=== PATIENT | female | born 1995 | race Caucasian/White ===

== ENCOUNTER 2016-09-04 19:25 | Emergency (ER) | payer OTHER ==
[2016-09-04] MEDS ORDERED: PYRIDOXINE 100 MG/ML 1 ML VIAL IVP STA (19:42)
[2016-09-04] MEDS ORDERED: diphenhydrAMINE 50 MG/ML 1 ML VIAL IVP STA (19:42)
[2016-09-04] MEDS ORDERED: SODIUM CHLORIDE 0.9% 1,000 ML IV STA ×2 (19:42)
[2016-09-04] MEDS ORDERED: SODIUM CHLORIDE 0.9% 500 ML IV STA (19:42)
[2016-09-04 20:11] LABS: Basophils % (A) 0 %; CH 32.2; CHCM 34.7; Eosinophils # (A) 0.1 k/uL (0-0.7); Eosinophils % (A) 1 %; HCT 35.8 % (34.0-46.0); HDW 2.67; HGB 12.3 gm/dL (11.4-16.0); Luc # (Auto) 0.26; Luc % (Auto) 3; Lymphocytes # (A) 2.1 k/uL (1.0-4.8); Lymphocytes % (A) 23 %; MCHC 34.3 g/dL (31.0-37.0); MCV 93.3 fL (80.0-100.0); Mean Platelet Volume 8.7; Monocytes # (A) 0.5 k/uL (0-1.0); Monocytes % (A) 5 %; Neutrophils # (A) 6.5 k/uL (1.3-7.7); Neutrophils % (A) 69 %; RBC 3.83 m/uL (3.80-5.40); RDW 13.5 % (11.5-15.5); WBC 9.5 k/uL (3.8-10.6); WBC (Perox) 10.04
[2016-09-04 20:25] LABS: ALT 28 U/L (9-52); AST 18 U/L (14-36); Alkaline Phosphatase 53 U/L (38-126); Anion Gap 11 mmol/L; Blood Urea Nitrogen 8 mg/dL (7-17); Calcium 9.1 mg/dL (8.4-10.2); Carbon Dioxide 24 mmol/L (22-30); Chloride 103 mmol/L (98-107); Glucose 78 mg/dL (74-99); Magnesium 1.8 mg/dL (1.6-2.3); Non-African American GFR(MDRD) >60 (>60 ml/min/1.73 sqM); Potassium 4.2 mmol/L (3.5-5.1); Sodium 138 mmol/L (137-145); Total Bilirubin 0.3 mg/dL (0.2-1.3); Total Protein 6.2 g/dL (6.3-8.2)
[2016-09-04 20:41] LABS: Amorphous Sediment,Urine Rare /hpf; Appearance,Urine Cloudy (Clear); Bacteria,Urine Rare /hpf; Bilirubin,Urine Negative (Negative); Glucose,Urine (UA) Negative (Negative); Ketones,Urine 3+ (Negative); Leukocyte Esterase,Urine Trace (Negative); Mucus,Urine Rare /hpf; Nitrite,Urine Negative (Negative); PH, Urine 6.5 (5.0-8.0); Particle Count 4159; Protein,Urine Negative (Negative); RBC,Urine 1 /hpf (0-5); Specific Gravity,Urine 1.012 (1.001-1.035); Squamous Epithelial Cell,Urine 4 /hpf (0-4); UA Billing (MACRO vs. MICRO) MICRO; Urobilinogen,Urine <2.0 mg/dL (<2.0); WBC,Urine 3 /hpf (0-5)
--- NOTE | 2016-09-04 20:56 | ED ---
General Adult HPI - General Chief complaint: Nausea/Vomiting/Diarrhea Stated complaint: 16 wks / vomiting Time Seen by Provider: 09/04/16 19:41 Source: patient, RN notes reviewed, old records reviewed Mode of arrival: ambulatory Limitations: no limitations - History of Present Illness Initial comments: This is a 21-year-old female here for nausea vomiting abdominal pain. Patient is around 1314 weeks . This is patient's . Patient also has had gallbladder issues with this . She is complaining of suprapubic of bowel pain as well as epigastric upper quadrant about pain, decreased appetite, anorexia, denying fever. No diarrhea. Patient to call her OB who was concerned and had her come to emergency room. Patient currently not actively vomiting. Denies any chest pain or shortness of breath - Related Data Home Medications Medication Instructions Recorded Confirmed Pnv with Ca,No.72/Iron/FA 1 tab PO DAILY 09/04/16 09/04/16 [ Plus Tablet] Allergies Allergy/AdvReac Type Severity Reaction Status Date / Time tramadol HCl [From Ultra] Allergy Nausea & Verified 09/04/16 20:33 Vomiting & Diarrhea Iodinated Contrast Media - AdvReac Vomiting Verified 09/04/16 20:33 Oral and [Iodinated Contrast Media - IV Dye] Review of Systems ROS Statement: Those systems with pertinent positive or pertinent negative responses have been documented in the HPI. ROS Other: All systems not noted in ROS Statement are negative. Past Medical History Past Medical History: No Reported History History of Any Multi-Drug Resistant Organisms: MRSA Date of last positivie culture/infection: unk MDRO Source:: unk Past Surgical History: Ear Surgery, Tonsillectomy Additional Past Surgical History / Comment(s): arm tumor bx, tubes in and out of ears Past Psychological History: Depression Smoking Status: Former smoker Past Alcohol Use History: None Reported Past Drug Use History: None Reported General Exam Limitations: no limitations General appearance: alert, in no apparent distress Head exam: Present: atraumatic, normocephalic, normal inspection Eye exam: Present: normal appearance, PERRL, EOMI. Absent: scleral icterus, conjunctival injection, periorbital swelling ENT exam: Present: normal exam, mucous membranes moist Neck exam: Present: normal inspection. Absent: tenderness, meningismus, lymphadenopathy Respiratory exam: Present: normal lung sounds bilaterally. Absent: respiratory distress, wheezes, rales, rhonchi, stridor Cardiovascular Exam: Present: regular rate, normal rhythm, normal heart sounds. Absent: systolic murmur, diastolic murmur, rubs, gallop, clicks GI/Abdominal exam: Present: soft, normal bowel sounds. Absent: distended, tenderness, guarding, rebound, rigid Extremities exam: Present: normal inspection, full ROM, normal capillary refill. Absent: tenderness, pedal edema, joint swelling, calf tenderness Back exam: Present: normal inspection Neurological exam: Present: alert, oriented X3, CN II-XII intact Psychiatric exam: Present: normal affect, normal mood Skin exam: Present: warm, dry, intact, normal color. Absent: rash Course Vital Signs 09/04/16 09/04/16 19:33 22:00 Temperature 98.0 F 97.8 F Pulse Rate 93 82 Respiratory 18 16 Rate Blood Pressure 104/62 107/64 O2 Sat by Pulse 97 98 Oximetry - Reevaluation(s) Reevaluation #1: 09/04/16 22:09 Patient's symptoms are improved Medical Decision Making - Medical Decision Making 18-year-old female to ER for nausea vomiting anorexia, positive . Imaging and lab tests is normal. Patient's symptoms are improved and can be discharged home, follow-up with primary care doctor for further evaluation of decreased appetite nausea and vomiting - Lab Data Result diagrams: 09/04/16 20:05 09/04/16 20:05 Lab Results 09/04/16 09/04/16 09/04/16 Range/Units 20:05 20:05 20:05 WBC 9.5 (3.8-10.6) k/uL RBC 3.83 (3.80-5.40) m/uL Hgb 12.3 (11.4-16.0) gm/dL Hct 35.8 (34.0-46.0) % MCV 93.3 (80.0-100.0) fL MCH 32.0 (25.0-35.0) pg MCHC 34.3 (31.0-37.0) g/dL RDW 13.5 (11.5-15.5) % Plt Count 160 (150-450) k/uL Neutrophils % 69 % Lymphocytes % 23 % Monocytes % 5 % Eosinophils % 1 % Basophils % 0 % Neutrophils # 6.5 (1.3-7.7) k/uL Lymphocytes # 2.1 (1.0-4.8) k/uL Monocytes # 0.5 (0-1.0) k/uL Eosinophils # 0.1 (0-0.7) k/uL Basophils # 0.0 (0-0.2) k/uL Sodium 138 (137-145) mmol/L Potassium 4.2 (3.5-5.1) mmol/L Chloride 103 (98-107) mmol/L Carbon Dioxide 24 (22-30) mmol/L Anion Gap 11 mmol/L BUN 8 (7-17) mg/dL Creatinine 0.40 L (0.52-1.04) mg/dL Est GFR (MDRD) Af Amer >60 (>60 ml/min/1.73 sqM) Est GFR (MDRD) Non-Af >60 (>60 ml/min/1.73 sqM) Glucose 78 (74-99) mg/dL Plasma Lactic Acid Cortez 0.7 (0.7-2.0) mmol/L Calcium 9.1 (8.4-10.2) mg/dL Magnesium 1.8 (1.6-2.3) mg/dL Total Bilirubin 0.3 (0.2-1.3) mg/dL AST 18 (14-36) U/L ALT 28 (9-52) U/L Alkaline Phosphatase 53 (38-126) U/L Total Protein 6.2 L (6.3-8.2) g/dL Albumin 3.8 (3.5-5.0) g/dL Urine Color Urine Appearance (Clear) Urine pH (5.0-8.0) Ur Specific [employer] (1.001-1.035) Urine Protein (Negative) Urine Glucose (UA) (Negative) Urine Ketones (Negative) Urine Blood (Negative) Urine Nitrate (Negative) Urine Bilirubin (Negative) Urine Urobilinogen (<2.0) mg/dL Ur Leukocyte Esterase (Negative) Urine RBC (0-5) /hpf Urine WBC (0-5) /hpf Ur Squamous Epith Cells (0-4) /hpf Amorphous Sediment (None) /hpf Urine Bacteria (None) /hpf Urine Mucus (None) /hpf 09/04/16 Range/Units 20:30 WBC (3.8-10.6) k/uL RBC (3.80-5.40) m/uL Hgb (11.4-16.0) gm/dL Hct (34.0-46.0) % MCV (80.0-100.0) fL MCH (25.0-35.0) pg MCHC (31.0-37.0) g/dL RDW (11.5-15.5) % Plt Count (150-450) k/uL Neutrophils % % Lymphocytes % % Monocytes % % Eosinophils % % Basophils % % Neutrophils # (1.3-7.7) k/uL Lymphocytes # (1.0-4.8) k/uL Monocytes # (0-1.0) k/uL Eosinophils # (0-0.7) k/uL Basophils # (0-0.2) k/uL Sodium (137-145) mmol/L Potassium (3.5-5.1) mmol/L Chloride (98-107) mmol/L Carbon Dioxide (22-30) mmol/L Anion Gap mmol/L BUN (7-17) mg/dL Creatinine (0.52-1.04) mg/dL Est GFR (MDRD) Af Amer (>60 ml/min/1.73 sqM) Est GFR (MDRD) Non-Af (>60 ml/min/1.73 sqM) Glucose (74-99) mg/dL Plasma Lactic Acid Cortez (0.7-2.0) mmol/L Calcium (8.4-10.2) mg/dL Magnesium (1.6-2.3) mg/dL Total Bilirubin (0.2-1.3) mg/dL AST (14-36) U/L ALT (9-52) U/L Alkaline Phosphatase (38-126) U/L Total Protein (6.3-8.2) g/dL Albumin (3.5-5.0) g/dL Urine Color Yellow Urine Appearance Cloudy H (Clear) Urine pH 6.5 (5.0-8.0) Ur Specific [employer] 1.012 (1.001-1.035) Urine Protein Negative (Negative) Urine Glucose (UA) Negative (Negative) Urine Ketones 3+ H (Negative) Urine Blood Negative (Negative) Urine Nitrate Negative (Negative) Urine Bilirubin Negative (Negative) Urine Urobilinogen <2.0 (<2.0) mg/dL Ur Leukocyte Esterase Trace H (Negative) Urine RBC 1 (0-5) /hpf Urine WBC 3 (0-5) /hpf Ur Squamous Epith Cells 4 (0-4) /hpf Amorphous Sediment Rare H (None) /hpf Urine Bacteria Rare H (None) /hpf Urine Mucus Rare H (None) /hpf - Radiology Data Radiology results: report reviewed (Ultrasound gallbladder negative for acute disease, ultrasound pelvis negative), image reviewed Disposition Clinical Impression: Abdominal pain affecting , Hyperemesis gravidarum Disposition: HOME SELF-CARE Condition: Good Instructions: Acute Nausea and Vomiting (ED) Referrals: Wiliam Prasad MD [Primary Care Provider] - 1-2 days
--- NOTE | 2016-09-04 21:49 | US ---
EXAMINATION TYPE: US gallbladder DATE OF EXAM: 09/04/2016 9:12 PM COMPARISON: NONE CLINICAL HISTORY: 16 weeks , vomiting, r/o gb anomalies. EXAM MEASUREMENTS: Liver Length: 15.0 cm Gallbladder Wall: 0.2 cm ChD: 0.3 cm Right Kidney: 11.3 x 6.1 x 4.5 cm TECHNOLOGIST IMPRESSION: Pancreas: tail not seen due to overlying bowel gas Liver: wnl Gallbladder: wnl Evidence for sonographic Montalvo's sign: neg CHD: wnl Right Kidney: wnl IMPRESSION: Normal gallbladder. No gallstones or dilated ducts. Right kidney appears normal. No free fluid. Normal Values: Liver Length: < 16cm wnl, 17-18cm upper limits, >18cm enlarged Renal Length = 9 - 12cm GB Wall: < 0.3cm CBD: < 0.6cm or < 1.0cm post cholecystectomy
--- NOTE | 2016-09-04 21:52 | US ---
EXAMINATION TYPE: US OB >= 14 wk fetus DATE OF EXAM: 09/04/2016 9:35 PM COMPARISON: None CLINICAL HISTORY: vomiting, 16 weeks , look at babies growth, TECHNIQUE: Transabdominal (TA) GESTATIONAL AGE / DATING Dates by LMP: (16 weeks/5 days) EDC: 02/14/2017 Dates by Current Scan: (15 weeks/6 days) EDC: 02/20/2017 SURVEY IUP: Single PLACENTA: Anterior PREVIA: No Previa LUKE: 10.1 cm CERVICAL LENGTH (transabdominal: norm > 3.0cm): 3.6 cm BIOMETRY PRESENTATION: Breech LIE: Longitudinal BPD: 3.2 cm 15 weeks / 6 days HC: 12.2 cm 16 weeks / 1 days AC: 9.7 cm 15 weeks / 5 days FL: 1.7 cm 15 weeks / 1 days ESTIMATED WEIGHT IN GRAMS: 126.5 grams ESTIMATED WEIGHT IN LBS/OZS: 0 lbs. 4 oz. WEIGHT PERCENTAGE BASED ON ESTABLISHED DATES: <3% HC/AC: 1.3 Normal FL/AC: 17.7 Normal HEART RATE: 160 bpm RHYTHM: Normal TECHNOLOGIST IMPRESSION: Live IUP measuring 15 weeks 6 days IMPRESSION: The ultrasound gestational age is 15 weeks 6 days. Cervix is closed. I see no complicating process. I do not have an old exam to compare to evaluate growth rate.
[2016-09-04 22:01] VITALS: BP 107/64; PULSE 82; RESP 16; TEMP 97.8
== END 2016-09-04 22:38 | disposition home or self-care (01) ==
LOC: EC 19:25
DX: O21.0 Mild hyperemesis gravidarum (principal); Z3A.15 15 weeks gestation of pregnancy; Z79.899 Other long term (current) drug therapy; Z88.5 Allergy status to narcotic agent; Z91.041 Radiographic dye allergy status; Z87.891 Personal history of nicotine dependence
CPT/HCPCS: 99284; 96374; 96375; 96361 ×2; 36415; 93005; 80053; 83605; 83735; 85025; 81001; 87086; 76805; 76705; J1200; J3415

== ENCOUNTER 2017-06-16 14:02 | Emergency (ER) | payer OTHER ==
[2017-06-16] MEDS ORDERED: ORPHENADRINE 30 MG/ML 2 ML VIAL IVP STA (14:28)
[2017-06-16] MEDS ORDERED: METOCLOPRAMIDE 5 MG/ML 2 ML VIAL IVP STA (14:28)
[2017-06-16] MEDS ORDERED: diphenhydrAMINE 50 MG/ML 1 ML VIAL IVP STA (14:28)
[2017-06-16] MEDS ORDERED: KETOROLAC 30 MG/ML 1 ML VIAL IVP STA (14:28)
--- NOTE | 2017-06-16 14:39 | ED ---
General Adult HPI - General Chief complaint: Head Injury Stated complaint: neck pain Time Seen by Provider: 06/16/17 14:15 Source: patient Mode of arrival: ambulatory Limitations: no limitations - History of Present Illness Initial comments: Nadiya is a 22-year-old female who presents to the emergency department for evaluation of headache and neck pain after a slip and fall yesterday. Patient reports that yesterday afternoon she was playing outside with her children, she states that she was running in the rain when she's and fell onto her right side , she reports she fell laterally and believes she may have struck the right side of her head on a toy on the ground. She denies any loss of consciousness. She was able to stand up immediately and ambulate independently into her home. She reports that she felt well and immediately afterwards but woke up this morning with aching pain in her neck and a headache. She does have a history of chronic migraines for which she takes Tylenol for and Fioricet. She reports that she has tried both of these this morning with no improvement in the neck pain or headache. - Related Data Home Medications Medication Instructions Recorded Confirmed Acetaminophen-Codeine 300-30mg 1 tab PO Q6H PRN 06/16/17 06/16/17 [Tylenol #3] Butalb/APAP/Caff 50-325-40Mg 1 tab PO Q4H PRN 06/16/17 06/16/17 [Fioricet 50-325-40] Ibuprofen [Motrin] 800 mg PO Q8H PRN 06/16/17 06/16/17 Previous Rx's Medication Instructions Recorded Methocarbamol [Robaxin-750] 750 mg PO TID #30 tablet 06/16/17 Allergies Allergy/AdvReac Type Severity Reaction Status Date / Time Iodinated Contrast- Oral and Allergy Rash/Hives Verified 06/16/17 14:43 IV Dye [Iodinated Contrast Media - IV Dye] tramadol HCl [From Ultram] Allergy Rash/Hives Verified 06/16/17 14:43 Review of Systems ROS Statement: Those systems with pertinent positive or pertinent negative responses have been documented in the HPI. ROS Other: All systems not noted in ROS Statement are negative. Past Medical History Past Medical History: No Reported History Additional Past Medical History / Comment(s): migraines, chronic neck pain./ History of Any Multi-Drug Resistant Organisms: None Reported Date of last positivie culture/infection: unk MDRO Source:: unk Past Surgical History: Ear Surgery, Tonsillectomy Additional Past Surgical History / Comment(s): arm tumor bx, tubes in and out of ears Past Psychological History: Anxiety, Depression Smoking Status: Current every day smoker Past Alcohol Use History: None Reported Past Drug Use History: None Reported General Exam Limitations: no limitations General appearance: alert, in no apparent distress Head exam: Present: atraumatic, normocephalic, normal inspection Eye exam: Present: normal appearance, PERRL, EOMI. Absent: scleral icterus, conjunctival injection, periorbital swelling, periorbital tenderness ENT exam: Present: normal exam, other (poor dentition, evidence of multiple tooth extractions, no broken teeth or oral injury) Neck exam: Present: normal inspection, tenderness (tenderness to palpation of paraspinal muscles, no midline tenderness), full ROM. Absent: lymphadenopathy, thyromegaly Respiratory exam: Present: normal lung sounds bilaterally. Absent: respiratory distress Cardiovascular Exam: Present: regular rate, normal rhythm GI/Abdominal exam: Present: soft, normal bowel sounds. Absent: distended Rectal exam: Present: deferred Extremities exam: Present: normal inspection, full ROM, normal capillary refill. Absent: pedal edema Back exam: Present: normal inspection, full ROM Neurological exam: Present: alert, oriented X3, CN II-XII intact, normal gait, other (normal strength in bilateral upper and lower extremities) Expanded Neurological exam: Present: protecting the airway. Absent: inattentive, memory loss-remote event, memory loss-recent event, ataxia, receptive aphasia, expressive aphasia, total aphasia, tremor Patient oriented to: Present: person, place, time Speech: Present: fluid speech Cranial nerves: EOM's Intact: Normal, Facial Sensation: Normal Motor strength exam: RUE: 5, LUE: 5, RLE: 5, LLE: 5 Eye Response: (4) open spontaneously Motor Response: (6) obeys commands Verbal Response: (5) oriented Psychiatric exam: Present: flat affect Skin exam: Present: warm, dry, intact. Absent: cyanosis, diaphoretic, erythema , petechiae, pallor, mottled, abrasion Course Vital Signs 06/16/17 06/16/17 14:09 16:07 Temperature 98.5 F 98 F Pulse Rate 80 79 Respiratory 20 16 Rate Blood Pressure 109/59 112/56 O2 Sat by Pulse 98 99 Oximetry Medical Decision Making - Medical Decision Making Patient was seen and evaluated, history was obtained from the patient and review of medical record History with a slip and fall yesterday, may have struck her head on a toy or the ground. No loss of consciousness, no memory change, no nausea or vomiting, no blurred vision this time the patient has no signs of significant intracranial injury or even a concussion. Patient with full range of motion the cervical spine, no focal neurologic deficit, no evidence of intoxication, no distracting injury. At this time the patient's cervical spine is cleared via Nexus criteria no further indication for imaging Patient with tenderness to palpation of the paraspinal muscles and complain of a headache, likely similar to a whiplash injury. At this point I will treat for headache. Patient received medications, was reevaluated and was sleeping comfortably in the bed. I woke the patient asked her how she was feeling short reported that she was feeling better. I had a conversation with patient regarding her symptoms. I advised her that she is likely suffering from cervical muscle strain and that she will likely have some tightness. I advised her to into her usual activities of daily living but to avoid any heavy lifting. I discussed with her the importance of stretching to prevent any further muscle spasm. I advised the patient we'll discharge her home on a by mouth muscle relaxant. I advised her to alternate heat and ice and to maintain hydration. All questions pertaining to care were answered to the best of my ability and patient was discharged home in stable condition. Disposition Clinical Impression: Fall at home, Cervical muscle strain, Headache Disposition: HOME SELF-CARE Condition: Good Instructions: Cervical Strain (ED) Prescriptions: Methocarbamol [Robaxin-750] 750 mg PO TID #30 tablet Referrals: Wiliam Prasad MD [Primary Care Provider] - 1-2 days Time of Disposition: 15:59
[2017-06-16 16:08] VITALS: BP 112/56; PULSE 79; RESP 16; TEMP 98
== END 2017-06-16 16:24 | disposition home or self-care (01) ==
LOC: EC 14:02
DX: S16.1XXA Strain of muscle, fascia and tendon at neck level, initial encounter (principal); R51 Headache; F17.200 Nicotine dependence, unspecified, uncomplicated; Z86.69 Personal history of other diseases of the nervous system and sense organs; Z91.041 Radiographic dye allergy status; Z88.5 Allergy status to narcotic agent; W01.0XXA Fall on same level from slipping, tripping and stumbling without subsequent striking against object, initial encounter; Y93.89 Activity, other specified; Y92.009 Unspecified place in unspecified non-institutional (private) residence as the place of occurrence of the external cause
CPT/HCPCS: 96375 ×4; 96374 ×2; 99283 ×2; J1200; J2360; J2765; J1885

== ENCOUNTER 2018-03-07 12:03 | Inpatient (IN) | payer OTHER ==
--- NOTE | 2018-03-07 12:46 | US ---
EXAMINATION TYPE: US OB limited DATE OF EXAM: 03/07/2018 COMPARISON: NONE CLINICAL HISTORY: heart tones. EXAM PERFORMED: Transabdominal (TA) GESTATIONAL AGE / DATING Physician Established: (37 weeks/1 days) EDC: 03/27/2018 No growth performed on today?s study per ordering physician HEART RATE: No heart tones Nurse in room for ultrasound and aware of results. IMPRESSION: DEMISE.
[2018-03-07] MEDS ORDERED: METHYLERGONOVINE 0.2 MG/ML 1 ML AMP IM PRN (13:01)
[2018-03-07] MEDS ORDERED: LIDOCAINE 1% (PF) 10 MG/ML (30 ML SDV) SQ PRN (13:01)
[2018-03-07] MEDS ORDERED: ACETAMINOPHEN IV (For NPO) 1,000 MG in EMPTY BAG 1 BAG IVPB STA ×2 (13:19→15:38)
[2018-03-07] MEDS: LACTATED RINGERS 1,000 ML IV SCH ×4 (13:22→22:01)
[2018-03-07 13:31] LABS: Glucose,Urine (UA) 1+ (Negative); Ketones,Urine Negative (Negative); Protein,Urine Negative (Negative)
[2018-03-07 13:31] LABS: Anisocytosis Slight; Basophils # (A) 0.1 k/uL (0-0.2); Basophils % (A) 0 %; Eosinophils # (A) 0.2 k/uL (0-0.7); Eosinophils % (A) 2 %; HCT 29.2 % (34.0-46.0); HGB 8.9 gm/dL (11.4-16.0); Hypochromasia Marked; Lymphocytes # (A) 1.9 k/uL (1.0-4.8); Lymphocytes % (A) 16 %; MCHC 30.5 g/dL (31.0-37.0); MCV 75.4 fL (80.0-100.0); Mean Platelet Volume 9.5; Microcytosis Slight; Monocytes # (A) 0.6 k/uL (0-1.0); Monocytes % (A) 5 %; Neutrophils # (A) 9.4 k/uL (1.3-7.7); Neutrophils % (A) 76 %; Platelet Count 161 k/uL (150-450); Poikilocytosis Moderate; RBC 3.87 m/uL (3.80-5.40); RDW 17.8 % (11.5-15.5); WBC 12.4 k/uL (3.8-10.6)
[2018-03-07] MEDS ORDERED: CITRIC ACID-SODIUM CITRATE 15 ML CUP PO ONE ×2 (13:32→13:33)
[2018-03-07] MEDS ORDERED: ceFAZolin IN SWFI 2 GM/20 ML SYRINGE IVP ONE (13:32)
[2018-03-07 13:39] VITALS: BMI 2867.7
[2018-03-07 13:41] LABS: Amphetamine Screen,Urine Not Detected (NotDetected); Barbiturate Screen,Urine Not Detected (NotDetected); Benzodiazepines Screen,Urine Not Detected (NotDetected); Cocaine Screen,Urine Not Detected (NotDetected); Methadone Screen, Urine Not Detected (NotDetected); Opiate Screen,Urine Not Detected (NotDetected); Oxycodone Screen, Urine Not Detected (NotDetected); Phencyclidine Screen,Urine Not Detected (NotDetected); Tricyclic Antidepressant,Urine Not Detected (NotDetected); Urn Cannabinoid Scrn Not Detected (NotDetected)
[2018-03-07 14:04] LABS: Partial Thromboplastin Time 21.8 sec (22.0-30.0); Prothrombin Time 9.7 sec (9.0-12.0)
[2018-03-07] MEDS ORDERED: fentaNYL (PF) 50 MCG/ML 2 ML AMP ONE (14:22)
[2018-03-07] MEDS ORDERED: PHENYLEPHRINE-0.9% NACL SYG 1 MG/10 ML SYRINGE ONE (14:22)
[2018-03-07] MEDS ORDERED: KETOROLAC 30 MG/ML 1 ML VIAL ONE (14:22)
[2018-03-07] MEDS ORDERED: PROPOFOL 10 MG/ML 20 ML VIAL IV ONE (14:22)
[2018-03-07] MEDS ORDERED: OXYTOCIN 10 UNIT/ML 1 ML VIAL ONE (14:22)
[2018-03-07] MEDS ORDERED: DEXAMETHASONE SOD PHOS (MDV) 100 MG/10 ML VIAL ONE (14:22)
[2018-03-07] MEDS ORDERED: ONDANSETRON 4 MG/2 ML VIAL ONE (14:22)
[2018-03-07] MEDS ORDERED: HYDROmorphone (PF) 1 MG/ML ONE (14:22)
[2018-03-07] MEDS ORDERED: MIDAZOLAM 2 MG/2 ML VIAL ONE (14:22)
[2018-03-07] MEDS ORDERED: diphenhydrAMINE 25 MG CAP PO PRN (15:35)
[2018-03-07] MEDS ORDERED: METOCLOPRAMIDE 5 MG/ML 2 ML VIAL IVP PRN (15:35)
[2018-03-07] MEDS ORDERED: diphenhydrAMINE 50 MG/ML 1 ML VIAL IVP PRN ×2 (15:35)
[2018-03-07] MEDS ORDERED: HYDROcodone/APAP 5-325MG 1 EACH TAB PO PRN (15:35)
[2018-03-07] MEDS ORDERED: ZOLPIDEM 5 MG TAB PO PRN (15:35)
[2018-03-07] MEDS ORDERED: ACETAMINOPHEN TAB 325 MG TAB PO PRN (15:35)
[2018-03-07] MEDS ORDERED: diphenhydrAMINE 50 MG CAP PO PRN (15:35)
[2018-03-07] MEDS ORDERED: NALOXONE 0.4 MG/ML 1 ML VIAL IV PRN (15:35)
[2018-03-07] MEDS ORDERED: ONDANSETRON 4 MG/2 ML VIAL IVP PRN (15:35)
--- NOTE | 2018-03-07 15:35 | P.OP ---
Date of Procedure: 03/07/18 Preoperative Diagnosis: IUP at 37 and one sevenths weeks, interuterine demise, history of C- section 1 Postoperative Diagnosis: Same, plus uterine window amnioticmembrane noted Procedure(s) Performed: Repeat section Anesthesia: spinal Surgeon: Monika Holloway Estimated Blood Loss (ml): 500 IV fluids (ml): 1,200 Urine output (ml): 300 Pathology: other (Placenta, fetus) Condition: stable Disposition: observation Indications for Procedure: History of 1, patient request Operative Findings: Significant thinning of the lower uterine segment with amniotic membranes visualized, extensive bladder adhesions to the lower uterine segment Description of Procedure: Patient was counseled in the triage room and the risks of given interuterine demise patient elects given prior history. She was taken to the operating suite where spinal anesthesia was then obtained by the anesthesia department. She was prepped and draped in normal sterile fashion in the dorsal supine position. A Avila catheter was placed under sterile technique. A scalpel is then used to make a Pfannenstiel incision through her prior incision. This was carried through to the underlying layer of fascia, the fascia was incised and this incision was extended laterally with Lara scissors. The superior aspect of the fascial incision was then grasped with Kohker clamps, elevated and underlying rectus muscle was dissected off sharply. This was then repeated on the inferior aspect of the fascial incision which was grasped with Kohker clamps, elevated and the rectus muscles dissected off sharply once again. The rectus muscles were in the midline, the peritoneum was identified and entered. The incision was then extended superiorly and inferiorly with good visualization the bladder. The bladder blade was then inserted and a hysterotomy incision was then made with the scalpel. The amniotic sac was then ruptured and bloody fluid was noted. The fetus was then delivered in a cephalic presentation without difficulty and handed off to awaiting RN. Weight of 7 lbs. 1 oz. with Apgars of 0 and 0. Afterwards the uterus was exteriorized and cleared of all clots and debris after the placenta had been removed manually. The uterine incision was then closed with 0 Vicryl in a running locked fashion. Bleeding was noted and the left-hand side of the hysterotomy incision a [id number] suture was used to obtain hemostasis. Uterus then returned to the abdomen and hysterotomy site was inspected once again, a small amount of bleeding was noted on the left-hand side and FloSeal was applied across the hysterotomy incision, hemostasis was then appreciated. The fascia was then closed in a running fashion from one lateral edge the midline and the other lateral to midline. Subcutaneous tissue was then irrigated and hemostatic. Skin was then closed with 4-0 Vicryl subcuticular fashion. ALL COUNTS ARE correct 2 patient tolerated procedure well and was taken back to her room in stable condition
--- NOTE | 2018-03-07 15:35 | P.HPOB ---
History of Present Illness H&P Date: 03/07/18 Chief Complaint: IUP @ 37 weeks, limited PNC, IUFD This is a 22yo at 37 weeks based on first trimester US done at [facility]. EDC 03/27based on 10 week scan she presents to OB with c/o decreased FM, she did feel some movement yesterday. she denies VB, LOF, occasional cramping. she had 2 visits with tessie velázquez. she was unable to continue care due to loss of insurance. she has a h/o 1 vaginal delivery, then a section due to NRFHTs. she did discuss with Dr Fishman doing a RCS given her short interconceptual period. Review of Systems Constitutional: Denies chills, Denies fatigue, Denies fever Ears, nose, mouth and throat: Reports headache Cardiovascular: Denies chest pain, Denies edema Respiratory: Denies cough, Denies dyspnea Gastrointestinal: Denies constipation, Denies diarrhea Genitourinary: Reports Past Medical History Past Medical History: No Reported History Additional Past Medical History / Comment(s): migraines, chronic neck pain./ History of Any Multi-Drug Resistant Organisms: None Reported Date of last positivie culture/infection: unk MDRO Source:: unk Past Surgical History: Ear Surgery, Tonsillectomy Additional Past Surgical History / Comment(s): arm tumor bx, tubes in and out of ears Past Psychological History: Anxiety, Depression Smoking Status: Current every day smoker Past Alcohol Use History: None Reported Past Drug Use History: None Reported - Past Family History Father Family Medical History: No Reported History Medications and Allergies Home Medications Medication Instructions Recorded Confirmed Type Acetaminophen Tab [Tylenol Tab] 650 mg PO ONCE PRN 03/07/18 03/07/18 History Allergies Allergy/AdvReac Type Severity Reaction Status Date / Time Iodinated Contrast- Oral and Allergy Rash/Hives Verified 06/16/17 14:43 IV Dye [Iodinated Contrast Media - IV Dye] tramadol HCl [From Ultram] Allergy Rash/Hives Verified 06/16/17 14:43 Exam Osteopathic Statement: *. No significant issues noted on an osteopathic structural exam other than those noted in the History and Physical/Consult. Intake and Output 03/06/18 03/07/18 03/07/18 22:59 06:59 14:59 Other: Weight 64.41 kg - OBG Physical Exam Abdomen: gravid Cervix: 2/50/-3 ballotable, posterior and firm Uterus: enlarged and appropriate for GA Results Result Diagrams: 03/07/18 13:13 Assessment and Plan (1) IUFD (intrauterine ) Current Visit: Yes Status: Acute Code(s): FWD2393 - SNOMED Code(s): 567415936 (2) Limited care Current Visit: Yes Status: Acute Code(s): O09.30 - SUPRVSN OF PREG W INSUFFICIENT ANTENAT CARE, UNSP TRIMESTER SNOMED Code(s): 220814856 (3) H/O section Current Visit: Yes Status: Acute Code(s): Z98.891 - HISTORY OF UTERINE SCAR FROM PREVIOUS SURGERY SNOMED Code(s): 773668588 Plan: US is done to confirm NO HEART TONES. will draw panel and PT/PTT/INR fibrinogen, options for delivery reviewed. she initally desires a RCS will consider VD. she is going to discuss with her mom and let us know her decision.
[2018-03-07] MEDS ORDERED: IBUPROFEN IV 800 MG in SODIUM CHLORIDE 0.9% 250 ML IV ONE (15:38)
[2018-03-07] MEDS ORDERED: OXYTOCIN 20 UNITS/1000 ML NS 1,000 ML IV SCH (15:45)
[2018-03-07 18:37] LABS: Hemoglobin A1C 5.7 % (4.0-6.0)
[2018-03-07] MEDS ORDERED: LORazepam 0.5 MG TAB PO PRN (21:00)
[2018-03-07] MEDS ORDERED: ACETAMINOPHEN IV (For NPO) 1,000 MG in EMPTY BAG 1 BAG IVPB ONE (22:00)
[2018-03-07] MEDS: SENNOSIDES-DOCUSATE SODIUM 1 EACH TAB PO SCH (23:30)
[2018-03-08] MEDS: IBUPROFEN 600 MG TAB PO PRN ×3 (03:45→16:56)
[2018-03-08] MEDS: SENNOSIDES-DOCUSATE SODIUM 1 EACH TAB PO SCH (07:55)
[2018-03-08] MEDS: HYDROcodone/APAP 7.5-325MG 1 EACH TAB PO PRN ×2 (07:56→14:18)
--- NOTE | 2018-03-08 08:08 | P.PNOBGPC ---
Subjective - Subjective Principal diagnosis: POD 1 RCS Interval history: Patient did well overnight. She is complaining of some pain which was managed with Ofirmev and R overnight. She was given Ambien to rest. She is tearful this morning and were requesting depression medications as she struggled with depression after both of her prior deliveries. She states her lochia is moderate, she has voided on her own. She is tolerating a regular diet without nausea or vomiting. Patient reports: Reports appetite normal, Reports voiding normally, Reports ambulating normally [place]: (IUFD) Objective - Vital Signs Latest vital signs: Vital Signs Temp Pulse Resp BP Pulse Ox 03/08/18 03:51 98.2 F 98 15 128/62 99 03/07/18 23:31 98.3 F 97 16 118/71 99 03/07/18 20:00 98.2 F 89 16 112/62 99 03/07/18 17:30 97.3 F L 88 18 111/75 99 03/07/18 17:00 96.9 F L 93 18 114/69 97 03/07/18 16:30 97.2 F L 98 18 113/68 99 03/07/18 16:15 97.4 F L 89 18 119/66 100 03/07/18 16:00 97.0 F L 84 18 110/59 100 03/07/18 15:45 96.7 F L 104 H 18 118/57 100 03/07/18 15:30 96.7 F L 113 H 20 126/58 100 03/07/18 13:35 97.3 F L 105 H 16 123/70 Intake and Output 03/07/18 03/08/18 03/08/18 22:59 06:59 14:59 Intake Total 1900 Output Total 400 2100 Balance -400 -200 Intake: Intake, IV Titration 1900 Amount ACETAMINOPHEN IV (For NPO 100 ) 1,000 mg In Empty Bag 1 bag @ 400 mls/hr IVPB ONCE ONE Rx#:[id number] Ibuprofen IV 800 mg In 500 Sodium Chloride 0.9% 250 ml @ 500 mls/hr IV ONCE ONE Rx#:[id number] Lactated Ringers 1,000 ml 300 @ 125 mls/hr IV .Q8H BENJAMIN Rx#:[id number] Oxytocin 20 Units/1000 ml 1000 Ns 1,000 ml @ Per Protocol IV .Q0M BENJAMIN Rx#: [id number] Output: Urine 400 2100 Uretheral ([place]) 1400 Other: # Voids 1 - Exam Extremities: Present: normal Abdomen: Present: normal appearance, soft Incision: Present: normal, dry, intact Uterus: Present: normal, firm - Labs Labs: Abnormal Lab Results - Last 24 Hours (Table) 03/07/18 03/07/18 03/07/18 Range/Units 13:13 13:13 13:15 WBC 12.4 H (3.8-10.6) k/uL Hgb 8.9 L (11.4-16.0) gm/dL Hct 29.2 L (34.0-46.0) % MCV 75.4 L (80.0-100.0) fL MCH 23.0 L (25.0-35.0) pg MCHC 30.5 L (31.0-37.0) g/dL RDW 17.8 H (11.5-15.5) % Neutrophils # 9.4 H (1.3-7.7) k/uL APTT 21.8 L (22.0-30.0) sec Urine Glucose (UA) 1+ H (Negative) Assessment and Plan (1) IUFD (intrauterine ) Current Visit: Yes Status: Acute Code(s): WIU4466 - SNOMED Code(s): 012606157 (2) Limited care Current Visit: Yes Status: Acute Code(s): O09.30 - SUPRVSN OF PREG W INSUFFICIENT ANTENAT CARE, UNSP TRIMESTER SNOMED Code(s): 555023302 (3) H/O section Current Visit: Yes Status: Acute Code(s): Z98.891 - HISTORY OF UTERINE SCAR FROM PREVIOUS SURGERY SNOMED Code(s): 156909318 (4) Status post repeat low transverse section Current Visit: Yes Status: Acute Code(s): Z98.891 - HISTORY OF UTERINE SCAR FROM PREVIOUS SURGERY SNOMED Code(s): 688145124 Plan: Encouraged increase ambulation today. Will transitioned to oral pain medication. Discussed medication for depression she states she has been on multiple things will start with Zoloft. Discussed autopsy given IUFD, multiple questions were answered and she declines.
[2018-03-08 08:17] LABS: Anisocytosis Slight; Basophils % (A) 0 %; Eosinophils % (A) 0 %; HCT 26.1 % (34.0-46.0); HGB 7.9 gm/dL (11.4-16.0); Hypochromasia Marked; Lymphocytes # (A) 2.4 k/uL (1.0-4.8); Lymphocytes % (A) 14 %; MCH 22.6 pg (25.0-35.0); MCHC 30.2 g/dL (31.0-37.0); Mean Platelet Volume 9.7; Microcytosis Slight; Monocytes # (A) 0.8 k/uL (0-1.0); Monocytes % (A) 5 %; Neutrophils # (A) 13.4 k/uL (1.3-7.7); Neutrophils % (A) 79 %; Platelet Count 194 k/uL (150-450); Poikilocytosis Moderate; RBC 3.47 m/uL (3.80-5.40); RDW 17.7 % (11.5-15.5); WBC 17.1 k/uL (3.8-10.6)
[2018-03-08 09:06] VITALS: RESP 18
[2018-03-08] MEDS ORDERED: SERTRALINE 50 MG TAB PO SCH (10:00)
[2018-03-08 16:52] VITALS: BP 118/80; PULSE 90; TEMP 98.2
--- NOTE | 2018-03-08 18:32 | P.DS ---
Providers Date of admission: 03/07/18 13:15 Expected date of discharge: 03/08/18 Attending physician: Monika Holloway Primary care physician: Stated None - Discharge Diagnosis(es) (1) IUFD (intrauterine ) Current Visit: Yes Status: Acute (2) Limited care Current Visit: Yes Status: Acute (3) H/O section Current Visit: Yes Status: Acute (4) Status post repeat low transverse section Current Visit: Yes Status: Acute Hospital Course: This is a pleasant 22-year-old 4 para 2011 that presented at 37 and one sevenths weeks with complaints of decreased movement. Patient states that she had felt the baby yesterday but nothing today. Ultrasound was performed and no heart tones were noted. Patient had a history of 1 vaginal delivery and a primary secondary to nonreassuring heart tones. Patient elects repeat today. was performed without difficulty. Of note she had a large uterine window with extensive bladder adhesions in the lower uterine segment. Patient's postoperative course has been uneventful. Her mood has been appropriate for this loss. Her vaginal bleeding is moderate. Her pain is controlled with oral pain medications. She is tolerating a regular diet without nausea or vomiting. Intrauterine demise of a female infant delivered at 1442 Apgars of 0 and 0. Weight 7 lbs. 1 oz. Patient Condition at Discharge: Good Plan - Discharge Summary New Discharge Prescriptions: No Action Acetaminophen Tab [Tylenol Tab] 650 mg PO ONCE PRN PRN Reason: pain Discharge Medication List Acetaminophen Tab [Tylenol Tab] 650 mg PO ONCE PRN 03/07/18 [History] Follow up Appointment(s)/Referral(s): Monika Holloway DO [Doctor of Osteopathic Medicine] - 1 Week Patient Instructions/Handouts: (DC), (GEN) Activity/Diet/Wound Care/Special Instructions: No intercourse or tub baths until 6 weeks
[2018-03-09 13:57] LABS: HIV AB P24 Non-Reactive (Non-Reactive); HIV P24 AG Non-Reactive (Non-Reactive)
== END 2018-03-08 18:52 | disposition home or self-care (01) | DRG 766 ==
LOC: FBPOP 12:03 → 4FBP 13:15
PROVIDERS: ADMIT Obstetrics & Gynecology Obstetrics; ATTEND Obstetrics & Gynecology Obstetrics
PROC: 10D00Z1 Extraction of Products of Conception, Low, Open Approach (ICD-10-PCS; principal; 2018-03-07 15:00)
DX: O36.4XX0 Maternal care for intrauterine death, not applicable or unspecified (principal); O34.211 Maternal care for low transverse scar from previous cesarean delivery; Z3A.37 37 weeks gestation of pregnancy; Z37.1 Single stillbirth; O99.334 Smoking (tobacco) complicating childbirth; O99.344 Other mental disorders complicating childbirth; F32.9 Major depressive disorder, single episode, unspecified; F41.9 Anxiety disorder, unspecified; F17.200 Nicotine dependence, unspecified, uncomplicated; G43.909 Migraine, unspecified, not intractable, without status migrainosus; M54.2 Cervicalgia; G89.29 Other chronic pain; Z71.6 Tobacco abuse counseling; Z88.5 Allergy status to narcotic agent; Z91.041 Radiographic dye allergy status
CPT/HCPCS: 76815; 80306; 81003; 83036; 85025; 85384; 85610; 85730; 86762; 86780; 86850; 86900; 86901; 87390; 88307; 99213

== ENCOUNTER → 2018-04-20 | Outpatient (CLI) | payer OTHER ==
[2018-04-20 11:22] LABS: Anisocytosis Moderate; Basophils # (A) 0.1 k/uL (0-0.2); Basophils % (A) 1 %; Eosinophils # (A) 0.4 k/uL (0-0.7); Eosinophils % (A) 7 %; HCT 40.1 % (34.0-46.0); HGB 12.6 gm/dL (11.4-16.0); Hypochromasia Moderate; Lymphocytes # (A) 1.3 k/uL (1.0-4.8); Lymphocytes % (A) 25 %; MCH 25.1 pg (25.0-35.0); MCHC 31.3 g/dL (31.0-37.0); MCV 80.2 fL (80.0-100.0); Mean Platelet Volume 9.4; Microcytosis Slight; Monocytes # (A) 0.4 k/uL (0-1.0); Monocytes % (A) 7 %; Neutrophils # (A) 3.2 k/uL (1.3-7.7); Neutrophils % (A) 59 %; Platelet Count 183 k/uL (150-450); RDW 20.7 % (11.5-15.5); WBC 5.4 k/uL (3.8-10.6)
== END | disposition home or self-care (01) ==
LOC: LABPAT 10:40
PROVIDERS: ATTEND Obstetrics & Gynecology Obstetrics
DX: Z01.812 Encounter for preprocedural laboratory examination (principal); Z64.0 Problems related to unwanted pregnancy
CPT/HCPCS: 36415; 85025

== ENCOUNTER 2018-04-21 05:42 | Day surgery (SDC) | payer OTHER ==
--- NOTE | 2018-04-16 11:10 | P.HPOB ---
History of Present Illness H&P Date: 04/16/18 Chief Complaint: family planning, family status complete this is a very pleasant 22yo that is interested in permanent sterilization. she underwent RCS on 03/07, for 37 week IUFD, uterus was noted to have a uterine window. she desires permanent sterilization. Review of Systems Constitutional: Reports fatigue, Denies chills, Denies fever Ears, nose, mouth and throat: Denies headache Cardiovascular: Denies edema Respiratory: Denies cough, Denies dyspnea Gastrointestinal: Denies constipation, Denies diarrhea Psychiatric: Reports anxiety, Reports depression Past Medical History Past Medical History: No Reported History Additional Past Medical History / Comment(s): migraines, chronic neck pain./ History of Any Multi-Drug Resistant Organisms: None Reported Date of last positivie culture/infection: unk MDRO Source:: unk Past Surgical History: Ear Surgery, Tonsillectomy Additional Past Surgical History / Comment(s): arm tumor bx, tubes in and out of ears Past Psychological History: Anxiety, Depression Smoking Status: Current every day smoker Past Alcohol Use History: None Reported Past Drug Use History: None Reported - Past Family History Father Family Medical History: No Reported History Medications and Allergies Home Medications Medication Instructions Recorded Confirmed Type Acetaminophen Tab [Tylenol Tab] 650 mg PO ONCE PRN 03/07/18 03/07/18 History Allergies Allergy/AdvReac Type Severity Reaction Status Date / Time Iodinated Contrast- Oral and Allergy Rash/Hives Verified 06/16/17 14:43 IV Dye [Iodinated Contrast Media - IV Dye] tramadol HCl [From Ultram] Allergy Rash/Hives Verified 06/16/17 14:43 Exam Osteopathic Statement: *. No significant issues noted on an osteopathic structural exam other than those noted in the History and Physical/Consult. - OBG Physical Exam Abdomen: bowel sounds normal, no diffuse tenderness, no guarding noted Uterus: normal size Adnexa: both: normal Assessment and Plan (1) Family planning Status: Acute Code(s): Z30.09 - ENCOUNTER FOR OTH GENERAL CNSL AND ADVICE ON CONTRACEPTION SNOMED Code(s): 681172635 Plan: plan LTL with falope rings procedure reviewed with pt in detail. all questions answered and risks reviewed including but not limited to infection bleeidng damage to bladder bowel or ureteric injury
[2018-04-17 09:09] VITALS: BMI 24.4
[~2018-04-21 05:42] MED LIST: ACETAMINOPHEN IV (For NPO) 1,000 MG in EMPTY BAG 1 BAG IVPB ONE; DEXAMETHASONE SOD PHOSPHATE 10 MG/ML 1 ML VIAL IV ONE; LIDOCAINE 1% 20 ML VIAL (10MG/ML) FOR IV START INTRADERMA PRN; MIDAZOLAM 2 MG/2 ML VIAL IV PRN; ONDANSETRON 4 MG/2 ML VIAL IVP ONE; Pre Op ABX Message 1 EACH MISC MISCELLANE ONE; fentaNYL (PF) 50 MCG/ML 2 ML AMP IV PRN
[2018-04-21] MEDS: LACTATED RINGERS 1,000 ML IV SCH ×3 (06:46→13:45)
[2018-04-21] MEDS ORDERED: ROPIVACAINE 5 MG/ML 30 ML VIAL MISCELLANE ONE (07:33)
[2018-04-21] MEDS ORDERED: LIDOCAINE 1% INJ 10MG/ML (20 ML MDV) ONE (07:36)
[2018-04-21] MEDS ORDERED: ROCURONIUM BROMIDE 10 MG/ML 10 ML VIAL IV ONE (07:36)
[2018-04-21] MEDS ORDERED: GLYCOPYRROLATE 0.2 MG/ML 2 ML VIAL ONE (07:36)
[2018-04-21] MEDS ORDERED: PROPOFOL 10 MG/ML 20 ML VIAL IV ONE (07:36)
[2018-04-21] MEDS ORDERED: NEOSTIGMINE 1 MG/ML 10 ML VIAL ONE (07:36)
[2018-04-21] MEDS ORDERED: fentaNYL (PF) 50 MCG/ML 2 ML AMP ONE (07:36)
[2018-04-21] MEDS ORDERED: MIDAZOLAM 2 MG/2 ML VIAL ONE (07:36)
[2018-04-21] MEDS ORDERED: HYDROmorphone (PF) 1 MG/ML ONE (07:36)
[2018-04-21] MEDS ORDERED: SILVER NITRATE APPLICATOR 1 EACH STICK..EA. TOPICAL ONE (08:15)
[2018-04-21 08:39] VITALS: TEMP 96.9
[2018-04-21] MEDS ORDERED: PROMETHAZINE INJ 25 MG/ML 1 ML VIAL IVPB ONE ×2 (08:53→10:30)
--- NOTE | 2018-04-21 08:57 | P.OP ---
Date of Procedure: 04/21/18 Preoperative Diagnosis: Undesired fertility, family planning Postoperative Diagnosis: Same Procedure(s) Performed: Laparoscopic tubal ligation with Falope-Rings Anesthesia: MULU Surgeon: Monika Holloway Estimated Blood Loss (ml): 5 IV fluids (ml): 600 Urine output (ml): 75 Pathology: none sent Condition: stable Disposition: PACU Indications for Procedure: Family status complete Operative Findings: Significant bladder adhesions to the lower uterine segment secondary to history of 2 prior C-sections. Description of Procedure: Patient was seen in the preoperative area and informed consent was obtained obtained. She once again expressed the desire for tubal ligation and permanent sterilization. Patient was taken back to the operating suite where general anesthesia was obtained without difficulty by the anesthesia department she was then prepped and draped in the normal sterile fashion in the dorsal lithotomy position. A red rubber catheter was used to drain the bladder of clear yellow urine. An acorn uterine manipulator was advanced into the cervical canal as a means to manipulate the uterus throughout the procedure. Attention was then turned to the patient's abdomen where in the umbilical fold a small skin incision was made through this incision the Veresssolution was deemed to be in the proper position with the drop in CO2 pressure with insufflation of CO2 gas CO2 insufflation was allowed to occur. Approximately 3 L of gas were used to obtain pneumoperitoneum. At this time a 5 mm trocar and sleeve is placed through the skin incision and toward the pneumoperitoneum under direct visualization with the laparoscope in place. Afterwards the trochars removed and the above noted findings were visualized in the pelvis. Additional port site is placed right lower quadrant this is an 8 mm port placed under direct visualization. At this time the for care was opened the left fallopian tube was grasped in the usual fashion and operated according to hotel security officer's instructions. She was noted to be significantly edematous therefore a Kleppinger was used to seal the tube with monopolar cautery. Attention was then turned to the patient's right fallopian tube which was grasped with the Falope ring applicator operated according to hotel security officer's instruction a good knuckle of tube was noted along with blanching. Inspection of the fallopian tubes noted no bleeding therefore all instruments removed from the patient's abdomen. Attention was then turned to the patient's vaginal vault the acorn uterine and bladder was removed without difficulty a small amount of bleeding was noted from the single-tooth tenaculum was on the anterior lip of the cervix, therefore silvernitrate is placed and hemostasis was appreciated. All counts are correct2. patient tolerated procedure well and was taken to the recoveryroom awake and in stable condition
[2018-04-21] MEDS: IBUPROFEN IV 600 MG in SODIUM CHLORIDE 0.9% 250 ML IV ONE ×2 (11:28→13:00)
[2018-04-21 12:11] VITALS: RESP 16
[2018-04-21 12:51] VITALS: BP 123/82; PULSE 54
== END 2018-04-21 13:52 | disposition home or self-care (01) ==
LOC: OR 05:42
PROVIDERS: ATTEND Obstetrics & Gynecology Obstetrics
DX: Z30.2 Encounter for sterilization (principal); N32.89 Other specified disorders of bladder; F41.9 Anxiety disorder, unspecified; F32.9 Major depressive disorder, single episode, unspecified; G89.29 Other chronic pain; M54.2 Cervicalgia; F17.200 Nicotine dependence, unspecified, uncomplicated; Z91.041 Radiographic dye allergy status; Z88.5 Allergy status to narcotic agent; Z79.1 Long term (current) use of non-steroidal anti-inflammatories (NSAID); Z79.899 Other long term (current) drug therapy
CPT/HCPCS: 58671; 81025; J2250; J1100; J2550; J2710; J2405; J2001; J3010; J1170; J0131; J1741; J2704

== ENCOUNTER 2021-06-24 22:54 | Emergency (ER) | payer OTHER ==
[2021-06-24] MEDS ORDERED: SODIUM CHLORIDE 0.9% 1,000 ML IV STA (23:09)
[2021-06-24] MEDS ORDERED: methylPREDNISolone SOD SUCCI 125 MG/2 ML VIAL IV STA (23:16)
[2021-06-24] MEDS ORDERED: diphenhydrAMINE 50 MG/ML 1 ML VIAL IVP STA (23:16)
[2021-06-24] MEDS ORDERED: FAMOTIDINE 20 MG/2 ML VIAL IV STA (23:16)
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
[2021-06-24 23:20] VITALS: RESP 18
[2021-06-24 23:33] LABS: Basophils # (A) 0.1 k/uL (0-0.2); Basophils % (A) 1 %; Eosinophils # (A) 0.1 k/uL (0-0.7); Eosinophils % (A) 0 %; HCT 44.9 % (34.0-46.0); HGB 14.2 gm/dL (11.4-16.0); Lymphocytes % (A) 10 %; MCH 29.5 pg (25.0-35.0); MCHC 31.5 g/dL (31.0-37.0); MCV 93.5 fL (80.0-100.0); Mean Platelet Volume 8.3; Monocytes # (A) 0.4 k/uL (0-1.0); Monocytes % (A) 2 %; Neutrophils % (A) 86 %; Platelet Count 387 k/uL (150-450); RDW 13.4 % (11.5-15.5); WBC 19.7 k/uL (3.8-10.6)
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
[2021-06-25 00:07] LABS: ALT 14 U/L (4-34); AST 22 U/L (14-36); African American GFR (CKD) >90 (>60 ml/min/1.73 sqM); Albumin 4.2 g/dL (3.5-5.0); Alcohol <10 mg/dL; Alkaline Phosphatase 71 U/L (38-126); Anion Gap 6 mmol/L; Blood Urea Nitrogen 13 mg/dL (7-17); Carbon Dioxide 31 mmol/L (22-30); Chloride 104 mmol/L (98-107); Glucose 124 mg/dL (74-99); Non-African American GFR(CKD) >90 (>60 ml/min/1.73 sqM); Potassium 5.1 mmol/L (3.5-5.1); Sodium 141 mmol/L (137-145); Total Bilirubin 0.4 mg/dL (0.2-1.3); Total Protein 7.5 g/dL (6.3-8.2)
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
[2021-06-25] MEDS ORDERED: cefTRIAXone IN SWFI 1,000 MG/10 ML SYRINGE IVP STA (00:18)
[2021-06-25] MEDS ORDERED: AZITHROMYCIN 500 MG in SODIUM CHLORIDE 0.9% 250 ML IVPB STA (00:18)
[2021-06-25] MEDS ORDERED: IPRATROPIUM-ALBUTEROL 3 ML NEB INHALATION STA (00:18)
[2021-06-25 02:34] VITALS: BP 120/88; PULSE 90; TEMP 98.6
== END 2021-06-25 02:19 | disposition home or self-care (01) ==
LOC: EC 22:54
DX: S20.219A Contusion of unspecified front wall of thorax, initial encounter (principal); J18.9 Pneumonia, unspecified organism; Z88.8 Allergy status to other drugs, medicaments and biological substances; Z88.6 Allergy status to analgesic agent
CPT/HCPCS: 94640; 80053; 85025; 72125; 70450; 71260; 74177; 99284; 96365; 96361; 96375; G0480; J1200; J2930; J0456; J0696; Q9967; 80320

== ENCOUNTER 2021-09-20 17:32 | Emergency (ER) | payer OTHER ==
[2021-09-20 17:42] VITALS: RESP 16; TEMP 97.4
[2021-09-20] MEDS ORDERED: ACETAMINOPHEN TAB 325 MG TAB PO STA (17:59)
--- NOTE | 2021-09-20 18:05 | ED ---
Recheck HPI - General Chief Complaint: Recheck/Abnormal Lab/Rx Stated Complaint: Covid Exposure Time Seen by Provider: 09/20/21 17:45 Source: patient Mode of arrival: ambulatory Limitations: no limitations - History of Present Illness Initial Comments: This 18-year-old female presents to emergency department after being exposed COVID-19 5 days ago. Patient states starting 2 days ago she began having mild headache, nasal congestion, body aches and fatigue. Patient states she has been taking Tylenol Motrin which have seemed to relieve some of her symptoms. Patient denies any chest pain, shortness of breath, abdominal pain, change in bowel or bladder, change in vision, lightheadedness, dizziness. - Related Data Home Medications Medication Instructions Recorded Confirmed Ibuprofen [Motrin] 600 mg PO Q8HR PRN 04/17/18 04/21/18 Sertraline [Zoloft] 50 mg PO 1200 04/17/18 04/21/18 Previous Rx's Medication Instructions Recorded Azithromycin [Zithromax] 500 mg PO DAILY #5 tab 06/25/21 Cefdinir [Omnicef] 300 mg PO Q12HR #14 06/25/21 Allergies Allergy/AdvReac Type Severity Reaction Status Date / Time Iodinated Contrast Media Allergy Rash/Hives Verified 09/20/21 17:42 [Iodinated Contrast Media - IV Dye] tramadol HCl [From Ultram] Allergy Rash/Hives Verified 09/20/21 17:42 Review of Systems ROS Statement: Those systems with pertinent positive or pertinent negative responses have been documented in the HPI. ROS Other: All systems not noted in ROS Statement are negative. Past Medical History Past Medical History: No Reported History Additional Past Medical History / Comment(s): migraines, chronic neck pain. History of Any Multi-Drug Resistant Organisms: None Reported Date of last positivie culture/infection: unk MDRO Source:: unk Past Surgical History: Section, Ear Surgery, Tonsillectomy Additional Past Surgical History / Comment(s): arm tumor bx, tubes in and out of ears, D & C's Past Anesthesia/Blood Transfusion Reactions: No Reported Reaction Past Psychological History: Anxiety, Depression Smoking Status: Current every day smoker Past Alcohol Use History: Rare Past Drug Use History: None Reported - Past Family History Father Family Medical History: No Reported History General Exam Limitations: no limitations General appearance: alert, in no apparent distress Head exam: Present: atraumatic, normocephalic Eye exam: Present: normal appearance, EOMI ENT exam: Present: normal exam, mucous membranes moist Neck exam: Present: full ROM Respiratory exam: Present: normal lung sounds bilaterally. Absent: respiratory distress, wheezes, rales, rhonchi, stridor Cardiovascular Exam: Present: regular rate, normal rhythm, normal heart sounds. Absent: systolic murmur, diastolic murmur, rubs, gallop, clicks GI/Abdominal exam: Present: soft, normal bowel sounds. Absent: distended, tenderness, guarding, rebound, rigid Extremities exam: Present: full ROM Back exam: Absent: tenderness, CVA tenderness (R), CVA tenderness (L) Neurological exam: Present: alert, oriented X3, CN II-XII intact Psychiatric exam: Present: normal affect, normal mood Skin exam: Present: warm, dry, intact, normal color. Absent: rash Course Vital Signs 09/20/21 17:39 Temperature 97.4 F L Pulse Rate 64 Respiratory 16 Rate Blood Pressure 101/70 O2 Sat by Pulse 98 Oximetry Medical Decision Making - Medical Decision Making This 26-year-old emergency apartment with body aches, nasal congestion, and dull headache 3 days. Patient instructed follow-up with primary care provider next 1-2 days. She advised to take Tylenol Motrin as directed. Patient exposed COVID-19 5 days ago. COVID-19 test negative. Patient sent home in stable condition. Strict return precautions given. Patient verbally agreed to the plan. Discussed case with Dr. Pandey. - Lab Data Lab Results 09/20/21 Range/Units 17:59 Coronavirus (PCR) Not Detected (Not Detectd) Disposition Clinical Impression: Upper respiratory infection Disposition: HOME SELF-CARE Condition: Stable Instructions (If sedation given, give patient instructions): Upper Respiratory Infection (ED) Is patient prescribed a controlled substance at d/c from ED?: No Referrals: None,Stated [Primary Care Provider] - 1-2 days Time of Disposition: 19:14
[2021-09-20 19:30] VITALS: BP 105/78; PULSE 70
== END 2021-09-20 19:30 | disposition home or self-care (01) ==
LOC: EC 17:32
DX: J06.9 Acute upper respiratory infection, unspecified (principal); F17.200 Nicotine dependence, unspecified, uncomplicated; Z20.822 Contact with and (suspected) exposure to COVID-19; Z88.6 Allergy status to analgesic agent; Z91.041 Radiographic dye allergy status
CPT/HCPCS: 87635; 99284

== ENCOUNTER 2022-04-22 14:14 | Emergency (ER) | payer OTHER ==
[2022-04-22 14:28] VITALS: TEMP 99
[2022-04-22] MEDS ORDERED: NALOXONE 0.4 MG/ML 1 ML VIAL IVP STA ×2 (14:39→16:24)
--- NOTE | 2022-04-22 15:24 | ED ---
General Adult HPI - General Source: patient Mode of arrival: EMS Limitations: no limitations <Xiomara Henson - Last Filed: 04/22/22 16:06> <Terrell Fuller - Last Filed: 04/22/22 21:11> - General Chief complaint: Overdose Stated complaint: overdose - History of Present Illness Initial comments: 26-year-old female presents emergency Department with altered mental status. Patient using crystal meth that was apparently laced with Fentanyl at home. Family administered intranasal Narcan and patient did awaken. Patient presents to the hospital and is minimally arousable therefore cannot provide a history. (Xiomara Henson) - Related Data Home Medications Medication Instructions Recorded Confirmed Buprenorphine/Naloxone 8Mg/2Mg 1 film SL TID 04/22/22 04/22/22 [Suboxone 8-2Mg Film] Gabapentin 600 mg PO TID 04/22/22 04/22/22 Levothyroxine Sodium [Synthroid] 75 mcg PO DAILY 04/22/22 04/22/22 [place] Carbonate 900 mg PO HS 04/22/22 04/22/22 Mirtazapine [Remeron] 15 mg PO HS 04/22/22 04/22/22 SUMAtriptan succinate [Imitrex] 50 mg PO BID PRN 04/22/22 04/22/22 Sertraline [Zoloft] 200 mg PO DAILY 04/22/22 04/22/22 busPIRone HCL [Buspirone HCl] 15 mg PO TID 04/22/22 04/22/22 Allergies Allergy/AdvReac Type Severity Reaction Status Date / Time Iodinated Contrast Media Allergy Rash/Hives Verified 04/22/22 16:19 [Iodinated Contrast Media - IV Dye] tramadol HCl [From Ultram] Allergy Rash/Hives Verified 04/22/22 16:19 Review of Systems ROS Other: All systems not noted in ROS Statement are negative. <Xiomara Henson - Last Filed: 04/22/22 16:06> ROS Other: All systems not noted in ROS Statement are negative. <Terrell Fuller - Last Filed: 04/22/22 21:11> ROS Statement: Those systems with pertinent positive or pertinent negative responses have been documented in the HPI. Past Medical History Past Medical History: No Reported History Additional Past Medical History / Comment(s): migraines, chronic neck pain. History of Any Multi-Drug Resistant Organisms: None Reported Date of last positivie culture/infection: unk MDRO Source:: unk Past Surgical History: Section, Ear Surgery, Tonsillectomy Additional Past Surgical History / Comment(s): arm tumor bx, tubes in and out of ears, D & C's Past Anesthesia/Blood Transfusion Reactions: No Reported Reaction Past Psychological History: Anxiety, Depression Smoking Status: Current every day smoker Past Alcohol Use History: Rare Past Drug Use History: Methamphetamine - Past Family History Father Family Medical History: No Reported History <Xiomara Henson Last Filed: 04/22/22 16:06> General Exam Limitations: altered mental status General appearance: in no apparent distress, lethargic Head exam: Present: atraumatic, normocephalic, normal inspection Eye exam: Present: normal appearance, PERRL, EOMI. Absent: scleral icterus, conjunctival injection, periorbital swelling ENT exam: Present: normal exam Neck exam: Present: normal inspection. Absent: tenderness, meningismus, lymphadenopathy Respiratory exam: Present: normal lung sounds bilaterally. Absent: respiratory distress, wheezes, rales, rhonchi, stridor Cardiovascular Exam: Present: normal rhythm, tachycardia, normal heart sounds. Absent: systolic murmur, diastolic murmur, rubs, gallop, clicks GI/Abdominal exam: Present: soft, normal bowel sounds. Absent: distended, tenderness, guarding, rebound, rigid Neurological exam: Present: altered Skin exam: Present: warm, dry, intact, normal color. Absent: rash <Xiomara Henson - Last Filed: 04/22/22 16:06> Course Vital Signs 04/22/22 04/22/22 04/22/22 14:26 14:42 14:46 Temperature 99 F Pulse Rate 107 H Respiratory 18 18 Rate Blood Pressure 119/96 O2 Sat by Pulse 99 100 Oximetry 04/22/22 04/22/22 04/22/22 16:12 16:29 18:13 Temperature Pulse Rate 70 78 Respiratory 18 18 20 Rate Blood Pressure 121/87 128/79 O2 Sat by Pulse 96 98 Oximetry Medical Decision Making <Xiomara Henson Last Filed: 04/22/22 16:06> - Lab Data Result diagrams: 04/22/22 16:01 04/22/22 16:01 <Terrell Fuller - Last Filed: 04/22/22 21:11> - Medical Decision Making Upon arrival patient is placed into room 25. Thorough history and physical exam was performed. Patient does not arouse very well with stimulation therefore she is given 0.4 mg of Narcan with minimal response. Laboratory studies and urinalysis ordered. Currently awaiting results. Patient will be signed out to Dr. Fuller (Xiomara Henson) Patient had presented with suspected overdose responding to Narcan. Patient's required several doses to remain alert however she did not have any respiratory depression. She is observed in the emergency department for several hours without further need for Narcan. She is alert and oriented 3. She denies any suicidal thoughts or suicide attempt. She will be discharged into the care of her mother. (Terrell Fuller) - Lab Data Lab Results 04/22/22 04/22/22 04/22/22 Range/Units 16:01 16:01 16:01 WBC 5.3 (3.8-10.6) k/uL RBC 4.37 (3.80-5.40) m/uL Hgb 13.2 (11.4-16.0) gm/dL Hct 40.8 (34.0-46.0) % MCV 93.4 (80.0-100.0) fL MCH 30.3 (25.0-35.0) pg MCHC 32.4 (31.0-37.0) g/dL RDW 12.7 (11.5-15.5) % Plt Count 188 (150-450) k/uL MPV 9.8 Neutrophils % 53 % Lymphocytes % 33 % Monocytes % 6 % Eosinophils % 5 % Basophils % 1 % Neutrophils # 2.8 (1.3-7.7) k/uL Lymphocytes # 1.8 (1.0-4.8) k/uL Monocytes # 0.3 (0-1.0) k/uL Eosinophils # 0.2 (0-0.7) k/uL Basophils # 0.1 (0-0.2) k/uL Sodium (137-145) mmol/L Potassium (3.5-5.1) mmol/L Chloride (98-107) mmol/L Carbon Dioxide (22-30) mmol/L Anion Gap mmol/L BUN (7-17) mg/dL Creatinine (0.52-1.04) mg/dL Est GFR (CKD-EPI)AfAm (>60 ml/min/1.73 sqM) Est GFR (CKD-EPI)NonAf (>60 ml/min/1.73 sqM) Glucose (74-99) mg/dL Calcium (8.4-10.2) mg/dL Total Bilirubin (0.2-1.3) mg/dL AST (14-36) U/L ALT (4-34) U/L Alkaline Phosphatase (38-126) U/L Total Protein (6.3-8.2) g/dL Albumin (3.5-5.0) g/dL Urine HCG, Qual Not Detected (Not Detectd) Salicylates mg/dL Urine Opiates Screen Not Detected (NotDetected) Ur Oxycodone Screen Not Detected (NotDetected) Urine Methadone Screen Not Detected (NotDetected) Ur Propoxyphene Screen Not Detected (NotDetected) Acetaminophen ug/mL Ur Barbiturates Screen Not Detected (NotDetected) U Tricyclic Antidepress Not Detected (NotDetected) Ur Phencyclidine Scrn Not Detected (NotDetected) Ur Amphetamines Screen Detected H (NotDetected) U Methamphetamines Scrn Detected H (NotDetected) U Benzodiazepines Scrn Not Detected (NotDetected) Urine Cocaine Screen Not Detected (NotDetected) U Marijuana (THC) Screen Not Detected (NotDetected) Serum Alcohol mg/dL 04/22/22 Range/Units 16:01 WBC (3.8-10.6) k/uL RBC (3.80-5.40) m/uL Hgb (11.4-16.0) gm/dL Hct (34.0-46.0) % MCV (80.0-100.0) fL MCH (25.0-35.0) pg MCHC (31.0-37.0) g/dL RDW (11.5-15.5) % Plt Count (150-450) k/uL MPV Neutrophils % % Lymphocytes % % Monocytes % % Eosinophils % % Basophils % % Neutrophils # (1.3-7.7) k/uL Lymphocytes # (1.0-4.8) k/uL Monocytes # (0-1.0) k/uL Eosinophils # (0-0.7) k/uL Basophils # (0-0.2) k/uL Sodium 140 (137-145) mmol/L Potassium 4.2 (3.5-5.1) mmol/L Chloride 105 (98-107) mmol/L Carbon Dioxide 26 (22-30) mmol/L Anion Gap 9 mmol/L BUN 10 (7-17) mg/dL Creatinine 0.58 (0.52-1.04) mg/dL Est GFR (CKD-EPI)AfAm >90 (>60 ml/min/1.73 sqM) Est GFR (CKD-EPI)NonAf >90 (>60 ml/min/1.73 sqM) Glucose 92 (74-99) mg/dL Calcium 9.0 (8.4-10.2) mg/dL Total Bilirubin 0.4 (0.2-1.3) mg/dL AST 27 (14-36) U/L ALT 12 (4-34) U/L Alkaline Phosphatase 40 (38-126) U/L Total Protein 6.4 (6.3-8.2) g/dL Albumin 4.2 (3.5-5.0) g/dL Urine HCG, Qual (Not Detectd) Salicylates <1.0 mg/dL Urine Opiates Screen (NotDetected) Ur Oxycodone Screen (NotDetected) Urine Methadone Screen (NotDetected) Ur Propoxyphene Screen (NotDetected) Acetaminophen <10.0 ug/mL Ur Barbiturates Screen (NotDetected) U Tricyclic Antidepress (NotDetected) Ur Phencyclidine Scrn (NotDetected) Ur Amphetamines Screen (NotDetected) U Methamphetamines Scrn (NotDetected) U Benzodiazepines Scrn (NotDetected) Urine Cocaine Screen (NotDetected) U Marijuana (THC) Screen (NotDetected) Serum Alcohol <10 mg/dL Disposition <Xiomara Henson - Last Filed: 04/22/22 16:06> Is patient prescribed a controlled substance at d/c from ED?: No Time of Disposition: 21:11 <Terrell Fuller - Last Filed: 04/22/22 21:11> Clinical Impression: Accidental drug overdose Disposition: HOME SELF-CARE Condition: Fair Instructions (If sedation given, give patient instructions): Adult Overdose (ED) Referrals: None,Stated [Primary Care Provider] - 1-2 days
[2022-04-22] MEDS ORDERED: SODIUM CHLORIDE 0.9% 1,000 ML IV STA (15:48)
[2022-04-22 16:19] LABS: Basophils # (A) 0.1 k/uL (0-0.2); Basophils % (A) 1 %; Eosinophils # (A) 0.2 k/uL (0-0.7); Eosinophils % (A) 5 %; HCT 40.8 % (34.0-46.0); HGB 13.2 gm/dL (11.4-16.0); Lymphocytes # (A) 1.8 k/uL (1.0-4.8); Lymphocytes % (A) 33 %; MCH 30.3 pg (25.0-35.0); MCHC 32.4 g/dL (31.0-37.0); MCV 93.4 fL (80.0-100.0); Mean Platelet Volume 9.8; Monocytes # (A) 0.3 k/uL (0-1.0); Monocytes % (A) 6 %; Neutrophils # (A) 2.8 k/uL (1.3-7.7); Neutrophils % (A) 53 %; Platelet Count 188 k/uL (150-450); RBC 4.37 m/uL (3.80-5.40); RDW 12.7 % (11.5-15.5); WBC 5.3 k/uL (3.8-10.6)
[2022-04-22 16:29] LABS: ALT 12 U/L (4-34); AST 27 U/L (14-36); Acetaminophen <10.0 ug/mL; African American GFR (CKD) >90 (>60 ml/min/1.73 sqM); Albumin 4.2 g/dL (3.5-5.0); Alcohol <10 mg/dL; Alkaline Phosphatase 40 U/L (38-126); Anion Gap 9 mmol/L; Blood Urea Nitrogen 10 mg/dL (7-17); Carbon Dioxide 26 mmol/L (22-30); Chloride 105 mmol/L (98-107); Glucose 92 mg/dL (74-99); Non-African American GFR(CKD) >90 (>60 ml/min/1.73 sqM); Potassium 4.2 mmol/L (3.5-5.1); Salicylate <1.0 mg/dL; Sodium 140 mmol/L (137-145); Total Bilirubin 0.4 mg/dL (0.2-1.3); Total Protein 6.4 g/dL (6.3-8.2)
[2022-04-22 17:03] LABS: Amphetamine Screen,Urine Detected (NotDetected); Barbiturate Screen,Urine Not Detected (NotDetected); Benzodiazepines Screen,Urine Not Detected (NotDetected); Cocaine Screen,Urine Not Detected (NotDetected); Methadone Screen, Urine Not Detected (NotDetected); Opiate Screen,Urine Not Detected (NotDetected); Oxycodone Screen, Urine Not Detected (NotDetected); Phencyclidine Screen,Urine Not Detected (NotDetected); Tricyclic Antidepressant,Urine Not Detected (NotDetected); Urn Cannabinoid Scrn Not Detected (NotDetected)
[2022-04-22 21:26] VITALS: BP 118/74; PULSE 92; RESP 18
== END 2022-04-22 21:29 | disposition home or self-care (01) ==
LOC: EC 14:14
DX: T50.7X1A Poisoning by analeptics and opioid receptor antagonists, accidental (unintentional), initial encounter (principal); F41.9 Anxiety disorder, unspecified; F32.A Depression, unspecified; F17.200 Nicotine dependence, unspecified, uncomplicated; Z91.041 Radiographic dye allergy status; Z88.5 Allergy status to narcotic agent; Z79.899 Other long term (current) drug therapy
CPT/HCPCS: 36415; 80053; 85025; 81025; 80306; 80143; 80179; 99285; 96374; 96375; G0480; J2310; 80320

== ENCOUNTER → 2022-11-29 | Outpatient (CLI) | payer OTHER ==
[2022-11-30 00:02] LABS: Urine Alcohol Negative (Negative); Urine Barbiturate Negative (Negative); Urine Cocaine Negative (Negative); Urine Methadone Negative (Negative); Urine Opiates Negative (Negative); Urine Phencyclidine Negative (Negative)
== END | disposition home or self-care (01) ==
LOC: LABWHC1 14:29
PROVIDERS: ATTEND Family Medicine
DX: F11.20 Opioid dependence, uncomplicated (principal)
CPT/HCPCS: 80306

== ENCOUNTER 2023-04-20 20:27 | Emergency (ER) | payer SELFPAY ==
[2023-04-20 20:34] VITALS: TEMP 98.6
[2023-04-20] MEDS ORDERED: SODIUM CHLORIDE 0.9% 1,000 ML IV STA (20:46)
[2023-04-20] MEDS ORDERED: KETOROLAC 15 MG/ML 1 ML VIAL IVP STA (20:47)
[2023-04-20 21:17] LABS: Basophils % (A) 0 %; Eosinophils % (A) 0 %; HCT 42.7 % (34.0-46.0); HGB 14.4 gm/dL (11.4-16.0); Lymphocytes # (A) 1.8 k/uL (1.0-4.8); Lymphocytes % (A) 16 %; MCH 31.8 pg (25.0-35.0); MCHC 33.8 g/dL (31.0-37.0); Mean Platelet Volume 9.9; Monocytes # (A) 0.3 k/uL (0-1.0); Monocytes % (A) 3 %; Neutrophils # (A) 8.7 k/uL (1.3-7.7); Neutrophils % (A) 79 %; Platelet Count 182 k/uL (150-450); RBC 4.55 m/uL (3.80-5.40); RDW 12.8 % (11.5-15.5); WBC 10.9 k/uL (3.8-10.6)
--- NOTE | 2023-04-20 21:19 | ED ---
General Adult HPI - General Chief complaint: Shortness of Breath Stated complaint: +covid,sob Time Seen by Provider: 04/20/23 20:40 Source: patient Mode of arrival: ambulatory Limitations: no limitations - History of Present Illness Initial comments: 27-year-old female presenting with chief complaint of dyspnea. Patient tested positive for Covid 5 days ago. She states that over the last 5 days she felt relatively well she had mild congestion and cough. She states that today she is experiencing burning chest pain that is worse with deep breathing and shortness of breath. She minutes to generalized body aches and fatigue. No lower extremity swelling. No palpitations. No nausea, vomiting, abdominal pain. No vision or hearing changes. No numbness or tingling. - Related Data Home Medications Medication Instructions Recorded Confirmed Buprenorphine/Naloxone 8Mg/2Mg 1 film SL TID 04/22/22 04/22/22 [Suboxone 8-2Mg Film] Gabapentin 600 mg PO TID 04/22/22 04/22/22 Levothyroxine Sodium [Synthroid] 75 mcg PO DAILY 04/22/22 04/22/22 [place] Carbonate 900 mg PO HS 04/22/22 04/22/22 Mirtazapine [Remeron] 15 mg PO HS 04/22/22 04/22/22 SUMAtriptan succinate [Imitrex] 50 mg PO BID PRN 04/22/22 04/22/22 Sertraline [Zoloft] 200 mg PO DAILY 04/22/22 04/22/22 busPIRone HCL [Buspirone HCl] 15 mg PO TID 04/22/22 04/22/22 Allergies Allergy/AdvReac Type Severity Reaction Status Date / Time Iodinated Contrast Media Allergy Rash/Hives Verified 04/20/23 20:34 [Iodinated Contrast Media - IV Dye] tramadol HCl [From Ultram] Allergy Rash/Hives Verified 04/20/23 20:34 Review of Systems ROS Statement: Those systems with pertinent positive or pertinent negative responses have been documented in the HPI. ROS Other: All systems not noted in ROS Statement are negative. Past Medical History Past Medical History: No Reported History Additional Past Medical History / Comment(s): migraines, chronic neck pain., fibromyalgia History of Any Multi-Drug Resistant Organisms: None Reported Date of last positivie culture/infection: unk MDRO Source:: unk Past Surgical History: Section, Ear Surgery, Tonsillectomy Additional Past Surgical History / Comment(s): arm tumor bx, tubes in and out of ears, D & C's, tubal ligation Past Anesthesia/Blood Transfusion Reactions: No Reported Reaction Past Psychological History: Anxiety, Depression Smoking Status: Current every day smoker, Vaper Past Alcohol Use History: None Reported Past Drug Use History: Methamphetamine - Past Family History Father Family Medical History: No Reported History General Exam Limitations: no limitations General appearance: alert, in no apparent distress Head exam: Present: atraumatic, normocephalic, normal inspection Eye exam: Present: normal appearance, EOMI Neck exam: Present: normal inspection, full ROM Respiratory exam: Present: normal lung sounds bilaterally. Absent: respiratory distress, wheezes, rales, rhonchi, stridor Cardiovascular Exam: Present: regular rate, normal rhythm, normal heart sounds. Absent: systolic murmur, diastolic murmur, rubs, gallop, clicks Extremities exam: Absent: pedal edema Neurological exam: Present: alert, oriented X3, CN II-XII intact Psychiatric exam: Present: normal affect, normal mood Skin exam: Present: warm, dry, intact, normal color. Absent: rash Course Vital Signs 04/20/23 04/20/23 04/20/23 20:29 22:19 23:43 Temperature 98.6 F Pulse Rate 127 H 90 89 Respiratory 20 19 Rate Blood Pressure 120/81 104/72 O2 Sat by Pulse 99 100 Oximetry EKG Findings - EKG Comments: EKG Findings:: Sinus rhythm. Ventricular rate 91. VA interval 140. QRS 85. QT 335. QTc 384. No ST deviation. T wave inversion in lead aVL Medical Decision Making - Medical Decision Making Was pt. sent in by a medical professional or institution (, PA, WIRE COILER, urgent care, hospital, or [facility]...) When possible be specific @ -No Did you speak to anyone other than the patient for history (EMS, parent, family, police, friend...)? What history was obtained from this source @ -No Did you review nursing and triage notes (agree or disagree)? Why? @ -I reviewed and agree with nursing and triage notes Were old charts reviewed (outside hosp., previous admission, EMS record, old EKG, old radiological studies, urgent care reports/EKG's, [facility] records)? Report findings @ -No old charts were reviewed Differential Diagnosis (chest pain, altered mental status, abdominal pain women, abdominal pain men, vaginal bleeding, weakness, fever, dyspnea, syncope, headache, dizziness, GI bleed, back pain, seizure, CVA, palpatations, mental health, musculoskeletal)? @ -MDM Differential Dyspnea: Coronary syndrome, arrhythmia, tamponade, asthma, COPD, pulmonary embolism, pneumonia, pneumothorax, pulmonary effusion, anaphylaxis, diabetic ketoacidosis, flailed chest, pulmonary contusion, diaphragmatic rupture, anemia, neuromuscular this is not meant to be an all-inclusive list. EKG interpreted by me (3pts min.). @ -Sinus rhythm ventricular rate 91. VA interval 140. QRS 85. QT 335. QTc 384. No ST deviation. X-rays interpreted by me (1pt min.). @ -Chest x-ray shows no acute process. CT interpreted by me (1pt min.). @ -None done U/S interpreted by me (1pt. min.). @ -None done What testing was considered but not performed or refused? (CT, X-rays, U/S, labs)? Why? @ -None What meds were considered but not given or refused? Why? @ -None Did you discuss the management of the patient with other professionals (professionals i.e. , PA, WIRE COILER, lab, RT, psych nurse, social service coordinator, air bag curer, teacher, disability insurance hearing officer, case sealer)? Give summary @ -No Was smoking cessation discussed for >3mins.? @ -No Was critical care preformed (if so, how long)? @ -No Were there social determinants of health that impacted care today? How? (Homelessness, low income, unemployed, alcoholism, drug addiction, transportation, low edu. Level, literacy, decrease access to med. care, skilled nursing, rehab)? @ -No Was there de-escalation of care discussed even if they declined (Discuss DNR or withdrawal of care, Hospice)? DNR status @ -No What co-morbidities impacted this encounter? (DM, HTN, Smoking, COPD, CAD, Cancer, CVA, ARF, Chemo, Hep., AIDS, mental health diagnosis, sleep apnea, morbid obesity)? @ -None Was patient admitted / discharged? Hospital course, mention meds given and route, prescriptions, significant lab abnormalities, going to OR and other pertinent info. @ -27-year-old female presenting with chief complaint of shortness of breath. She was diagnosed with Covid 5 days ago. On physical examination there is no lower history swelling and heart and lungs are clear to auscultation. Patient is tachycardic upon arrival. WBC 10.9. Negative d-dimer and troponin. Chest x-ray shows no acute process. EKG shows sinus rhythm with no ischemic changes. On reassessment patient is resting comfortably showing no signs of distress. She is educated on today's findings and on management of Covid at home. Follow- up with PCP. Report back to ER with any new or worsening symptoms. Discussed return parameters and answered all questions. Patient conveyed verbal understanding and agreed to the plan. I discussed this case in detail with my attending Dr. Busch Undiagnosed new problem with uncertain prognosis? @ -No Drug Therapy requiring intensive monitoring for toxicity (Heparin, Nitro, Insulin, Cardizem)? @ -No Were any procedures done? @ -No Diagnosis/symptom? @ -Covid Acute, or Chronic, or Acute on Chronic? @ -Acute Uncomplicated (without systemic symptoms) or Complicated (systemic symptoms)? @ -Uncomplicated Side effects of treatment? @ -No Exacerbation, Progression, or Severe Exacerbation? @ -No Poses a threat to life or bodily function? How? (Chest pain, USA, MS, pneumonia, PE, COPD, DKA, ARF, appy, cholecystitis, CVA, Diverticulitis, Homicidal, Suicidal, threat to staff... and all critical care pts) @ -No - Lab Data Result diagrams: 04/20/23 21:03 04/20/23 21:03 Lab Results 04/20/23 04/20/23 04/20/23 Range/Units 21:03 21:03 21:03 WBC 10.9 H (3.8-10.6) k/uL RBC 4.55 (3.80-5.40) m/uL Hgb 14.4 (11.4-16.0) gm/dL Hct 42.7 (34.0-46.0) % MCV 94.0 (80.0-100.0) fL MCH 31.8 (25.0-35.0) pg MCHC 33.8 (31.0-37.0) g/dL RDW 12.8 (11.5-15.5) % Plt Count 182 (150-450) k/uL MPV 9.9 Neutrophils % 79 % Lymphocytes % 16 % Monocytes % 3 % Eosinophils % 0 % Basophils % 0 % Neutrophils # 8.7 H (1.3-7.7) k/uL Lymphocytes # 1.8 (1.0-4.8) k/uL Monocytes # 0.3 (0-1.0) k/uL Eosinophils # 0.0 (0-0.7) k/uL Basophils # 0.0 (0-0.2) k/uL PT 10.6 (9.0-12.0) sec INR 1.0 (<1.2) APTT 23.6 (22.0-30.0) sec D-Dimer 0.29 (<0.60) mg/L FEU Sodium 138 (137-145) mmol/L Potassium 4.2 (3.5-5.1) mmol/L Chloride 104 (98-107) mmol/L Carbon Dioxide 26 (22-30) mmol/L Anion Gap 8 mmol/L BUN 12 (7-17) mg/dL Creatinine 0.58 (0.52-1.04) mg/dL Est GFR (CKD-EPI)AfAm >90 (>60 ml/min/1.73 sqM) Est GFR (CKD-EPI)NonAf >90 (>60 ml/min/1.73 sqM) Glucose 91 (74-99) mg/dL Calcium 9.1 (8.4-10.2) mg/dL Total Bilirubin 0.5 (0.2-1.3) mg/dL AST 30 (14-36) U/L ALT 19 (4-34) U/L Alkaline Phosphatase 46 (38-126) U/L Troponin I (0.000-0.034) ng/mL Total Protein 7.2 (6.3-8.2) g/dL Albumin 4.6 (3.5-5.0) g/dL 04/20/23 Range/Units 21:03 WBC (3.8-10.6) k/uL RBC (3.80-5.40) m/uL Hgb (11.4-16.0) gm/dL Hct (34.0-46.0) % MCV (80.0-100.0) fL MCH (25.0-35.0) pg MCHC (31.0-37.0) g/dL RDW (11.5-15.5) % Plt Count (150-450) k/uL MPV Neutrophils % % Lymphocytes % % Monocytes % % Eosinophils % % Basophils % % Neutrophils # (1.3-7.7) k/uL Lymphocytes # (1.0-4.8) k/uL Monocytes # (0-1.0) k/uL Eosinophils # (0-0.7) k/uL Basophils # (0-0.2) k/uL PT (9.0-12.0) sec INR (<1.2) APTT (22.0-30.0) sec D-Dimer (<0.60) mg/L FEU Sodium (137-145) mmol/L Potassium (3.5-5.1) mmol/L Chloride (98-107) mmol/L Carbon Dioxide (22-30) mmol/L Anion Gap mmol/L BUN (7-17) mg/dL Creatinine (0.52-1.04) mg/dL Est GFR (CKD-EPI)AfAm (>60 ml/min/1.73 sqM) Est GFR (CKD-EPI)NonAf (>60 ml/min/1.73 sqM) Glucose (74-99) mg/dL Calcium (8.4-10.2) mg/dL Total Bilirubin (0.2-1.3) mg/dL AST (14-36) U/L ALT (4-34) U/L Alkaline Phosphatase (38-126) U/L Troponin I <0.012 (0.000-0.034) ng/mL Total Protein (6.3-8.2) g/dL Albumin (3.5-5.0) g/dL Disposition Clinical Impression: COVID Disposition: HOME SELF-CARE Condition: Good Instructions (If sedation given, give patient instructions): COVID-19 (Coronavirus Disease 2019) (ED) Additional Instructions: Follow-up with PCP. Report back to ER with any new or worsening symptoms. Quarantine until symptoms have mostly resolved. Take Motrin and Tylenol seated for any fever or pain control. stay well-hydrated and get plenty of rest. Is patient prescribed a controlled substance at d/c from ED?: No Referrals: Liz Ashby MD [Primary Care Provider] - 1-2 days Time of Disposition: 23:04
--- NOTE | 2023-04-20 21:21 | XR ---
EXAMINATION TYPE: XR chest 2V DATE OF EXAM: 04/20/2023 9:16 PM COMPARISON: Chest radiographs from 05/18/2011 TECHNIQUE: XR chest 2V Frontal and lateral views of the chest. CLINICAL INDICATION:Female, 27 years old with history of difficulty breathing; FINDINGS: Lungs/Pleura: There is no evidence of pleural effusion, focal consolidation, or pneumothorax. Pulmonary vascularity: Unremarkable. Heart/mediastinum: Cardiomediastinal silhouette is unremarkable. Musculoskeletal: No acute osseous pathology. IMPRESSION: No acute cardiopulmonary disease/process.
[2023-04-20 21:38] LABS: ALT 19 U/L (4-34); AST 30 U/L (14-36); African American GFR (CKD) >90 (>60 ml/min/1.73 sqM); Albumin 4.6 g/dL (3.5-5.0); Alkaline Phosphatase 46 U/L (38-126); Blood Urea Nitrogen 12 mg/dL (7-17); Calcium 9.1 mg/dL (8.4-10.2); Carbon Dioxide 26 mmol/L (22-30); Glucose 91 mg/dL (74-99); Non-African American GFR(CKD) >90 (>60 ml/min/1.73 sqM); Total Bilirubin 0.5 mg/dL (0.2-1.3); Total Protein 7.2 g/dL (6.3-8.2)
[2023-04-20 21:39] LABS: Partial Thromboplastin Time 23.6 sec (22.0-30.0); Prothrombin Time 10.6 sec (9.0-12.0)
[2023-04-20 22:00] LABS: Anion Gap 8 mmol/L; Chloride 104 mmol/L (98-107); Potassium 4.2 mmol/L (3.5-5.1); Sodium 138 mmol/L (137-145)
[2023-04-20 23:44] VITALS: BP 104/72; PULSE 89; RESP 19
== END 2023-04-21 00:01 | disposition home or self-care (01) ==
LOC: EC 20:27
DX: U07.1 COVID-19 (principal); F41.9 Anxiety disorder, unspecified; F32.A Depression, unspecified; F17.290 Nicotine dependence, other tobacco product, uncomplicated; F15.90 Other stimulant use, unspecified, uncomplicated; Z79.899 Other long term (current) drug therapy; Z91.041 Radiographic dye allergy status; Z88.5 Allergy status to narcotic agent
CPT/HCPCS: 36415; 93005; 85379; 80053; 84484; 85025; 85610; 85730; 71046; 99285; 96374; 96361; J1885

== ENCOUNTER 2023-06-25 14:09 | Emergency (ER) | payer OTHER ==
[2023-06-25 14:33] VITALS: TEMP 98.2
--- NOTE | 2023-06-25 16:23 | ED ---
Psych HPI - General Chief Complaint: Psychiatric Symptoms Stated Complaint: Suicidal Time Seen by Provider: 06/25/23 15:44 Source: patient, RN notes reviewed, old records reviewed Mode of arrival: ambulatory Limitations: no limitations - History of Present Illness Initial Comments: This is a 28-year-old female ER today. She presents in her evaluation for suicidal thoughts. Patient presents with active thoughts of committing suicide. Patient does feel like she has a plan of committing carrying out to the side. MD Complaint: suicidal ideation -: hour(s) Associated Psychiatric Symptoms: depression, suicidal ideation History of same: Yes Quality: constant, getting worse Improves With: none Worsens With: none Context: significant life stressor Associated Symptoms: denies other symptoms Treatments Prior to Arrival: placed on mental health hold If Self Harm: admits thoughts of self harm - Related Data Home Medications Medication Instructions Recorded Confirmed No Known Home Medications 06/25/23 06/25/23 Allergies Allergy/AdvReac Type Severity Reaction Status Date / Time Iodinated Contrast Media Allergy Rash/Hives Verified 06/25/23 18:15 [Iodinated Contrast Media - IV Dye] tramadol HCl [From Ultram] Allergy Rash/Hives Verified 06/25/23 18:15 Review of Systems ROS Statement: Those systems with pertinent positive or pertinent negative responses have been documented in the HPI. ROS Other: All systems not noted in ROS Statement are negative. Past Medical History Past Medical History: No Reported History Additional Past Medical History / Comment(s): migraines, chronic neck pain., fibromyalgia History of Any Multi-Drug Resistant Organisms: None Reported Date of last positivie culture/infection: unk MDRO Source:: unk Past Surgical History: Section, Ear Surgery, Tonsillectomy Additional Past Surgical History / Comment(s): arm tumor bx, tubes in and out of ears, D & C's, tubal ligation Past Anesthesia/Blood Transfusion Reactions: No Reported Reaction Past Psychological History: Anxiety, Depression Smoking Status: Current every day smoker, Vaper Past Alcohol Use History: None Reported Past Drug Use History: Methamphetamine - Past Family History Father Family Medical History: No Reported History General Exam Limitations: no limitations General appearance: alert, in no apparent distress Head exam: Present: atraumatic, normocephalic, normal inspection Eye exam: Present: normal appearance, PERRL, EOMI. Absent: scleral icterus, conjunctival injection, periorbital swelling ENT exam: Present: normal exam, mucous membranes moist Neck exam: Present: normal inspection. Absent: tenderness, meningismus, lymphadenopathy Respiratory exam: Present: normal lung sounds bilaterally. Absent: respiratory distress, wheezes, rales, rhonchi, stridor Cardiovascular Exam: Present: regular rate, normal rhythm, normal heart sounds. Absent: systolic murmur, diastolic murmur, rubs, gallop, clicks GI/Abdominal exam: Present: soft, normal bowel sounds. Absent: distended, tenderness, guarding, rebound, rigid Extremities exam: Present: normal inspection, full ROM, normal capillary refill. Absent: tenderness, pedal edema, joint swelling, calf tenderness Back exam: Present: normal inspection Neurological exam: Present: alert, oriented X3, CN II-XII intact Psychiatric exam: Present: normal affect, normal mood Skin exam: Present: warm, dry, intact, normal color. Absent: rash Course Vital Signs 06/25/23 06/26/23 14:29 01:08 Temperature 98.2 F Pulse Rate 103 H 76 Respiratory 16 18 Rate Blood Pressure 103/74 108/71 O2 Sat by Pulse 98 100 Oximetry - Reevaluation(s) Reevaluation #1: 06/25/23 17:26 Medical records reviewed Reevaluation #2: 06/25/23 17:26 Medical clear for psychiatric evaluation Medical Decision Making - Medical Decision Making 28 female will be transferred for inpatient psychiatric evaluation and treatment - Lab Data Result diagrams: 06/25/23 18:27 06/25/23 18:27 Lab Results 06/25/23 06/25/23 06/25/23 Range/Units 18:27 18:27 18:27 WBC 7.9 (3.8-10.6) k/uL RBC 4.25 (3.80-5.40) m/uL Hgb 13.2 (11.4-16.0) gm/dL Hct 39.0 (34.0-46.0) % MCV 91.7 (80.0-100.0) fL MCH 31.1 (25.0-35.0) pg MCHC 33.9 (31.0-37.0) g/dL RDW 12.8 (11.5-15.5) % Plt Count 206 (150-450) k/uL MPV 10.4 Neutrophils % 77 % Lymphocytes % 19 % Monocytes % 3 % Eosinophils % 0 % Basophils % 0 % Neutrophils # 6.1 (1.3-7.7) k/uL Lymphocytes # 1.5 (1.0-4.8) k/uL Monocytes # 0.3 (0-1.0) k/uL Eosinophils # 0.0 (0-0.7) k/uL Basophils # 0.0 (0-0.2) k/uL Sodium (137-145) mmol/L Potassium (3.5-5.1) mmol/L Chloride (98-107) mmol/L Carbon Dioxide (22-30) mmol/L Anion Gap mmol/L BUN (7-17) mg/dL Creatinine (0.52-1.04) mg/dL Est GFR (CKD-EPI)AfAm (>60 ml/min/1.73 sqM) Est GFR (CKD-EPI)NonAf (>60 ml/min/1.73 sqM) Glucose (74-99) mg/dL Calcium (8.4-10.2) mg/dL Total Bilirubin (0.2-1.3) mg/dL AST (14-36) U/L ALT (4-34) U/L Alkaline Phosphatase (38-126) U/L Total Protein (6.3-8.2) g/dL Albumin (3.5-5.0) g/dL Urine Color Light Ken[place] Urine Appearance Cloudy H (Clear) Urine pH 6.0 (5.0-8.0) Ur Specific [place] >1.030 (1.001-1.035) Urine Protein 1+ (Negative) Urine Glucose (UA) Negative (Negative) Urine Ketones 3+ H (Negative) Urine Blood 2 (Negative) Urine Nitrite Negative (Negative) Urine Bilirubin Negative (Negative) Urine Urobilinogen 2.0 (<2.0) mg/dL Ur Leukocyte Esterase Negative (Negative) Urine RBC 1 (0-5) /hpf Urine WBC 3 (0-5) /hpf Ur Squamous Epith Cells 5 H (0-4) /hpf Amorphous Sediment Rare H (None) /hpf Urine Mucus Many H (None) /hpf Urine HCG, Qual Not Detected (Not Detectd) Urine Opiates Screen (NotDetected) Ur Oxycodone Screen (NotDetected) Urine Methadone Screen (NotDetected) Ur Propoxyphene Screen (NotDetected) Ur Barbiturates Screen (NotDetected) U Tricyclic Antidepress (NotDetected) Ur Phencyclidine Scrn (NotDetected) Ur Amphetamines Screen (NotDetected) U Methamphetamines Scrn (NotDetected) U Benzodiazepines Scrn (NotDetected) Urine Cocaine Screen (NotDetected) U Marijuana (THC) Screen (NotDetected) Coronavirus (PCR) (Not Detectd) 06/25/23 06/25/23 06/25/23 Range/Units 18:27 18:27 18:27 WBC (3.8-10.6) k/uL RBC (3.80-5.40) m/uL Hgb (11.4-16.0) gm/dL Hct (34.0-46.0) % MCV (80.0-100.0) fL MCH (25.0-35.0) pg MCHC (31.0-37.0) g/dL RDW (11.5-15.5) % Plt Count (150-450) k/uL MPV Neutrophils % % Lymphocytes % % Monocytes % % Eosinophils % % Basophils % % Neutrophils # (1.3-7.7) k/uL Lymphocytes # (1.0-4.8) k/uL Monocytes # (0-1.0) k/uL Eosinophils # (0-0.7) k/uL Basophils # (0-0.2) k/uL Sodium 139 (137-145) mmol/L Potassium 3.7 (3.5-5.1) mmol/L Chloride 101 (98-107) mmol/L Carbon Dioxide 29 (22-30) mmol/L Anion Gap 9 mmol/L BUN 16 (7-17) mg/dL Creatinine 0.57 (0.52-1.04) mg/dL Est GFR (CKD-EPI)AfAm >90 (>60 ml/min/1.73 sqM) Est GFR (CKD-EPI)NonAf >90 (>60 ml/min/1.73 sqM) Glucose 100 H (74-99) mg/dL Calcium 8.9 (8.4-10.2) mg/dL Total Bilirubin 0.5 (0.2-1.3) mg/dL AST 24 (14-36) U/L ALT 17 (4-34) U/L Alkaline Phosphatase 40 (38-126) U/L Total Protein 6.3 (6.3-8.2) g/dL Albumin 4.0 (3.5-5.0) g/dL Urine Color Urine Appearance (Clear) Urine pH (5.0-8.0) Ur Specific [place] (1.001-1.035) Urine Protein (Negative) Urine Glucose (UA) (Negative) Urine Ketones (Negative) Urine Blood (Negative) Urine Nitrite (Negative) Urine Bilirubin (Negative) Urine Urobilinogen (<2.0) mg/dL Ur Leukocyte Esterase (Negative) Urine RBC (0-5) /hpf Urine WBC (0-5) /hpf Ur Squamous Epith Cells (0-4) /hpf Amorphous Sediment (None) /hpf Urine Mucus (None) /hpf Urine HCG, Qual (Not Detectd) Urine Opiates Screen Not Detected (NotDetected) Ur Oxycodone Screen Not Detected (NotDetected) Urine Methadone Screen Not Detected (NotDetected) Ur Propoxyphene Screen Not Detected (NotDetected) Ur Barbiturates Screen Not Detected (NotDetected) U Tricyclic Antidepress Not Detected (NotDetected) Ur Phencyclidine Scrn Not Detected (NotDetected) Ur Amphetamines Screen Detected H (NotDetected) U Methamphetamines Scrn Detected H (NotDetected) U Benzodiazepines Scrn Not Detected (NotDetected) Urine Cocaine Screen Not Detected (NotDetected) U Marijuana (THC) Screen Not Detected (NotDetected) Coronavirus (PCR) Not Detected (Not Detectd) Disposition Clinical Impression: Suicidal ideation, Depression, Acute anxiety, Adjustment reaction of adult life Disposition: TRANSFER TO PSYCH HOSP/UNIT Condition: Fair Is patient prescribed a controlled substance at d/c from ED?: No Referrals: Liz Ashby MD [Primary Care Provider] - 1-2 days
[2023-06-25 18:46] LABS: Basophils % (A) 0 %; Eosinophils % (A) 0 %; HGB 13.2 gm/dL (11.4-16.0); Lymphocytes # (A) 1.5 k/uL (1.0-4.8); Lymphocytes % (A) 19 %; MCH 31.1 pg (25.0-35.0); MCHC 33.9 g/dL (31.0-37.0); MCV 91.7 fL (80.0-100.0); Mean Platelet Volume 10.4; Monocytes # (A) 0.3 k/uL (0-1.0); Monocytes % (A) 3 %; Neutrophils # (A) 6.1 k/uL (1.3-7.7); Neutrophils % (A) 77 %; Platelet Count 206 k/uL (150-450); RBC 4.25 m/uL (3.80-5.40); RDW 12.8 % (11.5-15.5); WBC 7.9 k/uL (3.8-10.6)
[2023-06-25 19:12] LABS: Appearance,Urine Cloudy (Clear); Bilirubin,Urine Negative (Negative); Blood,Urine 2 (Negative); Color,Urine Light Orange; Glucose,Urine (UA) Negative (Negative); Ketones,Urine 3+ (Negative); Protein,Urine 1+ (Negative); Specific Gravity,Urine >1.030 (1.001-1.035)
[2023-06-25 19:13] LABS: Leukocyte Esterase,Urine Negative (Negative); Nitrite,Urine Negative (Negative)
[2023-06-25 19:24] LABS: Amorphous Sediment,Urine Rare /hpf; Mucus,Urine Many /hpf; RBC,Urine 1 /hpf (0-5); Squamous Epithelial Cell,Urine 5 /hpf (0-4); WBC,Urine 3 /hpf (0-5)
[2023-06-25 19:29] LABS: Amphetamine Screen,Urine Detected (NotDetected); Barbiturate Screen,Urine Not Detected (NotDetected); Benzodiazepines Screen,Urine Not Detected (NotDetected); Cocaine Screen,Urine Not Detected (NotDetected); Methadone Screen, Urine Not Detected (NotDetected); Opiate Screen,Urine Not Detected (NotDetected); Oxycodone Screen, Urine Not Detected (NotDetected); Phencyclidine Screen,Urine Not Detected (NotDetected); Tricyclic Antidepressant,Urine Not Detected (NotDetected); Urn Cannabinoid Scrn Not Detected (NotDetected)
[2023-06-25 19:53] LABS: ALT 17 U/L (4-34); AST 24 U/L (14-36); African American GFR (CKD) >90 (>60 ml/min/1.73 sqM); Alkaline Phosphatase 40 U/L (38-126); Anion Gap 9 mmol/L; Blood Urea Nitrogen 16 mg/dL (7-17); Calcium 8.9 mg/dL (8.4-10.2); Carbon Dioxide 29 mmol/L (22-30); Chloride 101 mmol/L (98-107); Glucose 100 mg/dL (74-99); Non-African American GFR(CKD) >90 (>60 ml/min/1.73 sqM); Potassium 3.7 mmol/L (3.5-5.1); Sodium 139 mmol/L (137-145); Total Bilirubin 0.5 mg/dL (0.2-1.3); Total Protein 6.3 g/dL (6.3-8.2)
[2023-06-26 01:15] VITALS: BP 108/71; PULSE 76; RESP 18
== END 2023-06-26 01:19 ==
LOC: EC 14:09
DX: R45.851 Suicidal ideations (principal); F32.A Depression, unspecified; F41.9 Anxiety disorder, unspecified; F43.22 Adjustment disorder with anxiety; F17.290 Nicotine dependence, other tobacco product, uncomplicated; F15.90 Other stimulant use, unspecified, uncomplicated; Z86.59 Personal history of other mental and behavioral disorders; Z91.041 Radiographic dye allergy status; Z88.5 Allergy status to narcotic agent; Z20.822 Contact with and (suspected) exposure to COVID-19
CPT/HCPCS: 36415; 80053; 80306; 81001; 81025; 82075; 85025; 87635; 99285

== ENCOUNTER 2023-12-10 06:44 | Emergency (ER) | payer OTHER ==
--- NOTE | 2023-12-10 07:02 | ED ---
Abdominal Pain HPI - General Chief Complaint: Chest Pain Stated Complaint: Abd pain,chest pain Time Seen by Provider: 12/10/23 06:46 Source: patient, RN notes reviewed Mode of arrival: ambulatory Limitations: no limitations - History of Present Illness Initial Comments: This is a 28-year-old female who presents to the emergency department for abdominal pain. Reports pain in the right upper quadrant and epigastric region starting last night. Pain has been occurring intermittently. She did not eat dinner, but states that earlier in the day she did eat [employer]. She has associated nausea. She does have some radiation of pain into the back. Denies any pain in the chest or shortness of breath. Denies any history of problems with gallstones or similar issues in the past. MD Complaint: abdominal pain - Related Data Previous Rx's Medication Instructions Recorded Hyoscyamine Sulfate [Levsin] 0.125 mg PO Q4-6H PRN #30 tab 12/10/23 Naproxen Sodium 550 mg PO BID PRN #20 tablet 12/10/23 Ondansetron Odt [Zofran Odt] 4 mg PO Q8HR PRN #20 tab 12/10/23 Allergies Allergy/AdvReac Type Severity Reaction Status Date / Time Iodinated Contrast Media Allergy Rash/Hives Verified 12/10/23 06:50 [Iodinated Contrast Media - IV Dye] tramadol HCl [From Ultram] Allergy Rash/Hives Verified 12/10/23 06:50 Review of Systems ROS Statement: Those systems with pertinent positive or pertinent negative responses have been documented in the HPI. ROS Other: All systems not noted in ROS Statement are negative. Past Medical History Past Medical History: No Reported History Additional Past Medical History / Comment(s): migraines, chronic neck pain., fibromyalgia History of Any Multi-Drug Resistant Organisms: None Reported Date of last positivie culture/infection: unk MDRO Source:: unk Past Surgical History: Section, Ear Surgery, Tonsillectomy Additional Past Surgical History / Comment(s): arm tumor bx, tubes in and out of ears, D & C's, tubal ligation Past Anesthesia/Blood Transfusion Reactions: No Reported Reaction Past Psychological History: Anxiety, Depression Smoking Status: Current every day smoker, Vaper Past Alcohol Use History: None Reported Past Drug Use History: Methamphetamine - Past Family History Father Family Medical History: No Reported History General Exam Limitations: no limitations General appearance: alert, in distress Head exam: Present: atraumatic, normocephalic, normal inspection Respiratory exam: Present: normal lung sounds bilaterally. Absent: respiratory distress, wheezes, rales, rhonchi, stridor Cardiovascular Exam: Present: regular rate, normal rhythm, normal heart sounds. Absent: systolic murmur, diastolic murmur, rubs, gallop, clicks GI/Abdominal exam: Present: soft, tenderness (RUQ), normal bowel sounds. Absent: distended Neurological exam: Present: alert, oriented X3, CN II-XII intact Psychiatric exam: Present: normal affect, normal mood Skin exam: Present: warm, dry, intact, normal color. Absent: rash Course Vital Signs 12/10/23 12/10/23 12/10/23 06:47 07:33 08:30 Temperature 96.9 F L Pulse Rate 89 84 82 Respiratory 18 18 18 Rate Blood Pressure 115/81 117/80 115/89 O2 Sat by Pulse 97 98 99 Oximetry Medical Decision Making - Medical Decision Making This is a 28 year old female who presents to the emergency department for abdominal pain. Was pt. sent in by a medical professional or institution? @ -No Did you speak to anyone other than the patient for history? @ -No Did you review nursing and triage notes? @ -I disagree with the aspect of chest pain. Patient only complaining of abdominal pain. Were old charts reviewed? @ -No Differential Diagnosis? @ -Differential Abdominal Pain Women: Appendicitis, Cholecystitis, diverticulosis, ischemic bowel, pancreatitis, hepatitis, UTI, gastroenteritis, AAA, incarcerated hernia, bowel obstruction, constipation, inflammatory bowel, hepatitis, peptic ulcer disease, splenic infarction, perforated viscus, vulvitis, ovarian torsion, PID, kidney stone, placenta abruption, this is not meant to be an all-inclusive list EKG interpreted by me (3pts min.)? @ -Not obtained X-rays interpreted by me (1pt min.)? @ -Not obtained CT interpreted by me (1pt min.)? @ -Not obtained U/S interpreted by me (1pt. min.)? @ -Gallbladder ultrasound obtained. My interpretation identifies no evidence of cholelithiasis What testing was considered but not performed? (CT, X-rays, U/S, labs)? Why? @ -None What meds were considered but not given? Why? @ -None Did you discuss the management of the patient with other professionals? @ -No Did you reconcile home meds? @ -No Was smoking cessation discussed for >3mins.? @ -I discussed smoking cessation for greater than 3 minutes. The risk of smoking were discussed with the patient including but not limited to risks of cancer, stroke, coronary artery disease and COPD. Also discussed with patient were multiple methods of quitting smoking. Lastly we discussed the financial cost of smoking. Was critical care preformed (if so, how long)? @ -No Were there social determinants of health that impacted care today? How? (Homelessness, low income, unemployed, alcoholism, drug addiction, transportation, low edu. Level, literacy, decrease access to med. care, assisted, re hab)? @ -No Was there de-escalation of care discussed even if they declined? (Discuss DNR or withdrawal of care, Hospice)? @ -No What co-morbidities impacted this encounter? (DM, HTN, Smoking, COPD, CAD, Cancer, CVA, Hep., AIDS, mental health diagnosis, sleep apnea, morbid obesity)? @ -Smoking Was patient admitted / discharged? @ -Discharged. Lab work unremarkable. Urinalysis negative for signs of infect ion. Gallbladder ultrasound obtained revealing no acute process. Patient initially treated with IV fluids, Toradol, and Dilauded with improvement in symptoms. However she still felt like she had "spasms" in her abdomen. She was subsequently given a GI cocktail which she did also feel was helpful. Her symptoms were well-controlled in the emergency department and the patient felt comfortable with discharge home at that point. Discussed with the patient that symptoms could be related to biliary dyskinesia given the location of her symptoms and with it occurring after eating fatty/greasy food. Advised she discuss ordering a HIDA scan with her primary care provider for evaluation of her gallbladder function. Rx for Naproxen, Levsin, and Zofran provided with dosing instructions reviewed. Advised she avoid fatty/greasy foods for the meantime to reduce the risk of symptom recurrence. Patient discharged home in stable condition. Undiagnosed new problem with uncertain prognosis? @ -None Drug Therapy requiring intensive monitoring for toxicity (Heparin, Nitro, Insulin, Cardizem)? @ -None Were any procedures done? @ -None Diagnosis/symptom? @ -Abdominal pain Acute, or Chronic, or Acute on Chronic? @ -Acute Uncomplicated (without systemic symptoms) or Complicated (systemic symptoms)? @ -Uncomplicated Side effects of treatment? @ -None Exacerbation, Progression, or Severe Exacerbation] @ -Not applicable Poses a threat to life or bodily function? @ -No Return precautions reviewed in depth, the patient is instructed to return to the emergency department with any new, worsening, or concerning symptoms. Patient verbalized understanding. This case was discussed in detail with the attending ED physician, Dr. Pandey. Presentation, findings, and treatment plan discussed in detail as well. - Lab Data Result diagrams: 12/10/23 07:20 12/10/23 07:45 Lab Results 12/10/23 12/10/23 12/10/23 Range/Units 06:57 07:20 07:20 WBC 7.6 (3.8-10.6) k/uL RBC 4.15 (3.80-5.40) m/uL Hgb 13.3 (11.4-16.0) gm/dL Hct 40.5 (34.0-46.0) % MCV 97.6 (80.0-100.0) fL MCH 31.9 (25.0-35.0) pg MCHC 32.7 (31.0-37.0) g/dL RDW 12.8 (11.5-15.5) % Plt Count 199 (150-450) k/uL MPV 10.4 Neutrophils % 59 % Lymphocytes % 33 % Monocytes % 4 % Eosinophils % 1 % Basophils % 1 % Neutrophils # 4.5 (1.3-7.7) k/uL Lymphocytes # 2.5 (1.0-4.8) k/uL Monocytes # 0.3 (0-1.0) k/uL Eosinophils # 0.1 (0-0.7) k/uL Basophils # 0.0 (0-0.2) k/uL Sodium (137-145) mmol/L Potassium (3.5-5.1) mmol/L Chloride (98-107) mmol/L Carbon Dioxide (22-30) mmol/L Anion Gap mmol/L BUN (7-17) mg/dL Creatinine (0.52-1.04) mg/dL Est GFR (CKD-EPI)AfAm (>60 ml/min/1.73 sqM) Est GFR (CKD-EPI)NonAf (>60 ml/min/1.73 sqM) Glucose (74-99) mg/dL Plasma Lactic Acid [place] 0.9 (0.7-2.0) mmol/L Calcium (8.4-10.2) mg/dL Total Bilirubin (0.2-1.3) mg/dL AST (14-36) U/L ALT (4-34) U/L Alkaline Phosphatase (38-126) U/L Total Protein (6.3-8.2) g/dL Albumin (3.5-5.0) g/dL Amylase (30-110) U/L Lipase (23-300) U/L HCG, Qual Urine Color Light Yellow Urine Appearance Cloudy H (Clear) Urine pH 5.5 (5.0-8.0) Ur Specific [place] 1.022 (1.001-1.035) Urine Protein Negative (Negative) Urine Glucose (UA) Negative (Negative) Urine Ketones Negative (Negative) Urine Blood Trace H (Negative) Urine Nitrite Negative (Negative) Urine Bilirubin Negative (Negative) Urine Urobilinogen <2.0 (<2.0) mg/dL Ur Leukocyte Esterase Negative (Negative) Urine RBC 1 (0-5) /hpf Urine WBC 1 (0-5) /hpf Ur Squamous Epith Cells 39 H (0-4) /hpf Urine Mucus Occasional H (None) /hpf 12/10/23 Range/Units 07:45 WBC (3.8-10.6) k/uL RBC (3.80-5.40) m/uL Hgb (11.4-16.0) gm/dL Hct (34.0-46.0) % MCV (80.0-100.0) fL MCH (25.0-35.0) pg MCHC (31.0-37.0) g/dL RDW (11.5-15.5) % Plt Count (150-450) k/uL MPV Neutrophils % % Lymphocytes % % Monocytes % % Eosinophils % % Basophils % % Neutrophils # (1.3-7.7) k/uL Lymphocytes # (1.0-4.8) k/uL Monocytes # (0-1.0) k/uL Eosinophils # (0-0.7) k/uL Basophils # (0-0.2) k/uL Sodium 140 (137-145) mmol/L Potassium 3.6 (3.5-5.1) mmol/L Chloride 111 H (98-107) mmol/L Carbon Dioxide 23 (22-30) mmol/L Anion Gap 6 mmol/L BUN 12 (7-17) mg/dL Creatinine 0.60 (0.52-1.04) mg/dL Est GFR (CKD-EPI)AfAm >90 (>60 ml/min/1.73 sqM) Est GFR (CKD-EPI)NonAf >90 (>60 ml/min/1.73 sqM) Glucose 86 (74-99) mg/dL Plasma Lactic Acid [place] (0.7-2.0) mmol/L Calcium 8.3 L (8.4-10.2) mg/dL Total Bilirubin 0.4 (0.2-1.3) mg/dL AST 19 (14-36) U/L ALT 12 (4-34) U/L Alkaline Phosphatase 38 (38-126) U/L Total Protein 5.6 L (6.3-8.2) g/dL Albumin 3.4 L (3.5-5.0) g/dL Amylase 47 (30-110) U/L Lipase 94 (23-300) U/L HCG, Qual Not Detected Urine Color Urine Appearance (Clear) Urine pH (5.0-8.0) Ur Specific [place] (1.001-1.035) Urine Protein (Negative) Urine Glucose (UA) (Negative) Urine Ketones (Negative) Urine Blood (Negative) Urine Nitrite (Negative) Urine Bilirubin (Negative) Urine Urobilinogen (<2.0) mg/dL Ur Leukocyte Esterase (Negative) Urine RBC (0-5) /hpf Urine WBC (0-5) /hpf Ur Squamous Epith Cells (0-4) /hpf Urine Mucus (None) /hpf - Radiology Data Radiology results: report reviewed, image reviewed Disposition Clinical Impression: Nicotine dependence, Abdominal pain Disposition: HOME SELF-CARE Instructions (If sedation given, give patient instructions): Abdominal Pain (ED) Additional Instructions: Return to the emergency department with any new, worsening, or concerning symptoms. Take the naproxen twice daily as needed for pain relief. If you choose to take this do not take any other anti-inflammatories such as ibuprofen, take one or the other. You can take the Levsin every 4-6 hours as needed for abdominal discomfort. You can also take an [id number] antacid such as pantoprazole or famotidine. Take the Zofran up to every 8 hours as needed for nausea and vomiting. Follow a low-fat and bland diet for the meantime to reduce the risk of symptom recurrence. Follow up with your primary care provider in 1- 2 days and discuss a HIDA scan for evaluation of your gallbladder function. Prescriptions: Hyoscyamine Sulfate [Levsin] 0.125 mg PO Q4-6H PRN #30 tab PRN Reason: Gi Upset Naproxen Sodium 550 mg PO BID PRN #20 tablet PRN Reason: Pain Ondansetron Odt [Zofran Odt] 4 mg PO Q8HR PRN #20 tab PRN Reason: Nausea And Vomiting Is patient prescribed a controlled substance at d/c from ED?: No Referrals: Liz Ashby MD [Primary Care Provider] - 1-2 days Time of Disposition: 08:49
[2023-12-10] MEDS: PANTOPRAZOLE 40 MG/10 ML VIAL IVP STA (07:27)
[2023-12-10] MEDS: KETOROLAC 15 MG/ML 1 ML VIAL IVP STA (07:28)
[2023-12-10] MEDS: ONDANSETRON 4 MG/2 ML VIAL IVP STA (07:29)
[2023-12-10] MEDS: SODIUM CHLORIDE 0.9% 1,000 ML IV STA (07:31)
[2023-12-10] MEDS: HYDROmorphone 0.5 MG/0.5 ML SYRINGE IVP STA ×2 (07:32→08:53)
[2023-12-10 07:36] LABS: Basophils % (A) 1 %; Eosinophils # (A) 0.1 k/uL (0-0.7); Eosinophils % (A) 1 %; HCT 40.5 % (34.0-46.0); HGB 13.3 gm/dL (11.4-16.0); Lymphocytes # (A) 2.5 k/uL (1.0-4.8); Lymphocytes % (A) 33 %; MCH 31.9 pg (25.0-35.0); MCHC 32.7 g/dL (31.0-37.0); MCV 97.6 fL (80.0-100.0); Mean Platelet Volume 10.4; Monocytes # (A) 0.3 k/uL (0-1.0); Monocytes % (A) 4 %; Neutrophils # (A) 4.5 k/uL (1.3-7.7); Neutrophils % (A) 59 %; Platelet Count 199 k/uL (150-450); RBC 4.15 m/uL (3.80-5.40); RDW 12.8 % (11.5-15.5); WBC 7.6 k/uL (3.8-10.6)
--- NOTE | 2023-12-10 07:36 | US ---
EXAMINATION TYPE: US gallbladder DATE OF EXAM: 12/10/2023 COMPARISON: 09/04/2016 CLINICAL INDICATION: Female, 28 years old with history of RUQ pain; Patient has abdominal pain that c omes and goes. TECHNIQUE: Multiple sonographic images of the right upper quadrant are obtained. FINDINGS: EXAM MEASUREMENTS: Liver Length: 14.9 cm Gallbladder Wall: 0.2 cm CBD: 0.6 cm Right Kidney: 10.3 x 3.8 x 6.0 cm ERP CONSULTANT NOTES:Limited visibility due to overlying midline gas Pancreas: Obscured by bowel gas Liver: wnl as best seen today Gallbladder: No stones seen. Wall appears WNL. Evidence for sonographic Montalvo's sign: No CBD: Upper limits of normal Right Kidney: No hydronephrosis or masses seen as best visualized IMPRESSION: No distinct abnormality seen.
[2023-12-10 07:53] LABS: Appearance,Urine Cloudy (Clear); Bilirubin,Urine Negative (Negative); Blood,Urine Trace (Negative); Color,Urine Light Yellow; Glucose,Urine (UA) Negative (Negative); Ketones,Urine Negative (Negative); Leukocyte Esterase,Urine Negative (Negative); Mucus,Urine Occasional /hpf; Nitrite,Urine Negative (Negative); PH, Urine 5.5 (5.0-8.0); Protein,Urine Negative (Negative); RBC,Urine 1 /hpf (0-5); Specific Gravity,Urine 1.022 (1.001-1.035); Squamous Epithelial Cell,Urine 39 /hpf (0-4); Urobilinogen,Urine <2.0 mg/dL (<2.0); WBC,Urine 1 /hpf (0-5)
[2023-12-10 08:16] LABS: ALT 12 U/L (4-34); AST 19 U/L (14-36); African American GFR (CKD) >90 (>60 ml/min/1.73 sqM); Albumin 3.4 g/dL (3.5-5.0); Alkaline Phosphatase 38 U/L (38-126); Amylase 47 U/L (30-110); Anion Gap 6 mmol/L; Blood Urea Nitrogen 12 mg/dL (7-17); Calcium 8.3 mg/dL (8.4-10.2); Carbon Dioxide 23 mmol/L (22-30); Chloride 111 mmol/L (98-107); Glucose 86 mg/dL (74-99); Lipase 94 U/L (23-300); Non-African American GFR(CKD) >90 (>60 ml/min/1.73 sqM); Potassium 3.6 mmol/L (3.5-5.1); Sodium 140 mmol/L (137-145); Total Bilirubin 0.4 mg/dL (0.2-1.3); Total Protein 5.6 g/dL (6.3-8.2)
[2023-12-10 08:17] LABS: HCG,Qualitative Serum Not Detected
[2023-12-10] MEDS: MAG HYDROX/AL HYDROX/SIMETH 30 ML, HYOSCYAMINE ELIXIR 10 ML, LIDOCAINE VISCOUS 2% 10 ML PO STA (08:30)
[2023-12-10 08:44] VITALS: BP 115/89; PULSE 82; RESP 18; TEMP 96.9
[2023-12-10] MEDS: ACET/COD 300 MG/30 MG STARTER PACK 6 TAB BTL PO STA (08:54)
== END 2023-12-10 09:38 | disposition home or self-care (01) ==
LOC: EC 06:44
DX: R10.11 Right upper quadrant pain (principal); R10.13 Epigastric pain; F17.290 Nicotine dependence, other tobacco product, uncomplicated; Z88.5 Allergy status to narcotic agent; Z91.041 Radiographic dye allergy status
CPT/HCPCS: 36415; 80053; 82150; 83605; 83690; 85025; 81001; 84703; 76705; 99406; 99284; 96374; 96375 ×3; 96376; 96361; J2405; J1885; C9113; J1170

== ENCOUNTER 2024-03-17 13:45 | Emergency (ER) | payer OTHER ==
[2024-03-17 14:00] LABS: Basophils % (A) 1 %; Eosinophils # (A) 0.1 k/uL (0-0.7); Eosinophils % (A) 1 %; HCT 41.5 % (34.0-46.0); HGB 13.7 gm/dL (11.4-16.0); Lymphocytes % (A) 37 %; MCH 32.4 pg (25.0-35.0); MCHC 32.9 g/dL (31.0-37.0); MCV 98.7 fL (80.0-100.0); Mean Platelet Volume 10.5; Monocytes # (A) 0.3 k/uL (0-1.0); Monocytes % (A) 6 %; Neutrophils # (A) 2.9 k/uL (1.3-7.7); Neutrophils % (A) 54 %; Platelet Count 189 k/uL (150-450); RBC 4.21 m/uL (3.80-5.40); WBC 5.3 k/uL (3.8-10.6)
[2024-03-17 14:02] LABS: Appearance,Urine Clear (Clear); Bilirubin,Urine Negative (Negative); Blood,Urine Negative (Negative); Color,Urine Light Yellow; Glucose,Urine (UA) Negative (Negative); Ketones,Urine Negative (Negative); Leukocyte Esterase,Urine Negative (Negative); Nitrite,Urine Negative (Negative); Protein,Urine Negative (Negative); Urobilinogen,Urine <2.0 mg/dL (<2.0)
[2024-03-17 14:16] LABS: ALT 12 U/L (4-34); AST 22 U/L (14-36); African American GFR (CKD) >90 (>60 ml/min/1.73 sqM); Albumin 4.5 g/dL (3.5-5.0); Alkaline Phosphatase 33 U/L (38-126); Amylase 51 U/L (30-110); Anion Gap 6 mmol/L; Blood Urea Nitrogen 11 mg/dL (7-17); Calcium 9.2 mg/dL (8.4-10.2); Carbon Dioxide 27 mmol/L (22-30); Chloride 107 mmol/L (98-107); Glucose 126 mg/dL (74-99); Lipase 131 U/L (23-300); Non-African American GFR(CKD) >90 (>60 ml/min/1.73 sqM); Potassium 4.2 mmol/L (3.5-5.1); Sodium 140 mmol/L (137-145); Total Bilirubin 0.5 mg/dL (0.2-1.3); Total Protein 6.7 g/dL (6.3-8.2)
--- NOTE | 2024-03-17 16:14 | ED ---
Abdominal Pain HPI - General Source: patient, RN notes reviewed, old records reviewed Mode of arrival: ambulatory Limitations: no limitations <Vargas Hernandez - Last Filed: 03/17/24 16:13> - General Source: RN notes reviewed <Danitza Nagel - Last Filed: 03/17/24 18:13> - General Chief Complaint: Abdominal Pain Stated Complaint: abd pain Time Seen by Provider: 03/17/24 13:49 - History of Present Illness Initial Comments: QN 28 female to ER with epigastric right upper quadrant abdominal pain burning pain after she eats. No history of ulcerative disease. No history of abdominal surgery. No fevers no nausea vomiting no travel history or sick contacts denies current possibility of . (Vargas Hernandez) 28-year-old female presenting with right upper quadrant abdominal pain x 3 days. Describes it as cramping pain directly after she eats. She does have a history of pancreatitis but states this feels different. Denies previous abdominal surgeries. Admits nausea but denies vomiting, diarrhea, fevers. (Danitza Nagel) - Related Data Previous Rx's Medication Instructions Recorded Hyoscyamine Sulfate [Levsin] 0.125 mg PO Q4-6H PRN #30 tab 12/10/23 Naproxen Sodium 550 mg PO BID PRN #20 tablet 12/10/23 Ondansetron Odt [Zofran Odt] 4 mg PO Q8HR PRN #20 tab 12/10/23 Allergies Allergy/AdvReac Type Severity Reaction Status Date / Time Iodinated Contrast Media Allergy Rash/Hives Verified 03/17/24 13:48 [Iodinated Contrast Media - IV Dye] tramadol HCl [From Ultram] Allergy Rash/Hives Verified 03/17/24 13:48 Review of Systems ROS Other: All systems not noted in ROS Statement are negative. <Vargas Hernandez - Last Filed: 03/17/24 16:13> ROS Other: All systems not noted in ROS Statement are negative. <Danitza Nagel - Last Filed: 03/17/24 18:13> ROS Statement: Those systems with pertinent positive or pertinent negative responses have been documented in the HPI. Past Medical History Past Medical History: No Reported History Additional Past Medical History / Comment(s): migraines, chronic neck pain., fibromyalgia History of Any Multi-Drug Resistant Organisms: None Reported Date of last positivie culture/infection: unk MDRO Source:: unk Past Surgical History: Section, Ear Surgery, Tonsillectomy Additional Past Surgical History / Comment(s): arm tumor bx, tubes in and out of ears, D & C's, tubal ligation Past Anesthesia/Blood Transfusion Reactions: No Reported Reaction Past Psychological History: Anxiety, Depression Smoking Status: Current every day smoker, Vaper Past Alcohol Use History: None Reported Past Drug Use History: Methamphetamine - Past Family History Father Family Medical History: No Reported History <Vargas Hernandez - Last Filed: 03/17/24 16:13> General Exam Limitations: no limitations General appearance: alert, in no apparent distress Head exam: Present: atraumatic, normocephalic, normal inspection Eye exam: Present: normal appearance, PERRL, EOMI. Absent: scleral icterus, conjunctival injection, periorbital swelling ENT exam: Present: normal exam, mucous membranes moist Neck exam: Present: normal inspection. Absent: tenderness, meningismus, lymphadenopathy Respiratory exam: Present: normal lung sounds bilaterally. Absent: respiratory distress, wheezes, rales, rhonchi, stridor Cardiovascular Exam: Present: regular rate, normal rhythm, normal heart sounds. Absent: systolic murmur, diastolic murmur, rubs, gallop, clicks GI/Abdominal exam: Present: soft, normal bowel sounds. Absent: distended, tenderness, guarding, rebound, rigid Extremities exam: Present: normal inspection, full ROM, normal capillary refill. Absent: tenderness, pedal edema, joint swelling, calf tenderness Back exam: Present: normal inspection Neurological exam: Present: alert, oriented X3, CN II-XII intact Psychiatric exam: Present: normal affect, normal mood Skin exam: Present: warm, dry, intact, normal color. Absent: rash <Vargas Hernandez - Last Filed: 03/17/24 16:13> General appearance: alert, in no apparent distress Head exam: Present: atraumatic, normocephalic, normal inspection Eye exam: Present: normal appearance, PERRL, EOMI. Absent: scleral icterus, conjunctival injection, periorbital swelling Respiratory exam: Present: normal lung sounds bilaterally. Absent: respiratory distress, wheezes, rales, rhonchi, stridor Cardiovascular Exam: Present: regular rate, normal rhythm, normal heart sounds. Absent: systolic murmur, diastolic murmur, rubs, gallop, clicks GI/Abdominal exam: Present: soft, normal bowel sounds. Absent: distended, guarding, rebound, rigid Extremities exam: Present: normal inspection, full ROM, normal capillary refill. Absent: tenderness, pedal edema, joint swelling, calf tenderness Back exam: Absent: CVA tenderness (R), CVA tenderness (L) Neurological exam: Present: alert, oriented X3 Psychiatric exam: Present: normal affect, normal mood Skin exam: Present: warm, dry, intact, normal color. Absent: rash <Danitza Nagel - Last Filed: 03/17/24 18:13> Course <Vargas Hernandez - Last Filed: 03/17/24 16:13> Vital Signs 03/17/24 13:46 Temperature 98 F Pulse Rate 72 Respiratory 20 Rate Blood Pressure 107/71 O2 Sat by Pulse 97 Oximetry - Reevaluation(s) Reevaluation #1: 03/17/24 16:14 QN completed by myself Dr. Hernandez (Vargas Hernandez) Medical Decision Making - Lab Data Result diagrams: 03/17/24 13:50 03/17/24 13:50 <Vargas Hernandez - Last Filed: 03/17/24 16:13> - Lab Data Result diagrams: 03/17/24 13:50 03/17/24 13:50 <Danitza Nagel - Last Filed: 03/17/24 18:13> - Medical Decision Making Was pt. sent in by a medical professional or institution (, PA, CHAIN MAKER, urgent care, hospital, or halfway...) When possible be specific @ -No Did you speak to anyone other than the patient for history (EMS, parent, family, police, friend...)? What history was obtained from this source @ -No Did you review nursing and triage notes (agree or disagree)? Why? @ -I reviewed and agree with nursing and triage notes Were old charts reviewed (outside hosp., previous admission, EMS record, old EKG, old radiological studies, urgent care reports/EKG's, halfway records)? Report findings @ -No old charts were reviewed Differential Diagnosis (chest pain, altered mental status, abdominal pain women, abdominal pain men, vaginal bleeding, weakness, fever, dyspnea, syncope, headache, dizziness, GI bleed, back pain, seizure, CVA, palpatations, mental health, musculoskeletal)? @ -Differential Abdominal Pain Women: Appendicitis, Cholecystitis, diverticulosis, ischemic bowel, pancreatitis, hepatitis, UTI, gastroenteritis, AAA, incarcerated hernia, bowel obstruction, constipation, inflammatory bowel, hepatitis, peptic ulcer disease, splenic infarction, perforated viscus, vulvitis, ovarian torsion, PID, kidney stone, placenta abruption, this is not meant to be an all-inclusive list EKG interpreted by me (3pts min.). @ -None X-rays interpreted by me (1pt min.). @ -None done CT interpreted by me (1pt min.). @ -None done U/S interpreted by me (1pt. min.). @ -Ultrasound of right upper quadrant reveals suboptimal visualization of the pancreas, however gallbladder was unremarkable What testing was considered but not performed or refused? (CT, X-rays, U/S, labs)? Why? @ -CT not performed due to patient nontender, all lab work unremarkable What meds were considered but not given or refused? Why? @ -None Did you discuss the management of the patient with other professionals (professionals i.e. , PA, CHAIN MAKER, lab, RT, psych nurse, social work assistant, tooth grinder, teacher, alumni relations officer, family service caseworker)? Give summary @ -No Was smoking cessation discussed for >3mins.? @ -No Was critical care preformed (if so, how long)? @ -No Were there social determinants of health that impacted care today? How? (Homelessness, low income, unemployed, alcoholism, drug addiction, transportation, low edu. Level, literacy, decrease access to med. care, half-way, rehab)? @ -No Was there de-escalation of care discussed even if they declined (Discuss DNR or withdrawal of care, Hospice)? DNR status @ -No What co-morbidities impacted this encounter? (DM, HTN, Smoking, COPD, CAD, Cancer, CVA, ARF, Chemo, Hep., AIDS, mental health diagnosis, sleep apnea, morbi d obesity)? @ -None Was patient admitted / discharged? Hospital course, mention meds given and route , prescriptions, significant lab abnormalities, going to OR and other pertinent info. @ -Patient was discharged. Patient was seen and evaluated for right upper quadrant abdominal pain x 3 days. No red flag symptoms. Vital signs are within normal limits. Abdomen is nontender to palpation. Patient was given IV Reglan and fluids. Lab work including CBC, CMP, lipase, urine is unremarkable. Ultr asound reveals suboptimal visualization of the pancreas, however gallbladder is unremarkable. Upon reevaluation, patient's symptoms have improved. Discussed there is no sign of emergent etiology causing abdominal pain at this time. Instructed to follow-up with GI if symptoms persist. Strict return parameters discussed and patient shows understanding and agrees with plan. Case was discussed with my attending Dr. Hernandez. Patient discharged in stable condition. Undiagnosed new problem with uncertain prognosis? @ -No Drug Therapy requiring intensive monitoring for toxicity (Heparin, Nitro, Insulin, Cardizem)? @ -No Were any procedures done? @ -No Diagnosis/symptom? @ -Abdominal pain Acute, or Chronic, or Acute on Chronic? @ -Acute Uncomplicated (without systemic symptoms) or Complicated (systemic symptoms)? @ -Uncomplicated Side effects of treatment? @ -No Exacerbation, Progression, or Severe Exacerbation? @ -No Poses a threat to life or bodily function? How? (Chest pain, [place], [place], pneumonia, PE, COPD, DKA, ARF, appy, cholecystitis, CVA, Diverticulitis, Homicidal, Suicidal, threat to staff... and all critical care pts) @ -Unlikely at this time (Danitza Nagel) - Lab Data Lab Results 03/17/24 03/17/24 03/17/24 Range/Units 13:50 13:50 13:50 WBC 5.3 (3.8-10.6) k/uL RBC 4.21 (3.80-5.40) m/uL Hgb 13.7 (11.4-16.0) gm/dL Hct 41.5 (34.0-46.0) % MCV 98.7 (80.0-100.0) fL MCH 32.4 (25.0-35.0) pg MCHC 32.9 (31.0-37.0) g/dL RDW 13.0 (11.5-15.5) % Plt Count 189 (150-450) k/uL MPV 10.5 Neutrophils % 54 % Lymphocytes % 37 % Monocytes % 6 % Eosinophils % 1 % Basophils % 1 % Neutrophils # 2.9 (1.3-7.7) k/uL Lymphocytes # 2.0 (1.0-4.8) k/uL Monocytes # 0.3 (0-1.0) k/uL Eosinophils # 0.1 (0-0.7) k/uL Basophils # 0.0 (0-0.2) k/uL Sodium 140 (137-145) mmol/L Potassium 4.2 (3.5-5.1) mmol/L Chloride 107 (98-107) mmol/L Carbon Dioxide 27 (22-30) mmol/L Anion Gap 6 mmol/L BUN 11 (7-17) mg/dL Creatinine 0.63 (0.52-1.04) mg/dL Est GFR (CKD-EPI)AfAm >90 (>60 ml/min/1.73 sqM) Est GFR (CKD-EPI)NonAf >90 (>60 ml/min/1.73 sqM) Glucose 126 H (74-99) mg/dL Calcium 9.2 (8.4-10.2) mg/dL Total Bilirubin 0.5 (0.2-1.3) mg/dL AST 22 (14-36) U/L ALT 12 (4-34) U/L Alkaline Phosphatase 33 L (38-126) U/L Total Protein 6.7 (6.3-8.2) g/dL Albumin 4.5 (3.5-5.0) g/dL Amylase 51 (30-110) U/L Lipase 131 (23-300) U/L Urine Color Light Yellow Urine Appearance Clear (Clear) Urine pH 6.0 (5.0-8.0) Ur Specific Franklin 1.020 (1.001-1.035) Urine Protein Negative (Negative) Urine Glucose (UA) Negative (Negative) Urine Ketones Negative (Negative) Urine Blood Negative (Negative) Urine Nitrite Negative (Negative) Urine Bilirubin Negative (Negative) Urine Urobilinogen <2.0 (<2.0) mg/dL Ur Leukocyte Esterase Negative (Negative) Urine HCG, Qual (Not Detectd) 03/17/24 Range/Units 13:50 WBC (3.8-10.6) k/uL RBC (3.80-5.40) m/uL Hgb (11.4-16.0) gm/dL Hct (34.0-46.0) % MCV (80.0-100.0) fL MCH (25.0-35.0) pg MCHC (31.0-37.0) g/dL RDW (11.5-15.5) % Plt Count (150-450) k/uL MPV Neutrophils % % Lymphocytes % % Monocytes % % Eosinophils % % Basophils % % Neutrophils # (1.3-7.7) k/uL Lymphocytes # (1.0-4.8) k/uL Monocytes # (0-1.0) k/uL Eosinophils # (0-0.7) k/uL Basophils # (0-0.2) k/uL Sodium (137-145) mmol/L Potassium (3.5-5.1) mmol/L Chloride (98-107) mmol/L Carbon Dioxide (22-30) mmol/L Anion Gap mmol/L BUN (7-17) mg/dL Creatinine (0.52-1.04) mg/dL Est GFR (CKD-EPI)AfAm (>60 ml/min/1.73 sqM) Est GFR (CKD-EPI)NonAf (>60 ml/min/1.73 sqM) Glucose (74-99) mg/dL Calcium (8.4-10.2) mg/dL Total Bilirubin (0.2-1.3) mg/dL AST (14-36) U/L ALT (4-34) U/L Alkaline Phosphatase (38-126) U/L Total Protein (6.3-8.2) g/dL Albumin (3.5-5.0) g/dL Amylase (30-110) U/L Lipase (23-300) U/L Urine Color Urine Appearance (Clear) Urine pH (5.0-8.0) Ur Specific Franklin (1.001-1.035) Urine Protein (Negative) Urine Glucose (UA) (Negative) Urine Ketones (Negative) Urine Blood (Negative) Urine Nitrite (Negative) Urine Bilirubin (Negative) Urine Urobilinogen (<2.0) mg/dL Ur Leukocyte Esterase (Negative) Urine HCG, Qual Not Detected (Not Detectd) Disposition <Vargsa Hernandez - Last Filed: 03/17/24 16:13> Is patient prescribed a controlled substance at d/c from ED?: No Time of Disposition: 18:06 <Danitza Nagel - Last Filed: 03/17/24 18:13> Clinical Impression: Abdominal pain Disposition: HOME SELF-CARE Condition: Stable Instructions (If sedation given, give patient instructions): Abdominal Pain (E D) Additional Instructions: Follow-up with GI if symptoms persist. Please return to the Emergency Department if symptoms worsen or any other concerns. Referrals: Liz Ashby MD [Primary Care Provider] - 1-2 days Renu Rand MD [STAFF PHYSICIAN] - 1-2 days
--- NOTE | 2024-03-17 16:58 | US ---
EXAMINATION TYPE: US gallbladder DATE OF EXAM: 03/17/2024 COMPARISON: NONE CLINICAL INDICATION: Female, 28 years old with history of pain TECHNIQUE: Multiple sonographic images of the right upper quadrant are obtained. FINDINGS: EXAM MEASUREMENTS: Liver Length: 13 cm Gallbladder Wall: .3 cm CBD: .5 cm Right Kidney: 9.5 x 3.1 x 5.0 cm Pancreas: Only a small portion of the pancreatic head is seen. The remainder is obscured by bowel ga s shadowing. Liver: wnl Gallbladder: No stones seen Evidence for sonographic Montalvo's sign: No CBD: wnl Right Kidney: No hydronephrosis or masses seen IMPRESSION: Suboptimal visualization of the pancreas. Otherwise, unremarkable sonographic examination of the righ t upper quadrant.
[2024-03-17] MEDS: SODIUM CHLORIDE 0.9% 1,000 ML IV STA (17:47)
[2024-03-17] MEDS: METOCLOPRAMIDE 5 MG/ML 2 ML VIAL IVP STA (17:47)
[2024-03-17 18:22] VITALS: BP 100/68; PULSE 74; RESP 16; TEMP 98.1
[2024-03-17] MEDS: ONDANSETRON 4 MG ODT STARTER PACK 2 TAB BTL PO STA (18:23)
== END 2024-03-17 18:24 | disposition home or self-care (01) ==
LOC: EC 13:45
DX: R10.11 Right upper quadrant pain (principal); F17.290 Nicotine dependence, other tobacco product, uncomplicated; Z91.041 Radiographic dye allergy status; Z88.8 Allergy status to other drugs, medicaments and biological substances
CPT/HCPCS: 36415; 80053; 82150; 83690; 85025; 81003; 81025; 76705; 99284; 96374; 96361; J2765; S0119

== ENCOUNTER 2024-05-09 21:18 | Emergency (ER) | payer OTHER ==
[2024-05-09 21:22] VITALS: TEMP 98.1
[2024-05-09] MEDS: SODIUM CHLORIDE 0.9% 500 ML 500 ML IV STA (21:49)
[2024-05-09] MEDS: LORazepam 2 MG/ML INJ IV STA (21:49)
--- NOTE | 2024-05-09 21:59 | ED ---
Chest Pain HPI - General Chief Complaint: Chest Pain Stated Complaint: Chest pain Time Seen by Provider: 05/09/24 21:27 Source: patient Mode of arrival: ambulatory Limitations: no limitations - History of Present Illness Initial Comments: 28-year-old female presenting with chief complaint of chest pain. Patient states this started about 2 hours ago. She also states that about 3 hours ago she found out that her boyfriend was cheating on her. She states that she feels very anxious. The chest pain feels like a pressure in the center of her chest. She states that she is having difficulty catching her breath. She was tearful obtaining the history. She suspects that it is due to her stress and anxiety but wanted to be evaluated just to be sure. No abdominal pain, nausea, vomiting, lower extremity swelling, recent surgery or travel, history of blood clots, fever. She does currently have cough and congestion. - Related Data Previous Rx's Medication Instructions Recorded Hyoscyamine Sulfate [Levsin] 0.125 mg PO Q4-6H PRN #30 tab 12/10/23 Naproxen Sodium 550 mg PO BID PRN #20 tablet 12/10/23 Ondansetron Odt [Zofran Odt] 4 mg PO Q8HR PRN #20 tab 12/10/23 Allergies Allergy/AdvReac Type Severity Reaction Status Date / Time Iodinated Contrast Media Allergy Rash/Hives Verified 05/09/24 21:22 [Iodinated Contrast Media - IV Dye] tramadol HCl [From Ultram] Allergy Rash/Hives Verified 05/09/24 21:22 Review of Systems ROS Statement: Those systems with pertinent positive or pertinent negative responses have been documented in the HPI. ROS Other: All systems not noted in ROS Statement are negative. Past Medical History Past Medical History: No Reported History Additional Past Medical History / Comment(s): migraines, chronic neck pain., fibromyalgia History of Any Multi-Drug Resistant Organisms: None Reported Date of last positivie culture/infection: unk MDRO Source:: unk Past Surgical History: Section, Ear Surgery, Tonsillectomy Additional Past Surgical History / Comment(s): arm tumor bx, tubes in and out of ears, D & C's, tubal ligation Past Anesthesia/Blood Transfusion Reactions: No Reported Reaction Past Psychological History: Anxiety, Depression Smoking Status: Current every day smoker, Vaper Past Alcohol Use History: None Reported Past Drug Use History: Methamphetamine - Past Family History Father Family Medical History: No Reported History General Exam Limitations: no limitations General appearance: alert, anxious Head exam: Present: atraumatic, normocephalic Eye exam: Present: normal appearance, EOMI Neck exam: Present: normal inspection. Absent: meningismus Respiratory exam: Present: normal lung sounds bilaterally. Absent: respiratory distress, wheezes, rales, rhonchi, stridor Cardiovascular Exam: Present: regular rate, normal rhythm, normal heart sounds. Absent: systolic murmur, diastolic murmur, rubs, gallop, clicks Neurological exam: Present: alert, oriented X3 Psychiatric exam: Present: anxious Skin exam: Present: normal color Course Vital Signs 05/09/24 05/09/24 05/09/24 21:19 22:51 23:00 Temperature 98.1 F Pulse Rate 99 85 87 Respiratory 18 12 23 Rate Blood Pressure 121/72 115/79 115/79 O2 Sat by Pulse 97 98 99 Oximetry 05/10/24 00:00 Temperature Pulse Rate 77 Respiratory 16 Rate Blood Pressure 110/83 O2 Sat by Pulse 96 Oximetry Chest Pain MDM - MDM Was pt. sent in by a medical professional or institution (, PA, MINING TEACHER, urgent care, hospital, or senior care...) When possible be specific @ -No Did you speak to anyone other than the patient for history (EMS, parent, family, police, friend...)? What history was obtained from this source @ -No Did you review nursing and triage notes (agree or disagree)? Why? @ -I reviewed and agree with nursing and triage notes Were old charts reviewed (outside hosp., previous admission, EMS record, old EKG, old radiological studies, urgent care reports/EKG's, senior care records)? Report findings @ -No old charts were reviewed Differential Diagnosis (chest pain, altered mental status, abdominal pain women, abdominal pain men, vaginal bleeding, weakness, fever, dyspnea, syncope, headache, dizziness, GI bleed, back pain, seizure, CVA, palpatations, mental health, musculoskeletal)? @ -MDM Differential Chest Pain: Stable Angina, Unstable Angina, STEMI, NSTEMI Aortic Dissection, Pneumothorax, Musculoskeletal, Esophageal Spasm GERD, Cholecystitis, Pancreatitis, Zoster This is not meant to be an all-inclusive list. EKG interpreted by me (3pts min.). @ -EKG shows sinus rhythm with sinus arrhythmia. Ventricular rate 75. WA interval 148. QRS 88. QT 352. QTc 381. X-rays interpreted by me (1pt min.). @ -Chest x-ray shows no acute cardiopulmonary disease/process CT interpreted by me (1pt min.). @ -None done U/S interpreted by me (1pt. min.). @ -None done What testing was considered but not performed or refused? (CT, X-rays, U/S, labs)? Why? @ -None What meds were considered but not given or refused? Why? @ -None Did you discuss the management of the patient with other professionals (professionals i.e. , PA, MINING TEACHER, lab, RT, psych nurse, bilingual social worker, endbander, teacher, parking enforcement officer, director of casework services)? Give summary @ -No Was smoking cessation discussed for >3mins.? @ -No Was critical care preformed (if so, how long)? @ -No Were there social determinants of health that impacted care today? How? (Homelessness, low income, unemployed, alcoholism, drug addiction, transportation, low edu. Level, literacy, decrease access to med. care, [facility], rehab)? @ -No Was there de-escalation of care discussed even if they declined (Discuss DNR or withdrawal of care, Hospice)? DNR status @ -No What co-morbidities impacted this encounter? (DM, HTN, Smoking, COPD, CAD, Cancer, CVA, ARF, Chemo, Hep., AIDS, mental health diagnosis, sleep apnea, morbid obesity)? @ -None Was patient admitted / discharged? Hospital course, mention meds given and route, prescriptions, significant lab abnormalities, going to OR and other pertinent info. @ -. 28-year-old female presenting chief complaint of chest pain. Pain started about 2 hours ago. 3 hours ago she landed her boyfriend was cheating on her and believes that this is likely attributed to her anxiety but wanted to be evaluated. History and physical exam are conducted. Heart and lungs are clear to auscultation and there is no lower extremity edema. Patient does appear anxious and is tearful at the bedside. Lab work shows no leukocytosis or anemia. Negative troponin. Negative for influenza, RSV, COVID. Remainder of labs require no action. Chest x-ray shows no acute process. EKG shows sinus rhythm with no ST deviation. Patient was given 1 mg of Ativan to help with her anxiety. On reassessment she is resting in the bed showing no acute signs of distress. She does report improvement in her anxiety. She is educated on today's findings. She expresses concern that she will have difficulty falling asleep at home tonight. I provided her with 6 mg of melatonin to take only once she is at home and ready to go to bed. Discharged. Follow-up with PCP. Report back to ER with any new or worsening symptoms. Discussed return parameters and answered all questions. Patient conveyed verbal understanding and agreed to the plan. I discussed this case in detail with my attending Dr. Pandey Undiagnosed new problem with uncertain prognosis? @ -No Drug Therapy requiring intensive monitoring for toxicity (Heparin, Nitro, Insulin, Cardizem)? @ -No Were any procedures done? @ -No Diagnosis/symptom? @ -Anxiety Acute, or Chronic, or Acute on Chronic? @ -Acute on chronic Uncomplicated (without systemic symptoms) or Complicated (systemic symptoms)? @ -complicated Side effects of treatment? @ -No Exacerbation, Progression, or Severe Exacerbation? @ -No Poses a threat to life or bodily function? How? (Chest pain, [place], [place], pneumonia, PE, COPD, DKA, ARF, appy, cholecystitis, CVA, Diverticulitis, Homicidal, Suicidal, threat to staff... and all critical care pts) @ -Unlikely Disposition Clinical Impression: Anxiety Disposition: HOME SELF-CARE Condition: Good Instructions (If sedation given, give patient instructions): Chest Pain (ED), Anxiety (ED) Additional Instructions: Follow-up with PCP. Report back to ER with any new or worsening symptoms. Is patient prescribed a controlled substance at d/c from ED?: No Referrals: None,Stated [Primary Care Provider] - 1-2 days Sahil Gr MD [STAFF PHYSICIAN] - 1-2 days Time of Disposition: 23:40
[2024-05-09 22:01] LABS: Basophils % (A) 1 %; Eosinophils # (A) 0.1 k/uL (0-0.7); Eosinophils % (A) 2 %; HGB 12.9 gm/dL (11.4-16.0); Lymphocytes # (A) 1.8 k/uL (1.0-4.8); Lymphocytes % (A) 31 %; MCHC 34.8 g/dL (31.0-37.0); MCV 94.7 fL (80.0-100.0); Mean Platelet Volume 10.1; Monocytes # (A) 0.4 k/uL (0-1.0); Monocytes % (A) 7 %; Neutrophils # (A) 3.3 k/uL (1.3-7.7); Neutrophils % (A) 57 %; Platelet Count 166 k/uL (150-450); RBC 3.91 m/uL (3.80-5.40); RDW 12.7 % (11.5-15.5); WBC 5.9 k/uL (3.8-10.6)
--- NOTE | 2024-05-09 22:02 | XR ---
EXAMINATION TYPE: XR chest 2V DATE OF EXAM: 05/09/2024 9:58 PM CLINICAL INDICATION: Female, 28 years old with history of Chest Pain; [facility] COMPARISON: Chest radiographs from04/20/2023 TECHNIQUE: XR chest 2V Frontal view of the chest. FINDINGS: Lungs/Pleura: There is no evidence of pleural effusion, focal consolidation, or pneumothorax. Pulmonary vascularity: Unremarkable. Heart/mediastinum: Cardiomediastinal silhouette is unremarkable. Musculoskeletal: No acute osseous pathology. Other findings: None IMPRESSION: No acute cardiopulmonary disease/process.
[2024-05-09 22:11] LABS: Partial Thromboplastin Time 26.2 sec (22.0-30.0); Prothrombin Time 11.4 sec (10.0-12.5)
[2024-05-09 22:50] LABS: ALT 16 U/L (4-34); AST 25 U/L (14-36); African American GFR (CKD) >90 (>60 ml/min/1.73 sqM); Albumin 4.1 g/dL (3.5-5.0); Alkaline Phosphatase 32 U/L (38-126); Anion Gap 9 mmol/L; Blood Urea Nitrogen 13 mg/dL (7-17); Calcium 8.8 mg/dL (8.4-10.2); Carbon Dioxide 21 mmol/L (22-30); Chloride 111 mmol/L (98-107); Glucose 97 mg/dL (74-99); Magnesium 1.9 mg/dL (1.6-2.3); Non-African American GFR(CKD) >90 (>60 ml/min/1.73 sqM); Potassium 3.9 mmol/L (3.5-5.1); Sodium 141 mmol/L (137-145); Total Bilirubin 0.3 mg/dL (0.2-1.3); Total Protein 6.5 g/dL (6.3-8.2)
[2024-05-09] MEDS: ACETAMINOPHEN TAB 325 MG TAB PO STA (23:13)
[2024-05-10 00:37] VITALS: BP 110/83; PULSE 77; RESP 16
[2024-05-10] MEDS: MELATONIN 3 MG TABLET PO SCH (01:05)
== END 2024-05-10 01:00 | disposition home or self-care (01) ==
LOC: EC 21:18
CPT/HCPCS: 36415; 71046; 80053; 83735; 84484; 85025; 85610; 85730; 87636; 93005; 96361; 96374; 99285

== ENCOUNTER 2024-05-31 10:44 | Emergency (ER) | payer OTHER ==
[2024-05-31 10:49] VITALS: TEMP 98.1
--- NOTE | 2024-05-31 11:06 | ED ---
Back Pain HPI - General Chief Complaint: Back Pain/Injury Stated Complaint: Back pain Source: patient Limitations: no limitations - History of Present Illness Initial Comments: This is a 29-year-old female presenting for back pain x 2 days. Patient endorses waking this morning with middle right side back pain, states pain is worse with movement (7 out of 10) and breathing. Patient states pain at rest is 4 out of 10. Patient endorses history of scoliosis. Endorses use of ibuprofen with some pain relief. States she was seen at urgent care this morning with symptoms, was advised to refer to ER for mild epigastric tenderness. Patient denies significant epigastric/abdominal pain, states she has not eaten anything today. Patient denies paresthesia or radiculopathy in right upper or lower extremity. Denies saddle paresthesia, urinary retention or incontinence. MD Complaint: back pain - Related Data Previous Rx's Medication Instructions Recorded Hyoscyamine Sulfate [Levsin] 0.125 mg PO Q4-6H PRN #30 tab 12/10/23 Naproxen Sodium 550 mg PO BID PRN #20 tablet 12/10/23 Ondansetron Odt [Zofran Odt] 4 mg PO Q8HR PRN #20 tab 12/10/23 Ketorolac [Toradol] 10 mg PO Q6HR #15 tab 05/31/24 methocarbamoL [Robaxin] 500 mg PO TID PRN #15 tab 05/31/24 Allergies Allergy/AdvReac Type Severity Reaction Status Date / Time Iodinated Contrast Media Allergy Rash/Hives Verified 05/09/24 21:22 [Iodinated Contrast Media - IV Dye] tramadol HCl [From Ultram] Allergy Rash/Hives Verified 05/09/24 21:22 Review of Systems ROS Statement: Those systems with pertinent positive or pertinent negative responses have been documented in the HPI. ROS Other: All systems not noted in ROS Statement are negative. Past Medical History Past Medical History: No Reported History, Fibromyalgia Additional Past Medical History / Comment(s): migraines, chronic neck pain., fibromyalgia scolisis History of Any Multi-Drug Resistant Organisms: None Reported Date of last positivie culture/infection: unk MDRO Source:: unk Past Surgical History: Section, Ear Surgery, Tonsillectomy Additional Past Surgical History / Comment(s): arm tumor bx, tubes in and out of ears, D & C's, tubal ligation Past Anesthesia/Blood Transfusion Reactions: No Reported Reaction Past Psychological History: Anxiety, Bipolar, Depression Smoking Status: Current every day smoker, Vaper Past Alcohol Use History: None Reported Past Drug Use History: Methamphetamine - Past Family History Father Family Medical History: No Reported History General Exam Limitations: no limitations General appearance: alert, in no apparent distress Head exam: Present: atraumatic, normocephalic, normal inspection Eye exam: Present: normal appearance, PERRL, EOMI. Absent: scleral icterus, conjunctival injection, periorbital swelling ENT exam: Present: normal exam, mucous membranes moist Neck exam: Present: normal inspection. Absent: tenderness, meningismus, lymphadenopathy Respiratory exam: Present: normal lung sounds bilaterally. Absent: respiratory distress, wheezes, rales, rhonchi, stridor Cardiovascular Exam: Present: regular rate, normal rhythm, normal heart sounds. Absent: systolic murmur, diastolic murmur, rubs, gallop, clicks GI/Abdominal exam: Present: soft, normal bowel sounds. Absent: distended, tenderness, guarding, rebound, rigid Extremities exam: Present: normal inspection, full ROM, normal capillary refill. Absent: tenderness, pedal edema, joint swelling, calf tenderness Back exam: Present: normal inspection, tenderness (Positive T4 mid spinal tenderness without crepitus or step-off.), muscle spasm, paraspinal tenderness (Positive right paraspinal tenderness near L4 vertebrae with muscle spasm.), vertebral tenderness Neurological exam: Present: alert, oriented X3, CN II-XII intact Psychiatric exam: Present: normal affect, normal mood Skin exam: Present: warm, dry, intact, normal color. Absent: rash Course Vital Signs 05/31/24 05/31/24 10:45 12:04 Temperature 98.1 F Pulse Rate 83 74 Respiratory 16 18 Rate Blood Pressure 100/67 103/62 O2 Sat by Pulse 99 96 Oximetry Medical Decision Making - Medical Decision Making Was pt. sent in by a medical professional or institution (, PA, PORT ENGINEER, urgent care, hospital, or correction...) When possible be specific @ -No Did you speak to anyone other than the patient for history (EMS, parent, family, police, friend...)? What history was obtained from this source @ -No Did you review nursing and triage notes (agree or disagree)? Why? @ -I reviewed and agree with nursing and triage notes Were old charts reviewed (outside hosp., previous admission, EMS record, old EKG, old radiological studies, urgent care reports/EKG's, correction records)? Report findings @ -No old charts were reviewed Differential Diagnosis (chest pain, altered mental status, abdominal pain women, abdominal pain men, vaginal bleeding, weakness, fever, dyspnea, syncope, headache, dizziness, GI bleed, back pain, seizure, CVA, palpatations, mental health, musculoskeletal)? @ -Vertebral fracture, vertebral subluxation, muscle spasm, disc herniation, rib subluxation, pyelonephritis, nephrolithiasis, pancreatitis EKG interpreted by me (3pts min.). @ -Not done X-rays interpreted by me (1pt min.). @ -Thoracic spine x-ray showed no vertebral fracture or dislocation according to the radiologist CT interpreted by me (1pt min.). @ -None done U/S interpreted by me (1pt. min.). @ -None done What testing was considered but not performed or refused? (CT, X-rays, U/S, labs)? Why? @ -None What meds were considered but not given or refused? Why? @ -None Did you discuss the management of the patient with other professionals (professionals i.e. , PA, PORT ENGINEER, lab, RT, psych nurse, transition social worker, water treatment technician, teacher, neighborhood conservation officer, adult protective caseworker)? Give summary @ -No Was smoking cessation discussed for >3mins.? @ -No Was critical care preformed (if so, how long)? @ -No Were there social determinants of health that impacted care today? How? (Homelessness, low income, unemployed, alcoholism, drug addiction, transportation, low edu. Level, literacy, decrease access to med. care, half-way, rehab)? @ -No Was there de-escalation of care discussed even if they declined (Discuss DNR or withdrawal of care, Hospice)? DNR status @ -No What co-morbidities impacted this encounter? (DM, HTN, Smoking, COPD, CAD, Cancer, CVA, ARF, Chemo, Hep., AIDS, mental health diagnosis, sleep apnea, morbid obesity)? @ -None Was patient admitted / discharged? Hospital course, mention meds given and route, prescriptions, significant lab abnormalities, going to OR and other pertinent info. @ -Discharge. Thoracic spine x-ray performed. Patient provided Toradol and Norflex for pain. Patient notes some relief following medication. Ketorolac and Robaxin p.o. sent to pharmacy Undiagnosed new problem with uncertain prognosis? @ -No Drug Therapy requiring intensive monitoring for toxicity (Heparin, Nitro, Insulin, Cardizem)? @ -No Were any procedures done? @ -No Diagnosis/symptom? @ -Thoracic paraspinal muscle spasm, rhomboid muscle spasm Acute, or Chronic, or Acute on Chronic? @ -Acute Uncomplicated (without systemic symptoms) or Complicated (systemic symptoms)? @ -Uncomplicated Side effects of treatment? @ -No Exacerbation, Progression, or Severe Exacerbation? @ -No Poses a threat to life or bodily function? How? (Chest pain, [place], [place], pneumonia, PE, COPD, DKA, ARF, appy, cholecystitis, CVA, Diverticulitis, Homicidal, Suicidal, threat to staff... and all critical care pts) @ -No Disposition Clinical Impression: Thoracic back pain, Mechanical back pain Disposition: HOME SELF-CARE Condition: Good Instructions (If sedation given, give patient instructions): Acute Low Back Pain (ED) Prescriptions: methocarbamoL [Robaxin] 500 mg PO TID PRN #15 tab PRN Reason: muscle spasms Ketorolac [Toradol] 10 mg PO Q6HR #15 tab Is patient prescribed a controlled substance at d/c from ED?: No Referrals: Liz Ashby MD [Primary Care Provider] - 1-2 days Time of Disposition: 12:07
[2024-05-31] MEDS: KETOROLAC 15 MG/ML 1 ML VIAL IM STA (11:07)
[2024-05-31] MEDS: ORPHENADRINE 30 MG/ML 2 ML VIAL IM STA (11:07)
--- NOTE | 2024-05-31 12:01 | XR ---
EXAMINATION TYPE: XR thoracic spine complete DATE OF EXAM: 05/31/2024 CLINICAL HISTORY: pain TECHNIQUE: Frontal, lateral, and swimmer's view of thoracic spine are obtained. COMPARISON: None. FINDINGS: Thoracic spine show satisfactory alignment without evidence of acute fracture or dislocatio n. Vertebral body heights are preserved. Disc spaces are well preserved. Visualized ribs are unrem arkable. IMPRESSION: No acute fracture or dislocation is seen in the thoracic spine. ICD 10 NO FRACTURE, INIT IAL EVALUATION [facility], , 05/31/2024 11:58 AM
[2024-05-31 12:11] VITALS: BP 103/62; PULSE 74; RESP 18
== END 2024-05-31 12:15 | disposition home or self-care (01) ==
LOC: EC 10:44
CPT/HCPCS: 72072; 96372; 99283

== ENCOUNTER → 2024-07-20 | Outpatient (CLI) | payer OTHER ==
[2024-07-20 16:01] LABS: ALT 9 U/L (8-44); AST 19 U/L (13-35); Albumin 4.6 g/dL (3.8-4.9); Albumin/Globulin Ratio 2.09 Ratio (1.60-3.17); Alkaline Phosphatase 42 U/L (41-126); BUN/Creat Ratio 15.86 Ratio (12.00-20.00); Blood Urea Nitrogen 11.1 mg/dL (9.0-27.0); Calcium 9.3 mg/dL (8.7-10.3); Carbon Dioxide 23.2 mmol/L (21.6-31.8); Chloride 106 mmol/L (96-109); Chol/HDL Ratio 3.76 Ratio; Globulin 2.2 g/dL (1.6-3.3); Glucose 93 mg/dL (70-110); LDL Cholesterol,Calculated 157.7 mg/dL (0.0-131.0); Potassium 4.2 mmol/L (3.5-5.5); Sodium 140 mmol/L (135-145); Total Bilirubin 0.3 mg/dL (0.3-1.2); Total Protein 6.8 g/dL (6.2-8.2); Uric Acid 3.8 mg/dL (2.9-7.7); VLDL Calculation 17.84 mg/dL (5.00-40.00)
[2024-07-20 16:25] LABS: HCT 38.7 % (37.2-46.3); HGB 12.8 g/dL (12.0-15.0); MCH 30.8 pg (27.0-32.0); MCHC 33.1 g/dL (32.0-37.0); MCV 93.3 FL (80.0-97.0); NRBC Per 100 WBC 0 X 10*3/uL (0.00-0.01); Platelet Count 196 X 10*3/uL (140-440); RBC 4.15 X 10*6/uL (4.10-5.20); RDW 12.9 % (11.5-14.5); WBC 5.91 X 10*3/uL (4.50-10.00)
== END | disposition home or self-care (01) ==
LOC: LABWHC1 12:02
PROVIDERS: ATTEND Family Medicine
DX: Z00.00 Encounter for general adult medical examination without abnormal findings (principal); Z13.220 Encounter for screening for lipoid disorders; E55.9 Vitamin D deficiency, unspecified; E78.5 Hyperlipidemia, unspecified; R53.83 Other fatigue
CPT/HCPCS: 36415; 80053; 80061; 82306; 84439; 84443; 84550; 85027

== ENCOUNTER 2024-08-14 00:45 | Emergency (ER) | payer OTHER ==
[2024-08-14 00:51] VITALS: TEMP 98.4
[2024-08-14] MEDS: methylPREDNISolone SOD SUCCI 125 MG/2 ML VIAL IM ONE (01:45)
--- NOTE | 2024-08-14 01:51 | ED ---
General Adult HPI - General Chief complaint: ENT Stated complaint: chest pain Time Seen by Provider: 08/14/24 01:21 Source: patient, RN notes reviewed, old records reviewed Mode of arrival: ambulatory - History of Present Illness Initial comments: Patient is a 29-year-old female who presents emergency department after inhaling fumes of HCl and bleach. Was mixing cleaning chemicals when she accidentally inhaled some of it. Has a history of asthma and believes her asthma flared up. Has generalized chest tightness as well as sore throat. Symptoms are improving but presents for further evaluation at this time. This incident occurred shortly prior to arrival. He has no other significant past medical history. Presents for further evaluation. Denies any fevers, chills, cough. No issues with swallowing. - Related Data Previous Rx's Medication Instructions Recorded Hyoscyamine Sulfate [Levsin] 0.125 mg PO Q4-6H PRN #30 tab 12/10/23 Naproxen Sodium 550 mg PO BID PRN #20 tablet 12/10/23 Ondansetron Odt [Zofran Odt] 4 mg PO Q8HR PRN #20 tab 12/10/23 Ketorolac [Toradol] 10 mg PO Q6HR #15 tab 05/31/24 methocarbamoL [Robaxin] 500 mg PO TID PRN #15 tab 05/31/24 Albuterol Inhaler [Ventolin Hfa 2 puff INHALATION QID #8 gm 08/14/24 Inhaler] predniSONE [Deltasone] 40 mg PO DAILY 5 Days #10 tab 08/14/24 Allergies Allergy/AdvReac Type Severity Reaction Status Date / Time Iodinated Contrast Media Allergy Rash/Hives Verified 08/14/24 00:50 [Iodinated Contrast Media - IV Dye] tramadol HCl [From Ultram] Allergy Rash/Hives Verified 08/14/24 00:50 Review of Systems ROS Statement: Those systems with pertinent positive or pertinent negative responses have been documented in the HPI. Review of Systems: CONST: Denies fever EYES: Denies blurry vision ENT: Denies nasal congestion C/V: Endorses chest tightness RESP: Denies shortness of breath GI: Denies abdominal pain : Denies dysuria SKIN: Denies rash. MSK: Denies joint pain. NEURO: Denies headache ROS Other: All systems not noted in ROS Statement are negative. Past Medical History Past Medical History: No Reported History, Fibromyalgia Additional Past Medical History / Comment(s): migraines, chronic neck pain., fibromyalgia scolisis History of Any Multi-Drug Resistant Organisms: None Reported Date of last positivie culture/infection: unk MDRO Source:: unk Past Surgical History: Section, Ear Surgery, Tonsillectomy Additional Past Surgical History / Comment(s): arm tumor bx, tubes in and out of ears, D & C's, tubal ligation Past Anesthesia/Blood Transfusion Reactions: No Reported Reaction Past Psychological History: Anxiety, Bipolar, Depression Smoking Status: Current every day smoker, Vaper Past Alcohol Use History: None Reported Past Drug Use History: Methamphetamine - Past Family History Father Family Medical History: No Reported History General Exam - General Exam Comments Initial Comments: General: Appears in no acute distress. HEAD: Normal with no signs of head trauma. EYES: PERRLA, EOMI, conjunctiva normal, no discharge. ENT: Hearing grossly intact, normal oropharynx. No stridor auscultated. RESPIRATORY: End expiratory wheezing bilaterally. No significant hypoxia or increased work of breathing. No respiratory distress. C/V: Regular rate and rhythm. S1 and S2 auscultated, no edema, peripheral pulses 2+ and intact throughout ABD: Abd is soft, nontender, nondistended EXT: No obvious deformity. SKIN: No rashes or lesions observed on exposed skin. NEURO: Alert and oriented x 4. Course Vital Signs 08/14/24 08/14/24 08/14/24 00:47 03:00 03:19 Temperature 98.4 F Pulse Rate 78 66 102 H Respiratory 18 Rate Blood Pressure 116/78 O2 Sat by Pulse 99 Oximetry 08/14/24 03:22 Temperature Pulse Rate 98 Respiratory 16 Rate Blood Pressure 118/72 O2 Sat by Pulse 99 Oximetry Medical Decision Making - Medical Decision Making Was pt. sent in by a medical professional or institution (, PA, PHYSICAL CHEMISTRY PROFESSOR, urgent care, hospital, or penitentiary...) When possible be specific @ -No Did you speak to anyone other than the patient for history (EMS, parent, family, police, friend...)? What history was obtained from this source @ -No Did you review nursing and triage notes (agree or disagree)? Why? @ -I reviewed and agree with nursing and triage notes Were old charts reviewed (outside hosp., previous admission, EMS record, old EKG, old radiological studies, urgent care reports/EKG's, penitentiary records)? Report findings @ -No old charts were reviewed Differential Diagnosis (chest pain, altered mental status, abdominal pain women, abdominal pain men, vaginal bleeding, weakness, fever, dyspnea, syncope, headache, dizziness, GI bleed, back pain, seizure, CVA, palpatations, mental health, musculoskeletal)? @ -Throat irritation, chemical irritation, asthma exacerbation, pneumonia, pneumothorax. This list is not all inclusive. EKG interpreted by me (3pts min.). @ -As above X-rays interpreted by me (1pt min.). @ -Chest x-ray reveals no obvious acute cardiopulmonary process. CT interpreted by me (1pt min.). @ -None done U/S interpreted by me (1pt. min.). @ -None done What testing was considered but not performed or refused? (CT, X-rays, U/S, labs)? Why? @ -None What meds were considered but not given or refused? Why? @ -None Did you discuss the management of the patient with other professionals (professionals i.e. , PA, PHYSICAL CHEMISTRY PROFESSOR, lab, RT, psych nurse, social sciences department chair, communicable disease specialist, teacher, policy officer, corrections caseworker)? Give summary @ -No Was smoking cessation discussed for >3mins.? @ -No Was critical care preformed (if so, how long)? @ -No Were there social determinants of health that impacted care today? How? (Homelessness, low income, unemployed, alcoholism, drug addiction, transportation, low edu. Level, literacy, decrease access to med. care, half-way, rehab)? @ -No Was there de-escalation of care discussed even if they declined (Discuss DNR or withdrawal of care, Hospice)? DNR status @ -No What co-morbidities impacted this encounter? (DM, HTN, Smoking, COPD, CAD, Cancer, CVA, ARF, Chemo, Hep., AIDS, mental health diagnosis, sleep apnea, morbid obesity)? @ -Asthma Was patient admitted / discharged? Hospital course, mention meds given and route, prescriptions, significant lab abnormalities, going to OR and other pertinent info. @ -Patient presents with entailed irritation of the throat as well as lungs. Likely provoked an asthma exacerbation based on exam. Patient appears in no acute distress and vitals are within acceptable limits. We will obtain screening EKG as well as chest x-ray and provide the patient with a dose of steroids as well as breathing treatment. She was in agreement this plan. EKG shows no signs of acute ischemia. Chest x-ray reveals no obvious acute cardiopulmonary process. On reevaluation, wheezing is improved. Patient is feeling improved. She will be discharged home at this time. Recommended avoiding these caustic chemicals. Return if worsening symptoms. She was observed for multiple hours and vitals are within acceptable limits. She was in agreement this plan. I will provide the patient with a prescription for prednisone, albuterol inhaler. I instructed the patient to follow up with their PCP in the next 1-3 days.. I explained that the patient should return to the emergency department if they experience any worsening symptoms. Strict return precautions were discussed with the patient. The patient expressed understanding of these instructions. I answered all questions that the patient had. The patient was discharged home in good condition with their prescriptions and follow up information. Undiagnosed new problem with uncertain prognosis? @ -No Drug Therapy requiring intensive monitoring for toxicity (Heparin, Nitro, Insulin, Cardizem)? @ -No Were any procedures done? @ -No Diagnosis/symptom? @ -Chemical irritation, asthma Acute, or Chronic, or Acute on Chronic? @ -Acute Uncomplicated (without systemic symptoms) or Complicated (systemic symptoms)? @ -Complicated Side effects of treatment? @ -None Exacerbation, Progression, or Severe Exacerbation] @ -No Poses a threat to life or bodily function? @ -Unlikely at this time - EKG Data -: EKG Interpreted by Me EKG Comments: 12-lead Electrocardiogram Interpretation Note EKG was reviewed and interpreted by myself. 12-lead ECG performed at 0138 is interpreted by me as revealing normal sinus rhythm at a rate of 81 beats per minute. Fonda is normal. IA interval is 152 ms, QRS duration is 89 ms, QTc is 406 ms.. There were no ST or T wave abnormalities to suggest myocardial ischemia or injury. R wave progression across the precordium was satisfactory. By my interpretation this EKG is non-diagnostic for acute ischemia. Disposition Clinical Impression: Exposure to chemical irritant, Asthma Disposition: HOME SELF-CARE Condition: Good Instructions (If sedation given, give patient instructions): Asthma (ED) Prescriptions: predniSONE [Deltasone] 40 mg PO DAILY 5 Days #10 tab Albuterol Inhaler [Ventolin Hfa Inhaler] 2 puff INHALATION QID #8 gm Is patient prescribed a controlled substance at d/c from ED?: No Referrals: Samson Tripp MD [Primary Care Provider] - 1-2 days Time of Disposition: 03:46
--- NOTE | 2024-08-14 01:58 | XR ---
EXAMINATION TYPE: XR chest 2V DATE OF EXAM: 08/14/2024 1:54 AM COMPARISON: Chest x-ray May 09, 2024 CLINICAL INDICATION: Female, 29 years old with history of cough, TECHNIQUE: Frontal and lateral views of the chest are obtained. FINDINGS: Overlying bra strap and EKG leads are redemonstrated. There is no focal air space opacity, pleural effusion, or pneumothorax seen. The cardiac silhouette size is stable and within normal limi ts. The osseous structures are intact. IMPRESSION: No acute cardiopulmonary process. [facility], , 08/14/2024 1:56 AM
[2024-08-14] MEDS: IPRATROPIUM-ALBUTEROL 3 ML NEB INHALATION STA (02:59)
[2024-08-14 03:23] VITALS: BP 118/72; PULSE 98; RESP 16
== END 2024-08-14 03:54 | disposition home or self-care (01) ==
LOC: EC 00:45
DX: J45.909 Unspecified asthma, uncomplicated (principal); L24.5 Irritant contact dermatitis due to other chemical products; F17.290 Nicotine dependence, other tobacco product, uncomplicated; Z91.041 Radiographic dye allergy status; Z88.8 Allergy status to other drugs, medicaments and biological substances
CPT/HCPCS: 94640; 93005; 71046; 99285; 96372; J2919

== ENCOUNTER 2024-08-15 18:42 | Emergency (ER) | payer OTHER ==
--- NOTE | 2024-08-15 19:07 | ED ---
Burn/Smoke HPI - General Source: patient, RN notes reviewed Mode of arrival: ambulatory Limitations: no limitations - History of Present Illness MD Complaint: chemical exposure Onset/Timin -: days(s) Type of Exposure: chemical <Anthony Villalobos - Last Filed: 08/15/24 19:05> <Xiomara Henson - Last Filed: 08/16/24 00:25> - General Stated complaint: SOB Time Seen by Provider: 08/15/24 18:56 - History of Present Illness Initial comments: Quick note: This is a 29-year-old female presenting for ongoing pulmonary issues following inhalation of HCl and bleach yesterday. Patient was seen in this ER for chemical inhalation, prescribed steroids and inhaler at that time. Patient endorses use of both but now is complaining of blood-tinged phlegm when coughing, shortness of breath and mid/lower chest pain (02/08). (WilfredoAnthony) 29-year-old female who presents to the emergency department after chemical inhalation. Patient was seen yesterday in the emergency department for same complaint. She mixed bleach and ammonia while cleaning her bathroom 2 days ago. She was having some shortness of breath and therefore presented to the ER yesterday. She does have asthma. Chest x-ray was performed which demonstrated no acute process. Patient was prescribed a steroid. She has been taking this in addition to using her inhaler. States that she has felt more short of breath today and she is now coughing up blood. States that streaked in with her sputum. She denies history of DVT or PE. No chest pain. Admits nausea without vomiting. No concern for . She denies history of blood clotting disorders. No fevers. No other alleviating, precipitating or modifying factors (Xiomara Henson) - Related Data Previous Rx's Medication Instructions Recorded Hyoscyamine Sulfate [Levsin] 0.125 mg PO Q4-6H PRN #30 tab 12/10/23 Naproxen Sodium 550 mg PO BID PRN #20 tablet 12/10/23 Ondansetron Odt [Zofran Odt] 4 mg PO Q8HR PRN #20 tab 12/10/23 Ketorolac [Toradol] 10 mg PO Q6HR #15 tab 05/31/24 methocarbamoL [Robaxin] 500 mg PO TID PRN #15 tab 05/31/24 Albuterol Inhaler [Ventolin Hfa 2 puff INHALATION QID #8 gm 08/14/24 Inhaler] predniSONE [Deltasone] 40 mg PO DAILY 5 Days #10 tab 08/14/24 Albuterol Nebulized [Ventolin 2.5 mg INHALATION Q4H PRN #75 ml 08/15/24 Nebulized] Allergies Allergy/AdvReac Type Severity Reaction Status Date / Time Iodinated Contrast Media Allergy Rash/Hives Verified 08/15/24 19:05 [Iodinated Contrast Media - IV Dye] tramadol HCl [From Ultram] Allergy Rash/Hives Verified 08/15/24 19:05 Review of Systems ROS Other: All systems not noted in ROS Statement are negative. <Anthony Villalobos - Last Filed: 08/15/24 19:05> ROS Other: All systems not noted in ROS Statement are negative. <Xiomara Henson - Last Filed: 08/16/24 00:25> ROS Statement: Those systems with pertinent positive or pertinent negative responses have been documented in the HPI. Past Medical History Past Medical History: No Reported History, Fibromyalgia Additional Past Medical History / Comment(s): migraines, chronic neck pain., fibromyalgia scolisis History of Any Multi-Drug Resistant Organisms: None Reported Date of last positivie culture/infection: unk MDRO Source:: unk Past Surgical History: Section, Ear Surgery, Tonsillectomy Additional Past Surgical History / Comment(s): arm tumor bx, tubes in and out of ears, D & C's, tubal ligation Past Anesthesia/Blood Transfusion Reactions: No Reported Reaction Past Psychological History: Anxiety, Bipolar, Depression Smoking Status: Current every day smoker, Vaper Past Alcohol Use History: None Reported Past Drug Use History: Methamphetamine - Past Family History Father Family Medical History: No Reported History <Anthony Villalobos - Last Filed: 08/15/24 19:05> General Exam <Anthony Villalobos - Last Filed: 08/15/24 19:05> General appearance: alert, in no apparent distress Head exam: Present: atraumatic, normocephalic, normal inspection Eye exam: Present: normal appearance, PERRL, EOMI. Absent: scleral icterus, conjunctival injection, periorbital swelling ENT exam: Present: normal exam, mucous membranes moist Neck exam: Present: normal inspection. Absent: tenderness, meningismus, lymphadenopathy Respiratory exam: Present: normal lung sounds bilaterally. Absent: respiratory distress, wheezes, rales, rhonchi, stridor Cardiovascular Exam: Present: regular rate, normal rhythm, normal heart sounds. Absent: systolic murmur, diastolic murmur, rubs, gallop, clicks GI/Abdominal exam: Present: soft, normal bowel sounds. Absent: distended, tenderness, guarding, rebound, rigid Extremities exam: Present: normal inspection, full ROM, normal capillary refill. Absent: tenderness, pedal edema, joint swelling, calf tenderness Back exam: Present: normal inspection Neurological exam: Present: alert, oriented X3, CN II-XII intact Psychiatric exam: Present: normal affect, normal mood Skin exam: Present: warm, dry, intact, normal color. Absent: rash <Xiomara Henson - Last Filed: 08/16/24 00:25> - General Exam Comments Initial Comments: Visual Physical Exam Vital signs reviewed General: Well-appearing, nontoxic, no acute distress. Head: Normocephalic, atraumatic Eyes: PERRLA, EOMI ENT: Airway patent Chest: Nonlabored breathing Skin: No visual rash, normal skin tone Neuro: Alert and oriented 3 Musculoskeletal: No gross abnormalities (Anthony Villalobos) Course Vital Signs 08/15/24 08/15/24 19:06 22:59 Temperature 98.9 F 98.8 F Pulse Rate 112 H 83 Respiratory 20 17 Rate Blood Pressure 99/67 106/72 O2 Sat by Pulse 98 99 Oximetry Medical Decision Making <Anthony Villalobos - Last Filed: 08/15/24 19:05> - Lab Data Result diagrams: 08/15/24 19:58 08/15/24 19:58 <Xiomara Henson - Last Filed: 08/16/24 00:25> - Medical Decision Making I completed the quick note portion of this chart signed HORTENCIA Morgan (Anthony Villalobos) Was pt. sent in by a medical professional or institution ([facility], LEAD GENERATION REPRESENTATIVE, urgent care, hospital, or jail...) When possible be specific @ -No Did you speak to anyone other than the patient for history (EMS, parent, family, police, friend...)? What history was obtained from this source @ -Spoke with the boyfriend for history Did you review nursing and triage notes (agree or disagree)? Why? @ -I reviewed and agree with nursing and triage notes Were old charts reviewed (outside hosp., previous admission, EMS record, old EK G, old radiological studies, urgent care reports/EKG's, jail records)? Report findings @ -I reviewed the patient's chart from yesterday. Patient had chest x-ray completed by Dr. Montoya Differential Diagnosis (chest pain, altered mental status, abdominal pain women, abdominal pain men, vaginal bleeding, weakness, fever, dyspnea, syncope, headache, dizziness, GI bleed, back pain, seizure, CVA, palpatations, mental health, musculoskeletal)? @ -Differential Dyspnea: Coronary syndrome, arrhythmia, tamponade, asthma, COPD, pulmonary embolism, pneumonia, pneumothorax, pulmonary effusion, anaphylaxis, diabetic ketoacidosis, flailed chest, pulmonary contusion, diaphragmatic rupture, anemia, neuromuscular, this is not meant to be an all-inclusive list. EKG interpreted by me (3pts min.). @ -Yes and demonstrates sinus tachycardia with a rate of 101. GA interval 149. QRS 85. QTc of 384. No acute ST segment elevations or depressions X-rays interpreted by me (1pt min.). @ -Yes and demonstrates no acute process CT interpreted by me (1pt min.). @ -Yes and demonstrates no acute process U/S interpreted by me (1pt. min.). @ -None done What testing was considered but not performed or refused? (CT, X-rays, U/S, labs)? Why? @ -None What meds were considered but not given or refused? Why? @ -None Did you discuss the management of the patient with other professionals (meli davila i.e. , PA, LEAD GENERATION REPRESENTATIVE, lab, RT, psych nurse, social media intern, ice delivery driver, teacher, evp chief exploration officer, telephonic nurse case manager)? Give summary @ -No Was smoking cessation discussed for >3mins.? @ -No Was critical care preformed (if so, how long)? @ -No Were there social determinants of health that impacted care today? How? (Homelessness, low income, unemployed, alcoholism, drug addiction, transportation, low edu. Level, literacy, decrease access to med. care, senior care, rehab)? @ -No Was there de-escalation of care discussed even if they declined (Discuss DNR or withdrawal of care, Hospice)? DNR status @ -No What co-morbidities impacted this encounter? (DM, HTN, Smoking, COPD, CAD, Cancer, CVA, ARF, Chemo, Hep., AIDS, mental health diagnosis, sleep apnea, morbid obesity)? @ -Asthma Was patient admitted / discharged? Hospital course, mention meds given and route, prescriptions, significant lab abnormalities, going to OR and other pertinent info. @ -Upon arrival patient seen and evaluated in bed 18. Thorough history and physical exam was performed. IV access was established. Laboratory studies are conducted. Chest x-ray was ordered. Results are discussed with the patient. Due to her report of hemoptysis with tachycardia I did order a CT of the patient's chest. She does have an iodine contrast allergy and therefore patient is given Benadryl, Pepcid and Solu-Medrol before going over. Patient then has CT performed which demonstrates no acute process. I did discuss results with the patient. Reported limited treatment options. I offered to write the patient a prescription for nebulizer as these treatments may help the patient better with her breathing. Albuterol nebulizer was called into the pharmacy. Patient is to continue her steroids. Follow-up with her doctor in 2 to 4 days and return for any new or worsening symptoms. Patient agreeable plan was discharged in stable condition Undiagnosed new problem with uncertain prognosis? @ -No Drug Therapy requiring intensive monitoring for toxicity (Heparin, Nitro, Insulin, Cardizem)? @ -No Were any procedures done? @ -No Diagnosis/symptom? @ -Acute hemoptysis, acute chemical inhalation Acute, or Chronic, or Acute on Chronic? @ -Acute Uncomplicated (without systemic symptoms) or Complicated (systemic symptoms)? @ -Complicated Side effects of treatment? @ -No Exacerbation, Progression, or Severe Exacerbation? @ -No Poses a threat to life or bodily function? How? (Chest pain, [place], [place], pneumonia, PE, COPD, DKA, ARF, appy, cholecystitis, CVA, Diverticulitis, Homicidal, Suicidal, threat to staff... and all critical care pts) @ -No (Xiomara Henson) - Lab Data Lab Results 08/15/24 08/15/24 08/15/24 Range/Units 19:58 19:58 19:58 WBC 11.1 H (3.8-10.6) k/uL RBC 3.87 (3.80-5.40) m/uL Hgb 12.0 (11.4-16.0) gm/dL Hct 36.9 (34.0-46.0) % MCV 95.5 (80.0-100.0) fL MCH 31.1 (25.0-35.0) pg MCHC 32.5 (31.0-37.0) g/dL RDW 12.9 (11.5-15.5) % Plt Count 190 (150-450) k/uL MPV 10.3 Neutrophils % 92 % Lymphocytes % 5 % Monocytes % 2 % Eosinophils % 0 % Basophils % 0 % Neutrophils # 10.2 H (1.3-7.7) k/uL Lymphocytes # 0.6 L (1.0-4.8) k/uL Monocytes # 0.2 (0-1.0) k/uL Eosinophils # 0.0 (0-0.7) k/uL Basophils # 0.0 (0-0.2) k/uL Hypochromasia Slight PT 11.2 (10.0-12.5) sec INR 1.0 (<1.2) APTT 22.8 (22.0-30.0) sec VBG pH (7.31-7.41) VBG pCO2 (37-51) mmHg VBG HCO3 (24-28) mmol/L Sodium 138 (137-145) mmol/L Potassium 4.3 (3.5-5.1) mmol/L Chloride 108 H (98-107) mmol/L Carbon Dioxide 23 (22-30) mmol/L Anion Gap 7 mmol/L BUN 14 (7-17) mg/dL Creatinine 0.60 (0.52-1.04) mg/dL Est GFR (CKD-EPI)AfAm >90 (>60 ml/min/1.73 sqM) Est GFR (CKD-EPI)NonAf >90 (>60 ml/min/1.73 sqM) Glucose 264 H (74-99) mg/dL Lactic Ac Sepsis Rflx Plasma Lactic Acid Cortez (0.7-2.0) mmol/L Calcium 9.1 (8.4-10.2) mg/dL Total Bilirubin 0.1 L (0.2-1.3) mg/dL AST 18 (14-36) U/L ALT 13 (4-34) U/L Alkaline Phosphatase 31 L (38-126) U/L Total Protein 6.4 (6.3-8.2) g/dL Albumin 4.4 (3.5-5.0) g/dL Influenza Type A (PCR) (Not Detectd) Influenza Type B (PCR) (Not Detectd) RSV (PCR) (Not Detectd) SARS-CoV-2 (PCR) (Not Detectd) 08/15/24 08/15/24 08/15/24 Range/Units 19:58 19:58 19:58 WBC (3.8-10.6) k/uL RBC (3.80-5.40) m/uL Hgb (11.4-16.0) gm/dL Hct (34.0-46.0) % MCV (80.0-100.0) fL MCH (25.0-35.0) pg MCHC (31.0-37.0) g/dL RDW (11.5-15.5) % Plt Count (150-450) k/uL MPV Neutrophils % % Lymphocytes % % Monocytes % % Eosinophils % % Basophils % % Neutrophils # (1.3-7.7) k/uL Lymphocytes # (1.0-4.8) k/uL Monocytes # (0-1.0) k/uL Eosinophils # (0-0.7) k/uL Basophils # (0-0.2) k/uL Hypochromasia PT (10.0-12.5) sec INR (<1.2) APTT (22.0-30.0) sec VBG pH 7.33 (7.31-7.41) VBG pCO2 42 (37-51) mmHg VBG HCO3 22 L (24-28) mmol/L Sodium (137-145) mmol/L Potassium (3.5-5.1) mmol/L Chloride (98-107) mmol/L Carbon Dioxide (22-30) mmol/L Anion Gap mmol/L BUN (7-17) mg/dL Creatinine (0.52-1.04) mg/dL Est GFR (CKD-EPI)AfAm (>60 ml/min/1.73 sqM) Est GFR (CKD-EPI)NonAf (>60 ml/min/1.73 sqM) Glucose (74-99) mg/dL Lactic Ac Sepsis Rflx Plasma Lactic Acid Cortez 3.2 H* (0.7-2.0) mmol/L Calcium (8.4-10.2) mg/dL Total Bilirubin (0.2-1.3) mg/dL AST (14-36) U/L ALT (4-34) U/L Alkaline Phosphatase (38-126) U/L Total Protein (6.3-8.2) g/dL Albumin (3.5-5.0) g/dL Influenza Type A (PCR) Not Detected (Not Detectd) Influenza Type B (PCR) Not Detected (Not Detectd) RSV (PCR) Not Detected (Not Detectd) SARS-CoV-2 (PCR) Not Detected (Not Detectd) 08/15/24 08/15/24 Range/Units 20:36 22:30 WBC (3.8-10.6) k/uL RBC (3.80-5.40) m/uL Hgb (11.4-16.0) gm/dL Hct (34.0-46.0) % MCV (80.0-100.0) fL MCH (25.0-35.0) pg MCHC (31.0-37.0) g/dL RDW (11.5-15.5) % Plt Count (150-450) k/uL MPV Neutrophils % % Lymphocytes % % Monocytes % % Eosinophils % % Basophils % % Neutrophils # (1.3-7.7) k/uL Lymphocytes # (1.0-4.8) k/uL Monocytes # (0-1.0) k/uL Eosinophils # (0-0.7) k/uL Basophils # (0-0.2) k/uL Hypochromasia PT (10.0-12.5) sec INR (<1.2) APTT (22.0-30.0) sec VBG pH (7.31-7.41) VBG pCO2 (37-51) mmHg VBG HCO3 (24-28) mmol/L Sodium (137-145) mmol/L Potassium (3.5-5.1) mmol/L Chloride (98-107) mmol/L Carbon Dioxide (22-30) mmol/L Anion Gap mmol/L BUN (7-17) mg/dL Creatinine (0.52-1.04) mg/dL Est GFR (CKD-EPI)AfAm (>60 ml/min/1.73 sqM) Est GFR (CKD-EPI)NonAf (>60 ml/min/1.73 sqM) Glucose (74-99) mg/dL Lactic Ac Sepsis Rflx Y Plasma Lactic Acid Cortez 1.9 (0.7-2.0) mmol/L Calcium (8.4-10.2) mg/dL Total Bilirubin (0.2-1.3) mg/dL AST (14-36) U/L ALT (4-34) U/L Alkaline Phosphatase (38-126) U/L Total Protein (6.3-8.2) g/dL Albumin (3.5-5.0) g/dL Influenza Type A (PCR) (Not Detectd) Influenza Type B (PCR) (Not Detectd) RSV (PCR) (Not Detectd) SARS-CoV-2 (PCR) (Not Detectd) Disposition <Anthony Villalobos - Last Filed: 08/15/24 19:05> Is patient prescribed a controlled substance at d/c from ED?: No Time of Disposition: 22:47 <Xiomara Henson - Last Filed: 08/16/24 00:25> Clinical Impression: Exposure to chemical irritant, Asthma, Hemoptysis Disposition: HOME SELF-CARE Condition: Stable Instructions (If sedation given, give patient instructions): Reactive Airways Disease (ED) Additional Instructions: Please try to fill the prescription for the nebulizer. The albuterol will be at the pharmacy. Use of breathing treatments every 4 hours. Continue taking the steroids. Return for any new or worsening symptoms Prescriptions: Albuterol Nebulized [Ventolin Nebulized] 2.5 mg INHALATION Q4H PRN #75 ml PRN Reason: difficulty in breathing Referrals: Samson Tripp MD [Primary Care Provider] - 1-2 days
[2024-08-15 20:10] LABS: Basophils % (A) 0 %; Eosinophils % (A) 0 %; HCT 36.9 % (34.0-46.0); Hypochromasia Slight; Lymphocytes # (A) 0.6 k/uL (1.0-4.8); Lymphocytes % (A) 5 %; MCH 31.1 pg (25.0-35.0); MCHC 32.5 g/dL (31.0-37.0); MCV 95.5 fL (80.0-100.0); Mean Platelet Volume 10.3; Monocytes # (A) 0.2 k/uL (0-1.0); Monocytes % (A) 2 %; Neutrophils # (A) 10.2 k/uL (1.3-7.7); Neutrophils % (A) 92 %; Platelet Count 190 k/uL (150-450); RBC 3.87 m/uL (3.80-5.40); RDW 12.9 % (11.5-15.5); WBC 11.1 k/uL (3.8-10.6)
[2024-08-15 20:16] LABS: VBG PH 7.33 (7.31-7.41)
[2024-08-15 20:21] LABS: Partial Thromboplastin Time 22.8 sec (22.0-30.0); Prothrombin Time 11.2 sec (10.0-12.5)
--- NOTE | 2024-08-15 20:22 | XR ---
EXAMINATION TYPE: XR chest 2V DATE OF EXAM: 08/15/2024 7:43 PM COMPARISON: 08/14/2024 CLINICAL INDICATION: Female, 29 years old with history of Hemoptysis following chemical inhalation, TECHNIQUE: XR chest 2V view(s) obtained. FINDINGS: The heart size is normal. The pulmonary vasculature is normal. The lungs are clear. IMPRESSION: 1. No acute pulmonary process radiographically apparent. [facility], Workstation: [facility], 08/15/2024 8:20 PM
[2024-08-15 20:28] LABS: ALT 13 U/L (4-34); AST 18 U/L (14-36); African American GFR (CKD) >90 (>60 ml/min/1.73 sqM); Albumin 4.4 g/dL (3.5-5.0); Alkaline Phosphatase 31 U/L (38-126); Anion Gap 7 mmol/L; Blood Urea Nitrogen 14 mg/dL (7-17); Calcium 9.1 mg/dL (8.4-10.2); Carbon Dioxide 23 mmol/L (22-30); Chloride 108 mmol/L (98-107); Glucose 264 mg/dL (74-99); Non-African American GFR(CKD) >90 (>60 ml/min/1.73 sqM); Potassium 4.3 mmol/L (3.5-5.1); Sodium 138 mmol/L (137-145); Total Bilirubin 0.1 mg/dL (0.2-1.3); Total Protein 6.4 g/dL (6.3-8.2)
[2024-08-15] MEDS: SODIUM CHLORIDE 0.9% 1,000 ML IV STA (21:12)
[2024-08-15] MEDS: FAMOTIDINE 20 MG/2 ML VIAL IV STA (21:13)
[2024-08-15] MEDS: diphenhydrAMINE 50 MG/ML 1 ML VIAL IVP STA (21:16)
[2024-08-15] MEDS: methylPREDNISolone SOD SUCCI 125 MG/2 ML VIAL IV STA (21:19)
--- NOTE | 2024-08-15 22:19 | CT ---
EXAMINATION TYPE: CT chest angio for PE DATE OF EXAM: 08/15/2024 9:43 PM COMPARISON: None. CLINICAL INDICATION: Female, 29 years old with history of hemoptysis, Pt to ED after mixing bleach an d ammonia at home while cleaning two days ago. Pt reports she now has blood and phlegm coming up, an d is SOB with cough. Using neb tx and inhalers and taking PO steroids at home. TECHNIQUE: CT of the chest is performed on a spiral scan at 2 mm thick sections. Study is performed with intravenous contrast timed for evaluation for pulmonary embolism. This will limit additional po rtions of the evaluation. 3-D MIP images reconstructed by the technologist are reviewed on the compu ter in the coronal and sagittal planes. Contrast used:63mL mL of Isovue 370 with IV Contrast, (none if empty) Oral contrast used: (none if empty) CT DLP: 248.5 mGycm, Automated exposure control for dose reduction was used. FINDINGS: No persistent filling defects are evident to suggest an acute pulmonary embolism. No mediastinal or hilar adenopathy enlarged by CT criteria is evident. The ascending aorta diameter at the level of the main pulmonary artery is 3.0 cm. The main pulmonary artery diameter at the bifurcation is 2.9 cm. Lung windows are clear. Tracheobronchial tree as visualized appears normal. Pulmonary edema does not appear to be present at this time Limited CT sections were through the upper abdomen. Upper abdomen appears unremarkable. IMPRESSION: 1. No acute pulmonary embolism radiographically apparent. [facility], Workstation: [facility], 08/15/2024 10:17 PM
[2024-08-15] MEDS: ACET/COD 300 MG/30 MG STARTER PACK 6 TAB BTL PO STA (22:58)
[2024-08-15 23:03] VITALS: BP 106/72; PULSE 83; RESP 17; TEMP 98.8
== END 2024-08-15 23:03 | disposition home or self-care (01) ==
LOC: EC 18:42
DX: J45.909 Unspecified asthma, uncomplicated (principal); R04.2 Hemoptysis; Z77.098 Contact with and (suspected) exposure to other hazardous, chiefly nonmedicinal, chemicals; F17.290 Nicotine dependence, other tobacco product, uncomplicated; Z91.041 Radiographic dye allergy status; Z88.8 Allergy status to other drugs, medicaments and biological substances
CPT/HCPCS: 36415; 93005; 80053; 82803; 83605; 85025; 85610; 85730; 87636; 71046; 71275; 99285; 96374; 96375 ×2; 96361; J1200; J3490; Q9967; J2919

== ENCOUNTER 2025-03-03 19:44 | Emergency (ER) | payer OTHER ==
[2025-03-03 19:48] VITALS: BP 137/102; PULSE 95; RESP 18; TEMP 98
--- NOTE | 2025-03-03 19:56 | ED ---
Fall HPI - General Source: patient Mode of arrival: ambulatory <Danitza Nagel - Last Filed: 03/03/25 19:53> <Benjy Harris - Last Filed: 03/15/25 06:43> - General Chief Complaint: Fall Stated Complaint: Fall-Back pain Time Seen by Provider: 03/03/25 19:53 - History of Present Illness Initial Comments: Quick [id number] female presenting for right shoulder injury status post mechanical fall in shower prior to arrival. States she slipped and fell twice however denies hitting her head or losing consciousness. Endorses right should er pain, upper back pain, and left lower leg pain. (Danitza Nagel) I saw the patient following completion x-rays, and at this point she states that her other pains have decreased but she is still complaining of pain in the right shoulder she indicates the area just medial to the right AC joint. (Benjy Harris) - Related Data Previous Rx's Medication Instructions Recorded Hyoscyamine Sulfate [Levsin] 0.125 mg PO Q4-6H PRN #30 tab 12/10/23 Naproxen Sodium 550 mg PO BID PRN #20 tablet 12/10/23 Ondansetron Odt [Zofran Odt] 4 mg PO Q8HR PRN #20 tab 12/10/23 Ketorolac [Toradol] 10 mg PO Q6HR #15 tab 05/31/24 methocarbamoL [Robaxin] 500 mg PO TID PRN #15 tab 05/31/24 Albuterol Inhaler [Ventolin Hfa 2 puff INHALATION QID #8 gm 08/14/24 Inhaler] predniSONE [Deltasone] 40 mg PO DAILY 5 Days #10 tab 08/14/24 Albuterol Nebulized [Ventolin 2.5 mg INHALATION Q4H PRN #75 ml 08/15/24 Nebulized] Allergies Allergy/AdvReac Type Severity Reaction Status Date / Time Iodinated Contrast Media Allergy Rash/Hives Verified 03/03/25 19:48 [Iodinated Contrast Media - IV Dye] tramadol HCl [From Ultram] Allergy Rash/Hives Verified 03/03/25 19:48 Review of Systems ROS Other: All systems not noted in ROS Statement are negative. <Danitza Nagel - Last Filed: 03/03/25 19:53> ROS Other: All systems not noted in ROS Statement are negative. <StevenBenjy - Last Filed: 03/15/25 06:43> ROS Statement: Those systems with pertinent positive or pertinent negative responses have been documented in the HPI. Past Medical History Past Medical History: No Reported History, Fibromyalgia Additional Past Medical History / Comment(s): migraines, chronic neck pain., fibromyalgia scolisis History of Any Multi-Drug Resistant Organisms: None Reported Date of last positivie culture/infection: unk MDRO Source:: unk Past Surgical History: Section, Ear Surgery, Tonsillectomy Additional Past Surgical History / Comment(s): arm tumor bx, tubes in and out of ears, D & C's, tubal ligation Past Anesthesia/Blood Transfusion Reactions: No Reported Reaction Past Psychological History: Anxiety, Bipolar, Depression Smoking Status: Current every day smoker, Vaper Past Alcohol Use History: None Reported Past Drug Use History: Methamphetamine - Past Family History Father Family Medical History: No Reported History <Danitza Nagel - Last Filed: 03/03/25 19:53> General Exam Limitations: no limitations <Danitza Nagel - Last Filed: 03/03/25 19:53> General appearance: alert, in no apparent distress Head exam: Present: atraumatic, normocephalic Eye exam: Present: normal appearance Neck exam: Present: normal inspection, full ROM. Absent: tenderness Extremities exam: Present: normal inspection, full ROM, tenderness (Over the distal clavicle and also over the proximal humerus on the right side. There is no appreciable deformity. Minimal soft tissue swelling.), normal capillary refill Back exam: Present: normal inspection, full ROM. Absent: paraspinal tenderness, vertebral tenderness Neurological exam: Present: alert, normal gait. Absent: motor sensory deficit Skin exam: Present: warm, dry, intact, normal color. Absent: rash <StevenBenjy - Last Filed: 03/15/25 06:43> - General Exam Comments Initial Comments: Visual Physical Exam Vital signs reviewed General: Well-appearing, nontoxic, no acute distress. Head: Normocephalic, atraumatic Eyes: PERRLA, EOMI ENT: Airway patent Chest: Nonlabored breathing Skin: No visual rash, normal skin tone Neuro: Alert and oriented 3 Musculoskeletal: No gross abnormalities (Danitza Nagel) Course Vital Signs 03/03/25 19:45 Temperature 98 F Pulse Rate 95 Respiratory 18 Rate Blood Pressure 137/102 O2 Sat by Pulse 97 Oximetry Medical Decision Making <NagelIvyDanitza - Last Filed: 03/03/25 19:53> <Benjy Harris - Last Filed: 03/15/25 06:43> - Medical Decision Making I completed the quick note portion of this chart signed Danitza Nagel PA-C (Danitza Nagel) The patient had tib-fib x-ray that I interpreted as negative for acute fracture or dislocation. The patient had shoulder x-ray that I interpreted as negative for fracture or dislocation The patient had chest x-ray that I interpreted as negative for acute bony injury, negative for pneumothorax or infiltrate. Was pt. sent in by a medical professional or institution (Dr. PA, FINANCIAL HEALTH COUNSELOR, urgent care, hospital, or correction...) When possible be specific @ -[No] Did you speak to anyone other than the patient for history (EMS, parent, family, police, friend...)? What history was obtained from this source @ -[No] Did you review nursing and triage notes (agree or disagree)? Why? @ -[I reviewed and agree with nursing and triage notes] Were old charts reviewed (outside hosp., previous admission, EMS record, old EKG, old radiological studies, urgent care reports/EKG's, correction records)? Report findings @ -[No old charts were reviewed] Differential Diagnosis (chest pain, altered mental status, abdominal pain women, abdominal pain men, vaginal bleeding, weakness, fever, dyspnea, syncope, headache, dizziness, GI bleed, back pain, seizure, CVA, palpatations, mental health, musculoskeletal)? @ -[Differential Musculoskeletal Muscular strain, contusion, ligament sprain, fracture, arthritis, septic arthritis, bursitis, cellulitis, muscle spasm, nerve compression, DVT, arterial occlusion, herpes zoster, electrolyte abnormality, tumor.... This is not meant to be in all inclusive list EKG interpreted by me (3pts min.). @ -[As above] X-rays interpreted by me (1pt min.). @ -I interpreted as above CT interpreted by me (1pt min.). @ -[None done] U/S interpreted by me (1pt. min.). @ -[None done] What testing was considered but not performed or refused? (CT, X-rays, U/S, labs)? Why? @ -[None] What meds were considered but not given or refused? Why? @ -[None] Did you discuss the management of the patient with other professionals (professionals i.e. , PA, FINANCIAL HEALTH COUNSELOR, lab, RT, psych nurse, social human services assistants, cementer, teacher, bank operations officer, patient case coordinator)? Give summary @ -[No] Was smoking cessation discussed for >3mins.? @ -[No] Was critical care preformed (if so, how long)? @ -[No] Were there social determinants of health that impacted care today? How? (Homelessness, low income, unemployed, alcoholism, drug addiction, transportation, low edu. Level, literacy, decrease access to med. care, detention, rehab)? @ -[No] Was there de-escalation of care discussed even if they declined (Discuss DNR or withdrawal of care, Hospice)? DNR status @ -[No] What co-morbidities impacted this encounter? (DM, HTN, Smoking, COPD, CAD, Cancer, CVA, ARF, Chemo, Hep., AIDS, mental health diagnosis, sleep apnea, morbid obesity)? @ -[None] Was patient admitted / discharged? Hospital course, mention meds given and route, prescriptions, significant lab abnormalities, going to OR and other pertinent info. @ -[Patient is here for evaluation after fall. No definite bony trauma. Discussed appropriate further care and follow-up as well as the return parameters Undiagnosed new problem with uncertain prognosis? @ -[No] Drug Therapy requiring intensive monitoring for toxicity (Heparin, Nitro, Insulin, Cardizem)? @ -[No] Were any procedures done? @ -[No] Diagnosis/symptom? @ -[Acute fall injury Shoulder contusion Acute, or Chronic, or Acute on Chronic? @ -[Acute Uncomplicated (without systemic symptoms) or Complicated (systemic symptoms)? @ -[Uncomplicated Side effects of treatment? @ -[No] Exacerbation, Progression, or Severe Exacerbation? @ -[No] Poses a threat to life or bodily function? How? (Chest pain, USA, [place], pneumonia, PE, COPD, DKA, ARF, appy, cholecystitis, CVA, Diverticulitis, Homicidal, Rody cidal, threat to staff... and all critical care pts) @ -[No] All treatments are based on ideal body weight as in ED triage (Benjy Harris) Disposition <Danitza Nagel - Last Filed: 03/03/25 19:53> Is patient prescribed a controlled substance at d/c from ED?: No <Benjy Harris - Last Filed: 03/15/25 06:43> Clinical Impression: Fall, Contusion Disposition: HOME SELF-CARE Condition: Good Instructions (If sedation given, give patient instructions): Contusion in Adults (ED), Fall Prevention (ED) Referrals: Samson Tripp MD [Primary Care Provider] - 1-2 days
--- NOTE | 2025-03-03 20:42 | XR ---
EXAMINATION TYPE: XR chest 2V DATE OF EXAM: 03/03/2025 8:31 PM COMPARISON: Chest radiographs from 08/15/2024, CTA chest 08/15/2024 TECHNIQUE: XR chest 2V Frontal and lateral views of the chest. CLINICAL INDICATION:Female, 29 years old with history of Back pain status post fall; FINDINGS: Lungs/Pleura: There is no evidence of pleural effusion, focal consolidation, or pneumothorax. Pulmonary vascularity: Unremarkable. Heart/mediastinum: Cardiomediastinal silhouette is unremarkable. Musculoskeletal: No acute osseous pathology. IMPRESSION: No acute cardiopulmonary disease/process. [facility], , 03/03/2025 8:39 PM
--- NOTE | 2025-03-03 20:50 | XR ---
EXAMINATION TYPE: XR shoulder complete RT DATE OF EXAM: 03/03/2025 8:31 PM INDICATION: Patient age:Female; 29 years old; Reason for study: right shoulder injury; pain COMPARISON: Chest radiograph 03/03/2025, right shoulder radiograph 07/07/2014 TECHNIQUE: The right shoulder was examined in AP, internally rotated and scapular Y projections. . FINDINGS: No evidence of acute osseous pathology, joint dislocation, or soft tissue swelling. Unchanged lucent lesion within the mid diaphysis of the right humerus. Demonstrates benign characteristics with no per iosteal reaction or soft tissue component. Narrow zone of transition. The remaining portions of the v isualized chest are unremarkable. IMPRESSION: 1. No acute osseous pathology. 2. Unchanged benign osseous lesion within the mid right humeral diaphysis dating back to 2013. Proba ble fibrous dysplasia. [facility], , 03/03/2025 8:48 PM
--- NOTE | 2025-03-03 20:51 | XR ---
EXAMINATION TYPE: XR tibia fibula LT DATE OF EXAM: 03/03/2025 8:31 PM INDICATION: Patient age:Female; 29 years old; Reason for study: left lower leg pain; PHH. pain COMPARISON: None TECHNIQUE: The left tibia/fibula was examined in AP and lateral projections. FINDINGS: No evidence of any acute osseous pathology, joint dislocation, or soft tissue swelling is n oted. No concerning osseous lesions. IMPRESSION: No evidence of acute fracture. [facility], , 03/03/2025 8:49 PM
== END 2025-03-03 23:17 | disposition home or self-care (01) ==
LOC: EC 19:44
DX: S40.011A Contusion of right shoulder, initial encounter (principal); F17.290 Nicotine dependence, other tobacco product, uncomplicated; Z91.041 Radiographic dye allergy status; W01.0XXA Fall on same level from slipping, tripping and stumbling without subsequent striking against object, initial encounter
CPT/HCPCS: 71046; 99283

== ENCOUNTER 2025-03-19 15:56 | Emergency (ER) | payer OTHER ==
[2025-03-19 16:10] VITALS: RESP 20
--- NOTE | 2025-03-19 16:25 | ED ---
Back Pain HPI - General Chief Complaint: Back Pain/Injury Stated Complaint: Back/Neck/Leg Pain Time Seen by Provider: 03/19/25 16:05 Source: patient, RN notes reviewed Limitations: no limitations - History of Present Illness Initial Comments: 29-year-old female [facility] emergency prior to complaint of upper shoulder trapezius and neck pain. Patient states happened after a fall 3 weeks ago. Patient has been seen by her primary physician and at the emergency department and had a CAT scan showing no acute fracture. Patient states that she does feel some stiffness she has no upper extremity weakness she states she was given [place], steroids gabapentin. Patient denies any new falls no chest pain no other complaints. No headache - Related Data Previous Rx's Medication Instructions Recorded Hyoscyamine Sulfate [Levsin] 0.125 mg PO Q4-6H PRN #30 tab 12/10/23 Naproxen Sodium 550 mg PO BID PRN #20 tablet 12/10/23 Ondansetron Odt [Zofran Odt] 4 mg PO Q8HR PRN #20 tab 12/10/23 Ketorolac [Toradol] 10 mg PO Q6HR #15 tab 05/31/24 methocarbamoL [Robaxin] 500 mg PO TID PRN #15 tab 05/31/24 Albuterol Inhaler [Ventolin Hfa 2 puff INHALATION QID #8 gm 08/14/24 Inhaler] predniSONE [Deltasone] 40 mg PO DAILY 5 Days #10 tab 08/14/24 Albuterol Nebulized [Ventolin 2.5 mg INHALATION Q4H PRN #75 ml 08/15/24 Nebulized] Orphenadrine [Norflex] 100 mg PO Q12H #14 tab 03/19/25 Allergies Allergy/AdvReac Type Severity Reaction Status Date / Time Iodinated Contrast Media Allergy Rash/Hives Verified 03/03/25 19:48 [Iodinated Contrast Media - IV Dye] tramadol HCl [From Ultram] Allergy Rash/Hives Verified 03/03/25 19:48 Review of Systems ROS Statement: Those systems with pertinent positive or pertinent negative responses have been documented in the HPI. ROS Other: All systems not noted in ROS Statement are negative. Past Medical History Past Medical History: Fibromyalgia Additional Past Medical History / Comment(s): migraines, chronic neck pain., fibromyalgia scolisis History of Any Multi-Drug Resistant Organisms: None Reported Date of last positivie culture/infection: unk MDRO Source:: unk Past Surgical History: Section, Ear Surgery, Tonsillectomy Additional Past Surgical History / Comment(s): arm tumor bx, tubes in and out of ears, D & C's, tubal ligation Past Anesthesia/Blood Transfusion Reactions: No Reported Reaction Past Psychological History: Anxiety, Bipolar, Depression Smoking Status: Current every day smoker, Vaper Past Alcohol Use History: None Reported Past Drug Use History: Methamphetamine - Past Family History Father Family Medical History: No Reported History General Exam Limitations: no limitations General appearance: alert, in no apparent distress Head exam: Present: atraumatic, normocephalic, normal inspection Eye exam: Present: normal appearance, PERRL, EOMI. Absent: scleral icterus, conjunctival injection, periorbital swelling ENT exam: Present: normal exam, mucous membranes moist Neck exam: Present: tenderness (Trapezius tenderness no cervical tenderness), full ROM. Absent: normal inspection, meningismus, lymphadenopathy Respiratory exam: Present: normal lung sounds bilaterally. Absent: respiratory distress, wheezes, rales, rhonchi, stridor Cardiovascular Exam: Present: regular rate, normal rhythm, normal heart sounds. Absent: systolic murmur, diastolic murmur, rubs, gallop, clicks Extremities exam: Present: other (Upper extremity strength equal bilaterally neurovascular intact) Back exam: Present: full ROM, tenderness. Absent: paraspinal tenderness, vertebral tenderness Neurological exam: Present: alert, oriented X3, CN II-XII intact, reflexes normal. Absent: motor sensory deficit Course Vital Signs 03/19/25 16:07 Temperature 98.6 F Pulse Rate 99 Respiratory 20 Rate Blood Pressure 110/69 O2 Sat by Pulse 98 Oximetry Medical Decision Making - Medical Decision Making Was pt. sent in by a medical professional or institution (, PA, ARTIST MANNEQUIN COLORING, urgent care, hospital, or alf...) When possible be specific @ -No Did you speak to anyone other than the patient for history (EMS, parent, family, police, friend...)? What history was obtained from this source @ -No Did you review nursing and triage notes (agree or disagree)? Why? @ -I reviewed and agree with nursing and triage notes Were old charts reviewed (outside hosp., previous admission, EMS record, old EKG, old radiological studies, urgent care reports/EKG's, alf records)? Report findings @ -No old charts were reviewed Differential Diagnosis (chest pain, altered mental status, abdominal pain women, abdominal pain men, vaginal bleeding, weakness, fever, dyspnea, syncope, headache, dizziness, GI bleed, back pain, seizure, CVA, palpatations, mental health, musculoskeletal)? @ -Fall, cervical strain, trapezius spasms EKG interpreted by me (3pts min.). @ -[None X-rays interpreted by me (1pt min.). @ -None done CT interpreted by me (1pt min.). @ -None done U/S interpreted by me (1pt. min.). @ -None done What testing was considered but not performed or refused? (CT, X-rays, U/S, labs)? Why? @ -None What meds were considered but not given or refused? Why? @ -None Did you discuss the management of the patient with other professionals (professionals i.e. , PA, ARTIST MANNEQUIN COLORING, lab, RT, psych nurse, elementary school social worker, coupon collection clerk, teacher, peace officer, shoe parts caser)? Give summary @ -No Was smoking cessation discussed for >3mins.? @ -No Was critical care preformed (if so, how long)? @ -No Were there social determinants of health that impacted care today? How? (Homelessness, low income, unemployed, alcoholism, drug addiction, transportation, low edu. Level, literacy, decrease access to med. care, fpc, rehab)? @ -No Was there de-escalation of care discussed even if they declined (Discuss DNR or withdrawal of care, Hospice)? DNR status @ -No What co-morbidities impacted this encounter? (DM, HTN, Smoking, COPD, CAD, Cancer, CVA, ARF, Chemo, Hep., AIDS, mental health diagnosis, sleep apnea, morbid obesity)? @ -None Was patient admitted / discharged? Hospital course, mention meds given and route, prescriptions, significant lab abnormalities, going to OR and other pertinent info. @ -Discharge patient is already had prior imaging and has been seen multiple times. Patient will give muscular axis. Patient discharged in stable condition with department discussed. Undiagnosed new problem with uncertain prognosis? @ -No Drug Therapy requiring intensive monitoring for toxicity (Heparin, Nitro, Insulin, Cardizem)? @ -No Were any procedures done? @ -No Diagnosis/symptom? @ -Fall, trapezius muscle spasms Acute, or Chronic, or Acute on Chronic? @ -Acute Uncomplicated (without systemic symptoms) or Complicated (systemic symptoms)? @ -Uncomplicated Side effects of treatment? @ -No Exacerbation, Progression, or Severe Exacerbation? @ -No Poses a threat to life or bodily function? How? (Chest pain, [place], [place], pneumonia, PE, COPD, DKA, ARF, appy, cholecystitis, CVA, Diverticulitis, Homicidal, Suicidal, threat to staff... and all critical care pts) @ -No Disposition Clinical Impression: Trapezius muscle spasm, Cervical strain Disposition: HOME SELF-CARE Condition: Stable Instructions (If sedation given, give patient instructions): Neck Pain (ED) Additional Instructions: Please return to the Emergency Department if symptoms worsen or any other concerns. Prescriptions: Orphenadrine [Norflex] 100 mg PO Q12H #14 tab Is patient prescribed a controlled substance at d/c from ED?: No Referrals: Samson Tripp MD [Primary Care Provider] - 1-2 days Time of Disposition: 16:25
[2025-03-19] MEDS: ORPHENADRINE 30 MG/ML 2 ML VIAL IM STA (16:32)
[2025-03-19] MEDS: ACET/COD 300 MG/30 MG STARTER PACK TAB BTL PO STA (16:33)
[2025-03-19 16:49] VITALS: BP 112/70; PULSE 86; TEMP 98
== END 2025-03-19 16:48 | disposition home or self-care (01) ==
LOC: EC 15:56
DX: S16.1XXA Strain of muscle, fascia and tendon at neck level, initial encounter (principal); S29.012A Strain of muscle and tendon of back wall of thorax, initial encounter; F17.200 Nicotine dependence, unspecified, uncomplicated; Z88.5 Allergy status to narcotic agent; Z91.041 Radiographic dye allergy status; X58.XXXA Exposure to other specified factors, initial encounter
CPT/HCPCS: 96372; 99283; J2360